=== PATIENT | male | born 1930 | race Caucasian/White ===

== ENCOUNTER 2017-04-09 20:56 | Inpatient (IN) | payer MEDICARE ==
[~2017-04-09] VITALS: Ht 177.8 cm; Wt 79.6 kg
[~2017-04-09 20:56] MED LIST: ASPI81TA19; CALC1TAB87 PO; NITR0.4S SL; OMEP20TA93 PO; PRAV20TA2 PO; TRIA0.1L TOPICAL
[2017-04-09 20:57] VITALS: BP 124/60; PULSE 111; RESP 16; TEMP 102.5; O2SAT 95
[2017-04-09] MEDS ORDERED: IOHEXOL 350 MG/ML 10 ML VIAL (for RAD DIAG) IVCONTRAST ONE (20:57)
[2017-04-09] MEDS ORDERED: ACETAMINOPHEN 325 MG TAB PO ONE (21:15)
[2017-04-09] MEDS ORDERED: SODIUM CHLOR 0.9% 1000 ML INJ 1,000 ML IV ONE ×2 (21:15)
[2017-04-09 21:19] VITALS: RESP 16; O2SAT 97
[2017-04-09 21:50] LABS: AUTOMATED NEUTROPHIL # 82.6 TH/MM3 (1.8-7.7); BASOPHIL # 0.1 TH/MM3 (0-0.2); BASOPHIL % 0.1 % (0.0-2.0); EOSINOPHIL # 0.1 TH/MM3 (0-0.4); EOSINOPHIL % 0.1 % (0.0-4.0); HEMATOCRIT 40.3 % (39.0-51.0); LYMPHOCYTE # 0.8 TH/MM3 (1.0-4.8); MEAN CELL VOLUME 86.9 FL (80.0-100.0); MEAN CORPUSCULAR HEMOGLOBIN 28.9 PG (27.0-34.0); MEAN CORPUSCULAR HGB CONC 33.3 % (32.0-36.0); MONO % 1.8 % (0.0-8.0); PLATELET COUNT 308 TH/MM3 (150-450); RED BLOOD COUNT 4.64 MIL/MM3 (4.50-5.90); RED CELL DISTRIBUTION WIDTH 13.7 % (11.6-17.2); WHITE BLOOD COUNT 85.2 TH/MM3 (4.0-11.0)
--- NOTE | 2017-04-09 21:57 | RADRPT ---
EXAM DATE/TIME: 04/09/2017 21:28 [facility] COMPARISON: CHEST SINGLE AP, August 04, 2015, 19:07. INDICATIONS : Chest pain. MEDICAL HISTORY : Myocardial infarction. Hypertension Gastroesophageal reflux disease. COPD. SURGICAL HISTORY : TURP. ENCOUNTER: Initial ACUITY: 1 day PAIN SCORE: 5/10 LOCATION: Bilateral chest FINDINGS: A single view of the chest demonstrates the lungs to be symmetrically aerated without evidence of mas s, infiltrate or effusion. The cardiomediastinal contours are unremarkable. Osseous structures are intact. CONCLUSION: No acute disease. Morgan Patterson Jr., MD on April 09, 2017 at 21:55 Board Certified Radiologist. This report was verified electronically.
[2017-04-09 22:07] LABS: ANION GAP 9 MEQ/L (5-15); AST (GOT) 195 U/L (15-37); BICARBONATE 27.9 MEQ/L (21.0-32.0); BLOOD UREA NITROGEN 14 MG/DL (7-18); CHLORIDE 96 MEQ/L (98-107); GLOMERULAR FILTRATION RATE 64 ML/MIN (>89); HEMO FLAGS AUTO DIFF; MAGNESIUM 2.1 MG/DL (1.5-2.5); SODIUM (NA) 133 MEQ/L (136-145)
[2017-04-09 22:08] LABS: ALT (GPT) 85 U/L (12-78)
[2017-04-09 22:10] LABS: ALKALINE PHOSPHATASE 365 U/L (45-117); TOTAL BILIRUBIN ADULT 1.3 MG/DL (0.2-1.0)
[2017-04-09 22:12] LABS: BLOOD, URINE NEG (NEG); GLUCOSE,URINE NEG (NEG); KETONE, URINE NEG (NEG); MUCUS URINE FEW /lpf (OCC); NITRITE,URINE NEG (NEG); SQUAMOUS EPITHELIAL CELL URINE <1 /hpf (0-5); URINE COLOR YELLOW (YELLW/STRAW)
[2017-04-09 22:13] LABS: COMMENT (UR) CATH-CULT NOT IND; CULTURE IF INDICATED CATH CULTURE NOT IND
[2017-04-09] MEDS ORDERED: PIPERACIL-TAZO 3.375 GM PREMIX 50 ML IV ONE (22:15)
[2017-04-09] MEDS ORDERED: VANCOMYCIN INJ 1,000 MG in SODIUM CHLOR 0.9% 250 ML INJ 250 ML IV ONE (22:15)
[2017-04-09 22:30] VITALS: BP 105/61; PULSE 102; RESP 18; O2SAT 98
[2017-04-09 23:09] LABS: BANDS 22 % (0-6); METAMYELOCYTES 1 % (0-1); MYELOCYTES 1 % (0-0); NEUTROPHIL # MANUAL DIFF 77.5 TH/MM3 (1.8-7.7); POLYS (SEG NEUTROPHILS) 65 % (16-70); PROMYELOCYTES 2 % (0-0); WBC DIFF SAMPLE 100
[2017-04-09 23:10] LABS: DOHLE BODIES PRESENT (NONE SEEN); TOXIC GRANULATION 1+ (NORMAL)
[2017-04-09 23:11] LABS: BURR CELLS 1+ (NORMAL); OVALOCYTES 1+ (NORMAL); SCAN/DIFF FINAL DIFF MANUAL
[2017-04-09 23:36] LABS: LACTIC ACID GHOST NOT REPORTABLE
--- NOTE | 2017-04-09 23:44 | RADRPT ---
EXAM DATE/TIME: 04/09/2017 23:05 [facility] COMPARISON: CT ABDOMEN & PELVIS W CONTRAST, August 25, 2015, 1:29. INDICATIONS : Patient weak, history of diverticulitis. IV CONTRAST: 97 cc Omnipaque 350 (iohexol) IV ORAL CONTRAST: No oral contrast ingested. RADIATION DOSE: 6.54 CTDIvol (mGy) MEDICAL HISTORY : Cardiovascular disease. Hypertension. SURGICAL HISTORY : None. ENCOUNTER: Initial ACUITY: 1 day PAIN SCALE: 5/10 LOCATION: abdomen TECHNIQUE: Volumetric scanning of the abdomen and pelvis was performed. Using automated exposure control and ad justment of the mA and/or kV according to patient size, radiation dose was kept as low as reasonably achievable to obtain optimal diagnostic quality images. DICOM format image data is available electro nically for review and comparison. FINDINGS: There is subsegmental atelectasis in the both bases. 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 There is a 2 CM in her lymph node in the geeta hepatis characteristic of m etastatic disease. The spleen is normal in size and free of focal defects. The pancreas demonstrates no evidence of mass and there is no dilatation of the pancreatic duct. The adrenal glands are unremar kable. The right kidney is unremarkable. There is a single simple cyst in the left kidney measuring 2 cm. There is free fluid in the pelvis. The bladder appears normal. No wall thickening or intraluminal mas ses are identified. No abnormally enlarged lymph nodes are identified. CONCLUSION: 1. 9 cm mass in the right lobe liver which may reflect gallbladder carcinoma or hepatocellular carcin ismael. This would be accessible to percutaneous biopsy. 2. Mild ascites Raul Rodarte MD on April 09, 2017 at 23:36 Board Certified Radiologist. This report was verified electronically.
[2017-04-09 23:50] LABS: URIC ACID 5.5 MG/DL (2.6-7.2)
--- NOTE | 2017-04-09 23:52 | PD ---
HPI Chief Complaint: General Weakness Time Seen by Provider: 21:11 Travel History International Travel<30 days: No Contact w/Intl Traveler<30days: No Traveled to known affect area: No History of Present Illness HPI Send 86-year-old man who presents to the emergency department complaining of generalized weakness and increased falls ongoing for month or 2, worse over the past week. He's also had night sweats with fevers and chills. He's had some right sided abdominal pain with constipation and decreased appetite. His a history of COPD and is shortness of breath and dyspnea on exertions been worse for the past month or so. Symptoms of been subacutely worsening over that same time. No other aggravating or alleviating factors. History Past Medical History Narrative Medical History diverticulitis COPD CAD, history of [place] in the past History of hypertension, not on medications now History of hyperlipidemia, also off medications now Social History Alcohol Use: Yes (OCC. BEER) Tobacco Use: No (QUIT CHEWING TOBACCO) Allergies-Medications (Allergen,Severity, Reaction): Coded Allergies: prednisone (Unverified Adverse Reaction, Intermediate, ELEVATED BLOOD GLUCOSE, 04/09/17) Reported Meds & Prescriptions Reported Meds & Active Scripts Active Triamcinolone Topical (Triamcinolone Acetonide) 0.1% Lotn 1 Applic TOPICAL TID Reported Aspir-Low (Aspirin) 81 Mg Tabdr Nitrostat SL (Nitroglycerin) 0.4 Mg Subl 0.4 Mg SL DIRECTED PRN 1 tablet under the tongue as needed for chest pain. Repeat every 5 minutes for a total of 3 DOSES or call 911 if NO relief. Omeprazole 20 Mg Tab 20 Mg PO DAILY Calcium 600 with Vitamin D (Calcium Carbonate-Cholecalciferol) 600-400 mg-Unit Tab 1 Tab PO DAILY Review of Systems Except as stated in HPI: all other systems reviewed are Neg Physical Exam Narrative GENERAL: 86-year-old man, there is a little bit chronically ill. Nontoxic. SKIN: Focused skin assessment warm/dry. HEAD: Atraumatic. Normocephalic. EYES: Pupils equal and round. No scleral icterus. No injection or drainage. ENT: No nasal bleeding or discharge. Mucous membranes pink and moist. NECK: Trachea midline. No JVD. CARDIOVASCULAR: Heart rates over rapid. Audible systolic murmur. RESPIRATORY: Mild tachypnea. Lungs are clear. GASTROINTESTINAL: Abdomen soft, non-tender, nondistended. Hepatic and splenic margins not palpable. MUSCULOSKELETAL: No obvious deformities. No clubbing. No cyanosis. No edema. NEUROLOGICAL: Awake and alert. No obvious cranial nerve deficits. Motor grossly within normal limits. Normal speech. PSYCHIATRIC: Appropriate mood and affect; insight and judgment normal. Data Data Last Documented VS Vital Signs Date Time Temp Pulse Resp B/P (MAP) Pulse Ox O2 Delivery O2 Flow Rate FiO2 04/09/17 22:30 102 18 105/61 (76) 98 Room Air 04/09/17 20:57 102.5 Orders Orders Electrocardiogram (04/09/17 21:11) Complete Blood Count With Diff (04/09/17 21:11) Comprehensive Metabolic Panel (04/09/17 21:11) Lactic Acid Sepsis Protocol (04/09/17 21:11) Magnesium (Mg) (04/09/17 21:11) Lipase (04/09/17 21:11) Urinalysis - C+S If Indicated (04/09/17 21:11) Influenzae A/B Antigen (04/09/17 21:11) Blood Culture (04/09/17 21:11) Chest, Single Ap (04/09/17 21:11) Blood Glucose (04/09/17 21:11) Ecg Monitoring (04/09/17 21:11) Iv Access Insert/Monitor (04/09/17 21:11) Oximetry (04/09/17 21:11) Oxygen Administration (04/09/17 21:11) Acetaminophen (Tylenol) (04/09/17 21:15) Sodium Chlor 0.9% 1000 Ml Inj (Ns 1000 M (04/09/17 21:15) Sodium Chlor 0.9% 1000 Ml Inj (Ns 1000 M (04/09/17 21:15) Ct Abd/Pel W Iv Contrast(Rout) (04/09/17 ) Vancomycin Inj (Vancomycin Inj) (04/09/17 22:15) Piperacil-Tazo 3.375 Gm Premix (Zosyn 3. (04/09/17 22:15) Uric Acid (04/09/17 23:13) Ldh Serum (04/09/17 23:13) Pathologist Smear Review (04/09/17 23:13) Consult Hematology (04/09/17 ) Iohexol 350 Inj (Omnipaque 350 Inj) (04/09/17 20:57) Admit Order (Ed Use Only) (04/09/17 ) Vital Signs (Adult) Q4H (04/09/17 23:59) Diet Heart Healthy (04/10/17 Breakfast) Activity Bed Rest (04/09/17 23:59) Notify Dr: Other (04/09/17 23:59) Labs Laboratory Tests Test 04/09/17 21:30 04/09/17 21:59 04/09/17 23:43 White Blood Count 85.2 TH/MM3 Red Blood Count 4.64 MIL/MM3 Hemoglobin 13.4 GM/DL Hematocrit 40.3 % Mean Corpuscular Volume 86.9 FL Mean Corpuscular Hemoglobin 28.9 PG Mean Corpuscular Hemoglobin Concent 33.3 % Red Cell Distribution Width 13.7 % Platelet Count 308 TH/MM3 Mean Platelet Volume 7.3 FL Neutrophils (%) (Auto) 97.0 % Lymphocytes (%) (Auto) 1.0 % Monocytes (%) (Auto) 1.8 % Eosinophils (%) (Auto) 0.1 % Basophils (%) (Auto) 0.1 % Neutrophils # (Auto) 82.6 TH/MM3 Lymphocytes # (Auto) 0.8 TH/MM3 Monocytes # (Auto) 1.5 TH/MM3 Eosinophils # (Auto) 0.1 TH/MM3 Basophils # (Auto) 0.1 TH/MM3 CBC Comment AUTO DIFF Differential Total Cells Counted 100 Neutrophils % (Manual) 65 % Band Neutrophils % 22 % Lymphocytes % 3 % Monocytes % 6 % Neutrophils # (Manual) 77.5 TH/MM3 Metamyelocytes 1 % Myelocytes 1 % Promyelocytes 2 % Differential Comment FINAL DIFF MANUAL Atypical Lymphocytes % Toxic Granulation 1+ Dohle Bodies PRESENT Ovalocytes 1+ [place] Cells 1+ Blood Smear Pathologist Review Blood Urea Nitrogen 14 MG/DL Creatinine 1.09 MG/DL Random Glucose 139 MG/DL Total Protein 6.2 GM/DL Albumin 2.6 GM/DL Calcium Level 10.1 MG/DL Magnesium Level 2.1 MG/DL Alkaline Phosphatase 365 U/L Aspartate Amino Transf (AST/SGOT) 195 U/L Alanine Aminotransferase (ALT/SGPT) 85 U/L Total Bilirubin 1.3 MG/DL Sodium Level 133 MEQ/L Potassium Level 4.0 MEQ/L Chloride Level 96 MEQ/L Carbon Dioxide Level 27.9 MEQ/L Anion Gap 9 MEQ/L Estimat Glomerular Filtration Rate 64 ML/MIN Lactic Acid Level 3.0 mmol/L Uric Acid 5.5 MG/DL Lactate Dehydrogenase 413 U/L Lipase 69 U/L Urine Color YELLOW Urine Turbidity CLEAR Urine pH 7.0 Urine Specific [place] 1.017 Urine Protein TRACE mg/dL Urine Glucose (UA) NEG mg/dL Urine Ketones NEG mg/dL Urine Occult Blood NEG Urine Nitrite NEG Urine Bilirubin NEG Urine Urobilinogen 2.0 MG/DL Urine Leukocyte Esterase NEG Urine RBC 3 /hpf Urine WBC 4 /hpf Urine Squamous Epithelial Cells <1 /hpf Urine Mucus FEW /lpf Microscopic Urinalysis Comment CATH-CULT NOT IND MDM Medical Decision Making Medical Screen Exam Complete: No Emergency Medical Condition: No Interpretation(s) My review of EKG: Sinus tachycardia at a rate of 106, leftward axis, possible left anterior fascicular block, normal intervals, no definite evidence of acute ischemia. LABS: CBC remarkable for a white count of 85,000, 22% bands CMP remarkable for elevated total bili, AST, ALT, alkaline phosphatase Low total protein Lactate 3.0 UA is unremarkable. Chest x-ray: No acute disease. CT abdomen and pelvis: 9 cm mass in the right lobe of the liver which may reflect gallbladder carcinoma or hepatocellular carcinoma. Mild ascites. Differential Diagnosis Infection, sepsis UTI, pneumonia, malignancy, other Narrative Course Medical decision-making 86-year-old man who presents to the emergency department complaining of generalized weakness, night sweats, fevers chills, worsening of the past week or so. Markedly elevated white count suggesting malignancy or severe infection , favor malignancy. CT scan shows hepatic mass. Empirically covered antibiotics, given IV fluid resuscitation. I spoke with Dr. Reza, who requested LDH and additional labs. He will consult on patient. We'll plan on admission to medicine. Diagnosis Primary Impression: Leukocytosis Additional Impression: Liver mass Chapo Contreras MD Apr 09, 2017 23:52
[2017-04-10] VITALS (13 sets, daily range): BP systolic 74–104; BP diastolic 50–58; PULSE 86–110; RESP 16–20; TEMP 96.8–99.1; O2SAT 90–96
[2017-04-10] MEDS: SODIUM CHLOR 0.9% 1000 ML INJ 1,000 ML IV SCH ×4 (00:13→20:11)
[2017-04-10] MEDS ORDERED: SENNOSIDES 8.6 MG TAB PO PRN (00:15)
[2017-04-10] MEDS ORDERED: Vancomycin Consult Pharmacy 1 EA OTHER SCH (00:15)
[2017-04-10] MEDS ORDERED: ACETAMINOPHEN/HYDROcodone 325 MG/5 MG TAB PO PRN (00:15)
[2017-04-10] MEDS ORDERED: ACETAMINOPHEN 325 MG TAB PO PRN (00:15)
[2017-04-10] MEDS ORDERED: ONDANSETRON HCL 4 MG/2 ML VIAL IVP PRN (00:15)
[2017-04-10] MEDS ORDERED: LACTULOSE SYRUP 20 GM/30 ML CUP PO PRN (00:15)
[2017-04-10] MEDS ORDERED: BISACODYL 10 MG SUPP RECTAL PRN (00:15)
[2017-04-10] MEDS ORDERED: SODIUM CHLORIDE 0.9% FLUSH 10 ML FLUSH IV FLUSH PRN (00:15)
[2017-04-10] MEDS ORDERED: MORPHINE SULFATE 4 MG/ML INJ IV PUSH PRN (00:15)
[2017-04-10] MEDS ORDERED: MAGNESIUM HYDROXIDE SUSP 30 ML CUP PO PRN (00:15)
--- NOTE | 2017-04-10 01:38 | HHI.HP ---
HPI Service [facility] Primary Care Physician Azul Jones MD Admission Diagnosis Leukocytosis, liver mass Diagnoses: (1) Sepsis Diagnosis: Principal (2) Leukocytosis Diagnosis: Principal (3) Dehydration Diagnosis: Principal (4) Liver mass Diagnosis: Principal Travel History International Travel<30 Days: No Contact w/Intl Traveler <30 Da: No Traveled to Known Affected Are: No History of Present Illness This is an 86-year-old male with PMH of HTN, CAD, COPD and Hyperlipidemia who presented to the ER with complaints of generalized weakness and recurrent falls for 3-4wks. States weakness progressively worse, today w/ fall x2. Denies head trauma or LOC. Denies chest pain, cough or sick contacts. Does report fever, chills and night sweats x1 wk. On arrival, BP 124/60, HR 111, O2 sat 95 % on RA, Temp 102.5. WBC 85.2, previously 9.3 on 10/07/15. Bands 22%. GFR 64. Lactic Acid 3.0. LFTs elevated. UA negative. CXR with no acute findings. CT Abd/Pelvis w/ 9cm liver mass, possibly gallbladder carcinoma or hepatocellular carcinoma, amenable to biopsy. Dr. Epps consulted by ER physician, recommended LDH and further eval for likely ca. S/p Blood Cultures, Vanc/Zosyn in ER. Review of Systems Except as stated in HPI: all other systems reviewed are Neg ROS: 14 point review of systems otherwise negative. Past Family Social History Past Medical History PMH: HTN, CAD, COPD and Hyperlipidemia Past Surgical History PAST SURGICAL HISTORY: Cataract Surgery, Lens Implant, TURP Allergies: Coded Allergies: prednisone (Unverified Adverse Reaction, Intermediate, ELEVATED BLOOD GLUCOSE, 04/09/17) Family History PAST FAMILY HISTORY: Reviewed. No h/o DM or CAD Social History PAST SOCIAL HISTORY: Negative for alcohol, tobacco or drugs. Physical Exam Vital Signs Vital Signs Date Time Temp Pulse Resp B/P (MAP) Pulse Ox O2 Delivery O2 Flow Rate FiO2 04/10/17 01:03 97.4 98 18 99/50 (66) 94 04/10/17 00:50 04/09/17 22:30 102 18 105/61 (76) 98 Room Air 04/09/17 21:19 16 97 Room Air 04/09/17 21:19 97 Room Air 04/09/17 20:57 102.5 111 16 124/60 (81) 95 Room Air Physical Exam PE: GENERAL: Pleasant elderly white male in no acute distress. HEENT: PERRLA, EOMI. No scleral icterus or conjunctival pallor. No lid lag or facial droop. CARDIOVASCULAR: Regular rate and rhythm. No obvious murmurs to auscultation. No chest tenderness to palpation. RESPIRATORY: No obvious rhonchi or wheezing. Clear to auscultation. Breath sounds equal bilaterally. GASTROINTESTINAL: Abdomen soft, non-tender, nondistended. BS normal. MUSCULOSKELETAL: Extremities without clubbing, cyanosis, or edema. No obvious deformities. NEUROLOGICAL: Awake, alert and oriented x4. No focal neurologic deficits. Moving both upper and lower extremities spontaneously. Laboratory Laboratory Tests Test 04/09/17 21:30 04/09/17 21:59 04/09/17 23:43 White Blood Count 85.2 Red Blood Count 4.64 Hemoglobin 13.4 Hematocrit 40.3 Mean Corpuscular Volume 86.9 Mean Corpuscular Hemoglobin 28.9 Mean Corpuscular Hemoglobin Concent 33.3 Red Cell Distribution Width 13.7 Platelet Count 308 Mean Platelet Volume 7.3 Neutrophils (%) (Auto) 97.0 Lymphocytes (%) (Auto) 1.0 Monocytes (%) (Auto) 1.8 Eosinophils (%) (Auto) 0.1 Basophils (%) (Auto) 0.1 Neutrophils # (Auto) 82.6 Lymphocytes # (Auto) 0.8 Monocytes # (Auto) 1.5 Eosinophils # (Auto) 0.1 Basophils # (Auto) 0.1 CBC Comment AUTO DIFF Differential Total Cells Counted 100 Neutrophils % (Manual) 65 Band Neutrophils % 22 Lymphocytes % 3 Monocytes % 6 Neutrophils # (Manual) 77.5 Metamyelocytes 1 Myelocytes 1 Promyelocytes 2 Differential Comment FINAL DIFF MANUAL Atypical Lymphocytes Toxic Granulation 1+ Dohle Bodies PRESENT Ovalocytes 1+ [place] Cells 1+ Blood Smear Pathologist Review Blood Urea Nitrogen 14 Creatinine 1.09 Random Glucose 139 Total Protein 6.2 Albumin 2.6 Calcium Level 10.1 Magnesium Level 2.1 Alkaline Phosphatase 365 Aspartate Amino Transf (AST/SGOT) 195 Alanine Aminotransferase (ALT/SGPT) 85 Total Bilirubin 1.3 Sodium Level 133 Potassium Level 4.0 Chloride Level 96 Carbon Dioxide Level 27.9 Anion Gap 9 Estimat Glomerular Filtration Rate 64 Lactic Acid Level 3.0 2.2 Uric Acid 5.5 Lactate Dehydrogenase 413 Lipase 69 Urine Color YELLOW Urine Turbidity CLEAR Urine pH 7.0 Urine Specific [place] 1.017 Urine Protein TRACE Urine Glucose (UA) NEG Urine Ketones NEG Urine Occult Blood NEG Urine Nitrite NEG Urine Bilirubin NEG Urine Urobilinogen 2.0 Urine Leukocyte Esterase NEG Urine RBC 3 Urine WBC 4 Urine Squamous Epithelial Cells <1 Urine Mucus FEW Microscopic Urinalysis Comment CATH-CULT NOT IND Date/Time Source Procedure Growth Status 04/09/17 21:30 Blood Peripheral Aerobic Blood Culture Pending Received 04/09/17 21:30 Blood Peripheral Anaerobic Blood Culture Pending Received 04/09/17 21:42 Nasal Washing Influenza Types A,B Antigen (MARK) - Final NEGATIVE FOR FLU A AND B ANTIGEN.... Complete Result Diagram: 04/09/17212904/09/172129 Caprini VTE Risk Assessment Caprini VTE Risk Assessment: Mod/High Risk (score >= 2) Caprini Risk Assessment Model Point Value = 1 Point Value = 2 Point Value = 3 Point Value = 5 Age 41-60 Minor surgery BMI > 25 kg/m2 Swollen legs Varicose veins or History of unexplained or recurrent spontaneous Oral contraceptives or hormone replacement Sepsis (< 1 month) Serious lung disease, including pneumonia (< 1 month) Abnormal pulmonary function Acute myocardial infarction Congestive heart failure (< 1 month) History of inflammatory bowel disease Medical patient at bed rest Age 61-74 Arthroscopic surgery Major open surgery (> 45 min) Laparoscopic surgery (> 45 min) Malignancy Confined to bed (> 72 hours) Immobilizing plaster cast Central venous access Age >= 75 History of VTE Family history of VTE Factor V Leiden Prothrombin [id number] Lupus anticoagulant Anticardiolipin antibodies Elevated serum homocysteine Heparin-induced thrombocytopenia Other congenital or acquired thrombophilia Stroke (< 1 month) Elective arthroplasty Hip, pelvis, or leg fracture Acute spinal cord injury (< 1 month) Prophylaxis Regimen Total Risk Factor Score Risk Level Prophylaxis Regimen 0-1 Low Early ambulation 2 Moderate Order ONE of the following: *Sequential Compression Device (SCD) *Heparin 5000 units SQ BID 3-4 Higher Order ONE of the following medications: *Heparin 5000 units SQ TID *Enoxaparin/Lovenox 40 mg SQ daily (WT < 150 kg, CrCl > 30 mL/min) *Enoxaparin/Lovenox 30 mg SQ daily (WT < 150 kg, CrCl > 10-29 mL/min) *Enoxaparin/Lovenox 30 mg SQ BID (WT < 150 kg, CrCl > 30 mL/min) AND/OR *Sequential Compression Device (SCD) 5 or more Highest Order ONE of the following medications: *Heparin 5000 units SQ TID (Preferred with Epidurals) *Enoxaparin/Lovenox 40 mg SQ daily (WT < 150 kg, CrCl > 30 mL/min) *Enoxaparin/Lovenox 30 mg SQ daily (WT < 150 kg, CrCl > 10-29 mL/min) *Enoxaparin/Lovenox 30 mg SQ BID (WT < 150 kg, CrCl > 30 mL/min) AND *Sequential Compression Device (SCD) Assessment and Plan Problem List: (1) Sepsis ICD Code: A41.9 - Sepsis, unspecified organism (2) Leukocytosis ICD Code: D72.829 - Elevated white blood cell count, unspecified (3) Liver mass ICD Code: R16.0 - Hepatomegaly, not elsewhere classified Status: Acute (4) Dehydration ICD Code: E86.0 - Dehydration Assessment and Plan A/P: 1. Sepsis: Temp 102.5, HR 111, Source-unclear. S/p Blood Cultures, Vanc/ Zosyn in ER. Follow up cultures, continue IV Abx. U/a negative, CXR w/ no acute findings, images reviewed by me. 2. Leukocytosis: WBC 85.2, previously 9.3 on 10/07/15, +bandemia, concern for underlying malignancy, Dr. Epps consulted by ER physician, recommended additional lab work and will eval in am. 3. Liver Mass: CT Abd/Pelvis w/ possible gallbladder ca vs hepatocellular ca, images reviewed by me. Oncology consulted 4. Dehydration: GFR 64, U/a negative, IVF for hydration. 5. DVT Prophylaxis: SCD/Teds. 6. Social work for d/c planning as needed. 7. Case discussed w/ ER physician at length. Physician Certification 2 Midnight Certification Type: Admission for Inpatient Services Order for Inpatient Services The services are ordered in accordance with Medicare regulations or non- Medicare payer requirements, as applicable. In the case of services not specified as inpatient-only, they are appropriately provided as inpatient services in accordance with the 2-midnight benchmark. Estimated LOS (days): 2 days is the estimated time the patient will need to remain in the hospital, assuming treatment plan goals are met and no additional complications. Post-Hospital Plan: Not yet determined Kiesha Garcia MD Apr 10, 2017 01:38
[2017-04-10] MEDS ORDERED: SODIUM CHLOR 0.9% 1000 ML INJ 1,000 ML IV ONE ×2 (04:30→06:30)
[2017-04-10 07:26] LABS: AUTOMATED NEUTROPHIL # 101.4 TH/MM3 (1.8-7.7); BASOPHIL # 0.3 TH/MM3 (0-0.2); BASOPHIL % 0.3 % (0.0-2.0); EOSINOPHIL # 0.3 TH/MM3 (0-0.4); EOSINOPHIL % 0.3 % (0.0-4.0); HEMATOCRIT 35.4 % (39.0-51.0); LYMPH % 0.5 % (9.0-44.0); LYMPHOCYTE # 0.5 TH/MM3 (1.0-4.8); MEAN CELL VOLUME 88.2 FL (80.0-100.0); MEAN CORPUSCULAR HEMOGLOBIN 28.8 PG (27.0-34.0); MEAN CORPUSCULAR HGB CONC 32.7 % (32.0-36.0); NEUT % 96.9 % (16.0-70.0); PLATELET COUNT 307 TH/MM3 (150-450); RED BLOOD COUNT 4.01 MIL/MM3 (4.50-5.90); RED CELL DISTRIBUTION WIDTH 13.8 % (11.6-17.2); WHITE BLOOD COUNT 104.5 TH/MM3 (4.0-11.0)
[2017-04-10 07:27] LABS: HEMO FLAGS AUTO DIFF
[2017-04-10 08:09] LABS: BICARBONATE 23.6 MEQ/L (21.0-32.0); POTASSIUM 4.5 MEQ/L (3.5-5.1)
[2017-04-10 08:15] LABS: BANDS 11 % (0-6); NEUTROPHIL # MANUAL DIFF 103.5 TH/MM3 (1.8-7.7); POLYS (SEG NEUTROPHILS) 88 % (16-70); WBC DIFF SAMPLE 100
[2017-04-10 08:17] LABS: PLATELET ESTIMATE SMEAR NORMAL (NORMAL); PLATELET MORPHOLOGY NORMAL (NORMAL); SCAN/DIFF FINAL DIFF MANUAL
[2017-04-10] MEDS: CEFEPIME INJ 1,000 MG in SODIUM CHLORIDE 0.9% INJ 100 ML IV SCH ×2 (08:44→20:08)
[2017-04-10] MEDS: SODIUM CHLORIDE 0.9% FLUSH 10 ML FLUSH IV FLUSH SCH ×2 (08:44→20:09)
[2017-04-10] MEDS: TRIAMCINOLONE ACET 0.1% LOTION 60 ML BTL TOPICAL SCH ×3 (08:45→17:18)
[2017-04-10] MEDS: DOCUSATE SODIUM 50 MG/SENNA 8.6 MG TAB PO SCH ×2 (08:45→20:09)
--- NOTE | 2017-04-10 12:29 | EKG ---
Date Performed: 04/09/2017 Time Performed: 21:40:56 PTAGE: 86 years EKG: SINUS TACHYCARDIA PATTERN CONSISTENT WITH PULMONARY DISEASE LEFT ANTERIOR FASCICULAR BLOCK ABNORMAL ECG PREVIOUS TRACING : 08/04/2015 19.38 Since previous tracing, there is no longer criteria for inf erior infarct age indeterminate; otherwise, no significant change. DOCTOR: Nic Roberts Interpretating Date/Time 04/10/2017 12:27:51
[2017-04-10] MEDS ORDERED: MAGNESIUM HYDROXIDE SUSP 30 ML CUP PO ONE (14:30)
[2017-04-10] MEDS ORDERED: DOCUSATE SODIUM 50 MG/SENNA 8.6 MG TAB PO ONE (14:30)
[2017-04-10] MEDS ORDERED: VANCOMYCIN INJ 1,250 MG in SODIUM CHLOR 0.9% 250 ML INJ 250 ML IV SCH (18:00)
[2017-04-10] MEDS ORDERED: SODIUM CHLORID 0.9% 500 ML INJ 500 ML IV ONE (23:45)
[2017-04-11] VITALS (7 sets, daily range): BP systolic 92–101; BP diastolic 60–71; PULSE 111–121; RESP 16–22; TEMP 96.7–99.1; O2SAT 87–93
[2017-04-11] MEDS: SODIUM CHLOR 0.9% 1000 ML INJ 1,000 ML IV SCH ×2 (01:50→15:51)
--- NOTE | 2017-04-11 05:46 | MB ---
cc: TOMASZ CUBA DATE OF CONSULTATION: 04/10/2017 DATE OF : 1930. REASON FOR CONSULTATION Patient with severe leukocytosis. HISTORY OF PRESENT ILLNESS: This is an 86 year-old male with a history of hypertension, coronary artery disease, COPD and hyperlipidemia, who presents to the emergency department with progressive weakness, weight loss and night sweats. He has been having night sweats for the past six months and states that his shirt is drenched in sweat at night. He has been losing weight and endorses 35 pound weight loss. His appetite is poor. He has had recurrent falls over the past 3-4 weeks. In the emergency department, the patient was found to have leukocytosis with a white blood cell count of 85.2. This has climbed up to 104,000. His hemoglobin was 13.4 and platelet count was 308. His BNP was elevated to 328. His LDH was elevated to 413. On the differential neutrophils are increased. There are a few bands. The patient underwent CT scan of the abdomen which revealed a 9-cm mass in the right lobe of the liver which is concerning for metastatic carcinoma. The patient has not had any fevers since admission. He has had somewhat low blood pressure and he is tachycardiac. Blood cultures were drawn on admission and they are positive for gram-negative rods. The patient is currently on IV cefepime. REVIEW OF SYSTEMS A comprehensive 14-point review of systems was completed which is negative except as described in the HPI. PAST MEDICAL HISTORY 1. Hypertension 2. Coronary artery disease 3. COPD 4. Hyperlipidemia. PAST SURGICAL HISTORY Cataract surgery. Lens implant. TURP x3. MEDICATIONS 1. Vancomycin 1250 IV q18 hours. 2. Cefepime 1000 milligrams IV q12 hours. 3. Senna/docusate p.r.n. 4. Triamcinolone cream applied topically t.i.d. p.r.n. 5. Zofran 4 mg IV p.r.n. 6. Tylenol 650 p.o. p.r.n. 7. Cecil 5/325 one tablet p.o. q4 hours p.r.n. 8. Morphine sulfate injection 2 milligrams IV q3 hours p.r.n. 9. Milk of Magnesia p.r.n. 10. Senna one tablet p.o. p.r.n. ALLERGIES PREDNISONE. FAMILY HISTORY: Family history was reviewed and is noncontributory to this admission. SOCIAL HISTORY He does not smoke cigarettes. He does not drink alcohol. No illicit drug use. PHYSICAL EXAMINATION Vital signs: Blood pressure is 104/56, pulse is in the 100s, temperature is 98.7, O2 sats are 94% on room air. General: Elderly patient in no apparent distress. HEENT: Pupils are equal, round, and reactive to light. EOMI. No oral thrush. No oral lesions. Neck is supple. No JVD, no bruits. No lymphadenopathy. Chest: Clear to auscultation bilaterally. Cardiac: Tachycardiac. S1-S2 regular rate. Abdomen: Right upper quadrant tenderness. Bowel sounds are present. Extremities: Without any edema, erythema or cyanosis. Skin: Without any petechiae, lesion or bruises. Neuro: No focal deficits. Psychiatric: Mood and affect is appropriate. LABORATORY DATA WBC 104.5, hemoglobin 11.6, platelet count is 307, neutrophils are increased, lymphocytes are 0.5, bands are reported on the differential. Serum chemistries: Sodium of 137, potassium 4.5, chloride 106, CO2 23.6, BUN is 13, creatinine 0.89, GFR is 81, lactic acid is 1.9, calcium 8.60, BMP 228. LDH is 413. IMAGING STUDIES CT scan of the abdomen and pelvis was reviewed. There is a 9 cm mass in the right lobe of the liver. ASSESSMENT/PLAN This is an 86-year-old male with a history of hypertension, hyperlipidemia, coronary artery disease who presents to the emergency department with a 6-month history of loss of appetite, weight loss of 30 pounds and night sweats. 1. Leukocytosis with a white blood cell count in the 104,000 range. These are primarily neutrophils. I have reviewed the peripheral smear. No atypical lymphocytes or blast cells were seen. Neutrophils show toxic granulation and Dohle bodies which can be seen with an infectious process. There is a possibility of leukemoid reaction. However, there is a possibility of underlying leukemia or lymphoma. His blood cultures are growing gram-negative rods. I agree with IV antibiotics. If his WBC remains elevated we will obtain a bone marrow biopsy on Wednesday. I would hold off on any leukoreduction with Hydrea since he is asymptomatic. There are no other cytopenias. Hemoglobin and platelet count is within normal range. There is no lymphadenopathy on exam. I will obtain a CT of the chest. I reviewed the CT of the abdomen and there is a mass in the liver. The patient states that he has had a mass for the past two years. It has never been biopsied. We will need to biopsy this mass. 2. Liver mass as stated above. Will obtain a CT-guided biopsy of this mass on Wednesday. Will ask IR for the procedure. 3. Gram-negative bacteremia and sepsis. Continue antibiotics for susceptibility. I will follow IV and susceptibility for microbiology. Influenza screen was negative. Thank you for allowing me to participate in the care of this patient. I will continue to follow this patient along. MD ANIBAL Alegre/BOLIVAR /1:55 AM /5:19 AM SAVANNA
[2017-04-11 06:19] LABS: HEMATOCRIT 37.9 % (39.0-51.0); MEAN CELL VOLUME 88.2 FL (80.0-100.0); MEAN CORPUSCULAR HEMOGLOBIN 27.7 PG (27.0-34.0); MEAN CORPUSCULAR HGB CONC 31.4 % (32.0-36.0); PLATELET COUNT 347 TH/MM3 (150-450); RED CELL DISTRIBUTION WIDTH 13.7 % (11.6-17.2); WHITE BLOOD COUNT 111.5 TH/MM3 (4.0-11.0)
[2017-04-11 06:25] LABS: HEMO FLAGS AUTO DIFF
[2017-04-11 07:19] LABS: ALKALINE PHOSPHATASE 306 U/L (45-117); ALT (GPT) 100 U/L (12-78); ANION GAP 9 MEQ/L (5-15); AST (GOT) 232 U/L (15-37); BICARBONATE 22.3 MEQ/L (21.0-32.0); BLOOD UREA NITROGEN 19 MG/DL (7-18); CHLORIDE 103 MEQ/L (98-107); GLOMERULAR FILTRATION RATE 50 ML/MIN (>89); POTASSIUM 4.9 MEQ/L (3.5-5.1); SODIUM (NA) 134 MEQ/L (136-145)
[2017-04-11 08:42] LABS: BANDS 11 % (0-6); NEUTROPHIL # MANUAL DIFF 109.3 TH/MM3 (1.8-7.7); POLYS (SEG NEUTROPHILS) 87 % (16-70); WBC DIFF SAMPLE 200
[2017-04-11 08:43] LABS: PLATELET ESTIMATE SMEAR NORMAL (NORMAL); PLATELET MORPHOLOGY NORMAL (NORMAL); SCAN/DIFF FINAL DIFF MANUAL
--- NOTE | 2017-04-11 08:47 | PD.ONC.PN ---
Subjective Subjective Remarks resting comfortably in bed using CPAP no fevers/no GR mild dyspnea earlier--better now. no chest discomfort family bedside Objective Data Date Time Temp Pulse Resp B/P (MAP) Pulse Ox O2 Delivery O2 Flow Rate FiO2 04/11/17 04:00 96.7 113 22 94/61 (72) 92 Manual Cuff/Palpation 04/10/17 23:10 98.0 104 20 81/56 (64) 92 04/10/17 20:06 108 04/10/17 19:00 98.5 101 16 90/51 (64) 94 04/10/17 17:11 104/56 (72) 04/10/17 16:00 99.1 110 18 87/58 (68) 90 04/10/17 11:47 99.0 97 18 97/53 (68) 93 04/10/17 10:01 93 21 04/10/17 08:48 97 04/11/17 04/11/17 04/11/17 07:00 15:00 23:00 Intake Total 1140 ml Balance 1140 ml Result Diagram: 04/11/17 0550 04/11/17 0550 Laboratory Results Laboratory Tests Test 04/11/17 05:50 White Blood Count 111.5 TH/MM3 Red Blood Count 4.30 MIL/MM3 Hemoglobin 11.9 GM/DL Hematocrit 37.9 % Mean Corpuscular Volume 88.2 FL Mean Corpuscular Hemoglobin 27.7 PG Mean Corpuscular Hemoglobin Concent 31.4 % Red Cell Distribution Width 13.7 % Platelet Count 347 TH/MM3 Mean Platelet Volume 7.4 FL CBC Comment AUTO DIFF Differential Total Cells Counted 200 Neutrophils % (Manual) 87 % Band Neutrophils % 11 % Lymphocytes % 1 % Monocytes % 2 % Neutrophils # (Manual) 109.3 TH/MM3 Differential Comment FINAL DIFF MANUAL Platelet Estimate NORMAL Platelet Morphology Comment NORMAL Red Cell Morphology Comment NORMAL Blood Urea Nitrogen 19 MG/DL Creatinine 1.35 MG/DL Random Glucose 119 MG/DL Total Protein 5.4 GM/DL Albumin 2.2 GM/DL Calcium Level 9.5 MG/DL Alkaline Phosphatase 306 U/L Aspartate Amino Transf (AST/SGOT) 232 U/L Alanine Aminotransferase (ALT/SGPT) 100 U/L Total Bilirubin 1.0 MG/DL Sodium Level 134 MEQ/L Potassium Level 4.9 MEQ/L Chloride Level 103 MEQ/L Carbon Dioxide Level 22.3 MEQ/L Anion Gap 9 MEQ/L Estimat Glomerular Filtration Rate 50 ML/MIN Culture Results Microbiology Date/Time Source Procedure Growth Status 04/09/17 21:30 Blood Peripheral Aerobic Blood Culture - Preliminary NO GROWTH IN 1 DAY Resulted 04/09/17 21:30 Anaerobic Blood Culture - Preliminary Gram Negative Mario Resulted 04/09/17 21:20 Blood Peripheral Aerobic Blood Culture - Preliminary NO GROWTH IN 1 DAY Resulted 04/09/17 21:20 Anaerobic Blood Culture - Preliminary Gram Negative Mario Resulted 04/09/17 21:42 Nasal Washing Influenza Types A,B Antigen (MARK) - Final NEGATIVE FOR FLU A AND B ANTIGEN.... Complete Administered Medications Medications (Trade) Dose Ordered Sig/Tyler Route PRN Reason Start Time Stop Time Status Last Admin Dose Admin Cefepime HCl 1000 mg/Sodium Chloride 100 ml @ 200 mls/hr Q12H IV 04/10/17 09:00 04/10/17 20:08 Sodium Chloride 1,000 ml @ 100 mls/hr Q10H IV 04/10/17 00:13 04/11/17 01:50 Acetaminophen (Tylenol) 650 mg Q6H PRN PO FEVER/PAIN SCALE 1 TO 2 04/10/17 00:15 04/10/17 17:18 Triamcinolone Acetonide (Kenalog 0.1% Lotion) 1 applic TID TOPICAL 04/10/17 09:00 04/10/17 17:18 Vancomycin HCl 1250 mg/Sodium Chloride 262.5 ml @ 250 mls/hr Q18H IV 04/10/17 18:00 04/10/17 17:17 Objective Remarks GENERAL: nad NECK: Supple, trachea midline. No JVD or lymphadenopathy. LYMPHATIC: No adenopathy. CARDIOVASCULAR: Regular rate and rhythm without murmurs. RESPIRATORY: Breath sounds equal bilaterally. No accessory muscle use. GASTROINTESTINAL: Abdomen soft, mild tenderness upper quadrant EXTREMITIES: No cyanosis, or edema. Assessment/Plan Problem List: (1) Pneumonia, community acquired ICD Codes: J18.9 - Community acquired pneumonia Status: Acute (2) COPD (chronic obstructive pulmonary disease) ICD Codes: J44.9 - Chronic obstructive pulmonary disease Status: Acute (3) Liver mass ICD Codes: R16.0 - Hepatomegaly, not elsewhere classified Status: Acute (4) Leukocytosis ICD Codes: D72.829 - Elevated white blood cell count, unspecified (5) Sepsis ICD Codes: A41.9 - Sepsis, unspecified organism (6) Dermatitis ICD Codes: L30.9 - Dermatitis, unspecified Assessment 86-year-old male with a history of hypertension, hyperlipidemia, coronary artery disease who presents to the emergency department with a 6-month history of loss of appetite, weight loss of 30 pounds and night sweats. 1. Leukocytosis continues to worsen - peripheral smear did not show any obvious blast cells - concern for underlying lymphoma,leukemia,MDS, MPN or another maligancy - Bone marrow biopsy in AM - will start Hydrea to cytoreduce - check daily LDH, Uric acid, Mag and Phosp to monitor for TLS 2. Liver mass - CT guided biopsy when bone marrow biopsy is completed - tumor markers ordered - CT chest did not show nay masses/LAD//possible pneumonia 3. Gram-negative bacteremia and sepsis. - On cefepime - ID and susceptibility pending 4. Mild dyspnea ? pneumonia/leukostasis - IV decadron X 1 - appears to be comfortable now - will closely monitor Had long discussion with patient's daughter and d/w rn o/n events reviewed Godwin Epps MD Apr 11, 2017 08:47
[2017-04-11] MEDS: DOCUSATE SODIUM 50 MG/SENNA 8.6 MG TAB PO SCH ×2 (09:00→20:27)
[2017-04-11] MEDS: CEFEPIME INJ 1,000 MG in SODIUM CHLORIDE 0.9% INJ 100 ML IV SCH (09:28)
[2017-04-11] MEDS: SODIUM CHLORIDE 0.9% FLUSH 10 ML FLUSH IV FLUSH SCH ×2 (09:28→20:24)
[2017-04-11] MEDS: TRIAMCINOLONE ACET 0.1% LOTION 60 ML BTL TOPICAL SCH ×3 (09:32→18:00)
[2017-04-11] MEDS: HYDROXYUREA 500 MG CAP PO SCH ×2 (10:42→20:26)
[2017-04-11] MEDS ORDERED: SODIUM CHLORID 0.9% 500 ML INJ 500 ML IV ONE ×2 (11:30→16:30)
[2017-04-11] MEDS ORDERED: CEFEPIME INJ 2,000 MG in SODIUM CHLORIDE 0.9% INJ 100 ML IV SCH (12:00)
[2017-04-11] MEDS ORDERED: IOHEXOL 350 MG/ML 10 ML VIAL (for RAD DIAG) IVCONTRAST ONE (13:34)
--- NOTE | 2017-04-11 13:38 | RADRPT ---
EXAM DATE/TIME: 04/11/2017 13:07 [facility] COMPARISON: CT ABDOMEN & PELVIS W CONTRAST, April 09, 2017, 23:05. CHEST SINGLE AP, April 09, 2017, 21:28. INDICATIONS : Leukocytosis, liver mass. IV CONTRAST: 100 cc Omnipaque 350 (iohexol) IV RADIATION DOSE: 5.1 CTDIvol (mGy) MEDICAL HISTORY : Chronic obstructive pulmonary disease. Gastroesophageal reflux disease. Myocardial infarction.Hyperte nsion. Skin cancer. SURGICAL HISTORY : Turp. ENCOUNTER: Initial ACUITY: 1 day PAIN SCALE: 0/10 LOCATION: chest TECHNIQUE: Volumetric scanning of the chest was performed. Using automated exposure control and adjustment of t he mA and/or kV according to patient size, radiation dose was kept as low as reasonably achievable to obtain optimal diagnostic quality images. DICOM format image data is available electronically for review and comparison. Follow-up recommendations for detected pulmonary nodules are based at a minimum on nodule size and pa tient risk factors according to Fleischner Society Guidelines. FINDINGS: LUNGS: Bibasilar atelectatic changes associated with pleural effusions. There is some patchy airspace diseas e in the right perihilar distribution. PLEURA: Moderate right and small left pleural effusion with concomitant atelectatic changes. MEDIASTINUM: The heart and great vessels demonstrate no acute abnormality. There is no mediastinal or hilar lymph adenopathy. Dense episodic calcification of the coronary arteries. There is some calcification of the aortic valve and mitral valve annulus. AXILLAE: Within normal limits. No lymphadenopathy. SKELETAL: Within normal limits for patient age. MISCELLANEOUS: The visualized upper abdominal organs demonstrate 2.6 cm pedunculated mass lesion off the posterior r ight hepatic lobe. A faint hypodensity in the left hepatic lobe is seen on the last image. These are concerning for metastatic deposits. Abdominal ascites in the upper abdomen. 2.1 cm probable cyst in t he left kidney. CONCLUSION: 1. Moderate right and small left pleural effusion with concomitant bibasilar atelectatic changes. 2. In addition, there is patchy airspace disease in the right perihilar distribution. This may repres ent focal pulmonary edema although early infiltrate cannot be excluded. 3. 2.6 cm mass lesion pedunculated off the posterior aspect of the right hepatic lobe with a faint hy podensity in the left hepatic lobe. Please see the CT report of the abdomen and pelvis for further ch aracterization. 4. Dense atherosclerotic calcification of the coronary arteries and aortic valve with some calcificat ion of the mitral valve anulus. Collins Page MD on April 11, 2017 at 13:29 Board Certified Radiologist. This report was verified electronically.
--- NOTE | 2017-04-11 16:35 | HHI.PR ---
Subjective Remarks Patient says he is feeling all right today. Denies any chest or shortness of breath. Reports abdominal discomfort has resolved. Objective Vital Signs Date Time Temp Pulse Resp B/P (MAP) Pulse Ox O2 Delivery O2 Flow Rate FiO2 04/11/17 15:53 98.8 117 16 93/60 (71) 91 04/11/17 13:15 99.1 117 16 94/64 (74) 91 04/11/17 09:01 Room Air 04/11/17 09:01 98.4 111 16 93/63 (73) 93 04/11/17 04:00 96.7 113 22 94/61 (72) 92 Manual Cuff/Palpation 04/10/17 23:10 98.0 104 20 81/56 (64) 92 04/10/17 20:06 108 04/10/17 19:00 98.5 101 16 90/51 (64) 94 04/10/17 17:11 104/56 (72) I/O 04/10/17 04/10/17 04/10/17 04/11/17 04/11/17 04/11/17 07:00 15:00 23:00 07:00 15:00 23:00 Intake Total 2950 ml 4005 ml 1140 ml 729 ml 520 ml Output Total 100 ml Balance 2850 ml 4005 ml 1140 ml 729 ml 520 ml Intake Oral 240 ml 240 ml IV Total 2950 ml 3765 ml 900 ml 729 ml 520 ml Output Urine Total 100 ml Bladder Scan Volume Amount 165 ml # Voids 1 1 # Bowel Movements 0 1 Result Diagram: 04/11/17 0550 04/11/17 0550 Objective Remarks GENERAL: Patient sitting up in bed. Appears comfortable. SKIN: Warm and dry. HEAD: Normocephalic. EYES: No scleral icterus. No injection or drainage. NECK: Supple, trachea midline. No JVD. CARDIOVASCULAR: Regular rate and rhythm without murmurs, gallops, or rubs. RESPIRATORY: Breath sounds equal bilaterally. No accessory muscle use. GASTROINTESTINAL: Abdomen soft, non-tender, nondistended. No rebound or guarding. MUSCULOSKELETAL: No cyanosis, or edema. BACK: Nontender without obvious deformity. No CVA tenderness. A/P Assessment and Plan //Sepsis: Temp 102.5, HR 111, Source-unclear. S/p Blood Cultures, Vanc/Zosyn in ER. Follow up cultures, continue IV Abx. U/a negative, CXR w/ no acute findings, images reviewed by me. = . Patient continues with severe sepsis. Heart rate 100s. White blood cell count 111. Acute kidney injury. Creatinine 1.35. Continue broad- spectrum antibiotics. //Gram-negative bacteremia. -Gram-negative stephanie on the cultures from admission. Repeat blood cultures ordered and pending. Continue IV cefepime. Consult infectious disease. //Acute kidney injury. Creatinine 1.35. IV fluid bolus today. Start IV fluids maintenance. // Leukocytosis: WBC 85.2 on admission, previously 9.3 on 10/07/15, +bandemia, concern for underlying malignancy, Dr. Epps consulted by ER physician, recommended additional lab work and will eval in am. = 04/11. With cytosis increasing 111. Continue IV antibiotics. Hematology following. Appreciate assistance. //Liver Mass: CT Abd/Pelvis w/ possible gallbladder ca vs hepatocellular ca, images reviewed by me. Plan per oncology. Appreciate assistance. //Dehydration: GFR 64, U/a negative, IVF for hydration. // DVT Prophylaxis: SCD/Teds. Leopoldo Kelly MD Apr 11, 2017 16:35
[2017-04-11] MEDS ORDERED: methylPREDNISolone SOD SUCC 40 MG/1 ML VIAL IV PUSH ONE (17:00)
[2017-04-11] MEDS: CEFEPIME INJ 2,000 MG in SODIUM CHLORIDE 0.9% INJ 100 ML IV SCH (17:53)
[2017-04-11] MEDS ORDERED: VANCOMYCIN INJ 1,250 MG in SODIUM CHLOR 0.9% 250 ML INJ 250 ML IV SCH (18:00)
[2017-04-11] MEDS ORDERED: RESP: ALBUTEROL 2.5 MG/IPRATROPIUM 0.5 MG NEB (PRN) NEB (22:15)
[2017-04-11] MEDS: RESP: ALBUTEROL 2.5 MG/IPRATROPIUM 0.5 MG NEB (SCH) NEB (22:49)
[2017-04-12] VITALS (11 sets, daily range): BP systolic 82–97; BP diastolic 57–69; PULSE 78–120; RESP 17–20; TEMP 97.8–98.6; O2SAT 91–97
[2017-04-12] MEDS: CEFEPIME INJ 2,000 MG in SODIUM CHLORIDE 0.9% INJ 100 ML IV SCH ×2 (01:09→09:39)
[2017-04-12] MEDS: SODIUM CHLOR 0.9% 1000 ML INJ 1,000 ML IV SCH (01:10)
[2017-04-12] MEDS: RESP: ALBUTEROL 2.5 MG/IPRATROPIUM 0.5 MG NEB (SCH) NEB ×4 (03:42→22:16)
[2017-04-12 06:47] LABS: HEMATOCRIT 35.3 % (39.0-51.0); MEAN CELL VOLUME 88.9 FL (80.0-100.0); MEAN CORPUSCULAR HEMOGLOBIN 28.5 PG (27.0-34.0); MEAN CORPUSCULAR HGB CONC 32.1 % (32.0-36.0); PLATELET COUNT 323 TH/MM3 (150-450); RED BLOOD COUNT 3.97 MIL/MM3 (4.50-5.90); RED CELL DISTRIBUTION WIDTH 13.9 % (11.6-17.2); WHITE BLOOD COUNT 142.2 TH/MM3 (4.0-11.0)
[2017-04-12 06:56] LABS: HEMO FLAGS AUTO DIFF
[2017-04-12 07:02] LABS: ALKALINE PHOSPHATASE 290 U/L (45-117); ALT (GPT) 88 U/L (12-78); ANION GAP 11 MEQ/L (5-15); AST (GOT) 129 U/L (15-37); BICARBONATE 17.8 MEQ/L (21.0-32.0); BLOOD UREA NITROGEN 31 MG/DL (7-18); CHLORIDE 105 MEQ/L (98-107); GLOMERULAR FILTRATION RATE 42 ML/MIN (>89); LDH SERUM 509 U/L (87-241); POTASSIUM 4.6 MEQ/L (3.5-5.1); SODIUM (NA) 134 MEQ/L (136-145); TOTAL BILIRUBIN ADULT 0.6 MG/DL (0.2-1.0); URIC ACID 6.3 MG/DL (2.6-7.2)
[2017-04-12] MEDS: SODIUM CHLORIDE 0.9% FLUSH 10 ML FLUSH IV FLUSH SCH ×2 (09:00→21:00)
[2017-04-12] MEDS: TRIAMCINOLONE ACET 0.1% LOTION 60 ML BTL TOPICAL SCH ×3 (09:00→18:00)
[2017-04-12] MEDS: DOCUSATE SODIUM 50 MG/SENNA 8.6 MG TAB PO SCH ×2 (09:37→21:00)
[2017-04-12] MEDS: HYDROXYUREA 500 MG CAP PO SCH ×3 (09:38→17:37)
--- NOTE | 2017-04-12 10:27 | PD.CONS ---
History of Present Illness Service Infectious disease Consult Requested By Dr Sonia Kelly Reason for Consult Evaluate patient with Gram negative bacteria in Primary Care Physician Azul Jones MD Diagnoses: History of Present Illness Patient seen and examined. Records reviewed. Patient is an 86-year-old male, presented to the hospital complaining of worsening weakness, weight loss, night sweats. Patient has had frequent falls recently, and in the last week h his weakness has been relieved very pronounced. He's had for appetite, and has had weight loss of about 35. Patient also has been having initially some discomfort in the left lower quadrant, and it started becoming generalized although the intensity has not been worsening. He attributes it to constipation. He was also noted that the patient had some kind of a rash on his thigh about 2 months ago, and it progressively worsened and involved almost his whole body during that time. He was tried on topical steroids, and eventually saw a catering attendant. Markedly improved, and he received systemic steroids about 3 weeks ago. Described as red and somewhat itchy. Patient has not had any nausea but had some vomiting recently. He denies any urinary complaints. He denies any significant respiratory complaint. On presentation patient was febrile up to 102. His white count was 85,000, and it had gone up to greater than 100,000. Hematology is evaluating the patient. CT of the abdomen and pelvis showing a liver mass in the right lobe. Chest x-ray did not show any acute disease. His LFTs are also abnormal. Since his one temperature spike on his first hospital day, patient has remained afebrile. 2 blood cultures done in the emergency room is showing as growing gram-negative rods. Urinalysis is unremarkable. Infectious disease consultation has been requested to evaluate the patient. Review of Systems Constitutional: COMPLAINS OF: Fatigue, Weight loss, Change in appetite Eyes: DENIES: Eye pain Ears, nose, mouth, throat: DENIES: Nasal discharge, Oral lesions, Throat pain, Ear Pain, Running Nose Respiratory: COMPLAINS OF: Cough, DENIES: Sputum production, Shortness of breath Cardiovascular: DENIES: Chest pain, Palpitations, Syncope Gastrointestinal: COMPLAINS OF: Abdominal pain, Constipation, Nausea, Vomiting , Anorexia, DENIES: Diarrhea, Difficulty Swallowing Genitourinary: DENIES: Urinary incontinence, Urgency, Hematuria, Dysuria Musculoskeletal: DENIES: Joint pain, Stiffness Integumentary: COMPLAINS OF: Rash Immunologic/allergic: DENIES: Urticaria Neurologic: DENIES: Headache, Localized weakness Psychiatric: DENIES: Hallucinations Past Family Social History Allergies: Coded Allergies: prednisone (Unverified Adverse Reaction, Intermediate, ELEVATED BLOOD GLUCOSE, 04/09/17) Past Medical History Hypertension CAD COPD Hyperlipidemia Previous episode of prostatitis BPH Past Surgical History Cataract Surgery Lens Implant TURP Reported Medications I attest that I obtained, updated or reviewed the home and current medications. Reported Meds & Active Scripts Active Triamcinolone Topical (Triamcinolone Acetonide) 0.1% Lotn 1 Applic TOPICAL TID Reported Aspir-Low (Aspirin) 81 Mg Tabdr Nitrostat SL (Nitroglycerin) 0.4 Mg Subl 0.4 Mg SL DIRECTED PRN 1 tablet under the tongue as needed for chest pain. Repeat every 5 minutes for a total of 3 DOSES or call 911 if NO relief. Omeprazole 20 Mg Tab 20 Mg PO DAILY Calcium 600 with Vitamin D (Calcium Carbonate-Cholecalciferol) 600-400 mg-Unit Tab 1 Tab PO DAILY Active Ordered Medications Current Medications Medications (Trade) Dose Ordered Sig/Tyler Route Start Time Stop Time Status Last Admin Pharmacy Profile Note 0 ml @ 0 mls/hr UNSCH OTHER 04/10/17 00:15 Sodium Chloride 1,000 ml @ 100 mls/hr Q10H IV 04/10/17 00:13 04/12/17 01:10 (NS Flush) 2 ml UNSCH PRN IV FLUSH 04/10/17 00:15 (NS Flush) 2 ml BID IV FLUSH 04/10/17 09:00 04/11/17 09:28 (Zofran Inj) 4 mg Q6H PRN IVP 04/10/17 00:15 04/11/17 14:55 (Tylenol) 650 mg Q6H PRN PO 04/10/17 00:15 04/10/17 17:18 ([place] 5-325 Mg) 1 tab Q4H PRN PO 04/10/17 00:15 (Morphine Inj) 2 mg Q3H PRN IV PUSH 04/10/17 00:15 (Marry-Colace) 1 tab BID PO 04/10/17 09:00 04/12/17 09:37 (Milk Of Magnesia Liq) 30 ml Q12H PRN PO 04/10/17 00:15 (Senokot) 17.2 mg Q12H PRN PO 04/10/17 00:15 (Dulcolax Supp) 10 mg DAILY PRN RECTAL 04/10/17 00:15 (Lactulose Liq) 30 ml DAILY PRN PO 04/10/17 00:15 (Kenalog 0.1% Lotion) 1 applic TID TOPICAL 04/10/17 09:00 04/12/17 09:00 Miscellaneous Information SPECIFIC LAB TO BE DRAWN:VANCO TROUGH DATE TO BE DR... ONCE ONCE .XX 04/12/17 17:45 04/12/17 17:46 Cefepime HCl 2000 mg/Sodium Chloride 100 ml @ 200 mls/hr Q8H IV 04/11/17 17:00 04/12/17 09:39 Vancomycin HCl 1250 mg/Sodium Chloride 262.5 ml @ 250 mls/hr Q24H IV 04/11/17 18:00 04/11/17 20:24 (Duoneb Neb) 1 ampule Q6HR NEB NEB 04/11/17 22:30 04/12/17 08:43 (Duoneb Neb) 1 ampule Q2HR NEB PRN NEB 04/11/17 22:15 (Hydrea) 500 mg TID PO 04/12/17 09:00 04/12/17 09:38 Family History Unremarkable Social History No smoking No alcohol abuse No illicit drugs Physical Exam Vital Signs Vital Signs Date Time Temp Pulse Resp B/P (MAP) Pulse Ox O2 Delivery O2 Flow Rate FiO2 04/12/17 08:46 91 Nasal Cannula 3.00 04/12/17 08:14 97.8 111 19 82/58 (66) 96 04/12/17 04:00 98.6 115 18 88/62 (71) 92 04/12/17 00:00 98.5 117 18 96/69 (78) 95 04/11/17 23:02 101/71 (81) 04/11/17 21:03 92 Nasal Cannula 3.00 04/11/17 21:00 92 Nasal Cannula 3.00 04/11/17 20:00 87 Room Air 04/11/17 20:00 121 04/11/17 20:00 98.3 121 18 92/68 (76) 87 04/11/17 15:53 98.8 117 16 93/60 (71) 91 04/11/17 13:15 99.1 117 16 94/64 (31) 99 Physical Exam GENERAL: Patient is a well-nourished, well-developed male, awake and alert, not in respiratory distress. SKIN: Warm and dry. No generalized rash, no ecchymoses and no evidence of embolic lesions. HEAD: Atraumatic. Normocephalic. No temporal wasting, or tenderness. EYES: [place] conjunctiva. No petechia or hemorrhage. Pupils equal, round and reactive to light. Extraocular movements full and intact. No scleral icterus. No injection or drainage. EARS, NOSE AND THROAT: Nose without bleeding or purulent nasal discharge. No sinus tenderness. Mucous membranes pink and moist. No oral lesions noted. No exudate. No oral thrush. NECK: Trachea midline. Supple and not tender, no meningeal signs CARDIOVASCULAR: Regular rate and rhythm. No murmurs, rubs or gallops heard RESPIRATORY: Clear to auscultation. Breath sounds equal bilaterally. No rales , wheezing or rhonchi ABDOMEN: Soft, nondistended, mild tenderness in RUQ, no guarding or rebound. Bowel sounds present and normoactive. No guarding. No rebound. No organomegaly. EXTREMITIES: No clubbing, cyanosis. Has mild pedal edema. No joint effusion , has good ROM. No calf tenderness. Well perfused and warm. NEUROLOGICAL: Awake and alert. Cranial nerves grossly intact. Motor grossly within normal limits. PSYCHIATRIC: Normal affect, calm and cooperative. LINE: No evidence of infection Laboratory Laboratory Tests Test 04/12/17 06:00 White Blood Count 142.2 Red Blood Count 3.97 Hemoglobin 11.3 Hematocrit 35.3 Mean Corpuscular Volume 88.9 Mean Corpuscular Hemoglobin 28.5 Mean Corpuscular Hemoglobin Concent 32.1 Red Cell Distribution Width 13.9 Platelet Count 323 Mean Platelet Volume 7.4 CBC Comment AUTO DIFF Blood Smear Pathologist Review Blood Urea Nitrogen 31 Creatinine 1.57 Random Glucose 140 Total Protein 5.3 Albumin 2.0 Calcium Level 9.5 Uric Acid 6.3 Alkaline Phosphatase 290 Aspartate Amino Transf (AST/SGOT) 129 Alanine Aminotransferase (ALT/SGPT) 88 Lactate Dehydrogenase 509 Total Bilirubin 0.6 Sodium Level 134 Potassium Level 4.6 Chloride Level 105 Carbon Dioxide Level 17.8 Anion Gap 11 Estimat Glomerular Filtration Rate 42 Tumor Marker Alpha Fetoprotein 1.9 Carcinoembryonic Antigen 0.8 CA 19-9 Antigen 23.6 Prostate Specific Antigen 3.01 Date/Time Source Procedure Growth Status 04/11/17 17:37 Blood Peripheral Aerobic Blood Culture Pending Received 04/11/17 17:37 Blood Peripheral Anaerobic Blood Culture Pending Received 04/09/17 21:42 Nasal Washing Influenza Types A,B Antigen (MARK) - Final NEGATIVE FOR FLU A AND B ANTIGEN.... Complete Result Diagram: 04/12/17 0600 04/12/17 0600 Imaging RADIOLOGY STUDIES/FILMS REVIEWED Chest CT 04/11/17 0000 Signed Impressions: Service Date/Time: Tuesday, April 11, 2017 13:07 - CONCLUSION: 1. Moderate right and small left pleural effusion with concomitant bibasilar atelectatic changes. 2. In addition, there is patchy airspace disease in the right perihilar distribution. This may represent focal pulmonary edema although early infiltrate cannot be excluded. 3. 2.6 cm mass lesion pedunculated off the posterior aspect of the right hepatic lobe with a faint hypodensity in the left hepatic lobe. Please see the CT report of the abdomen and pelvis for further characterization. 4. Dense atherosclerotic calcification of the coronary arteries and aortic valve with some calcification of the mitral valve anulus. Collins Page MD Chest X-Ray 04/09/172110 Signed Impressions: Service Date/Time: Sunday, April 09, 2017 21:28 - CONCLUSION: No acute disease. Morgan Patterson Jr., MD Abdomen/Pelvis CT 04/09/17 0000 Signed Impressions: Service Date/Time: Sunday, April 09, 2017 23:05 - CONCLUSION: 1. 9 cm mass in the right lobe liver which may reflect gallbladder carcinoma or hepatocellular carcinoma. This would be accessible to percutaneous biopsy. 2. Mild ascites Raul Rodarte MD Assessment and Plan Assessment and Plan IMPRESSION SEpsis, on admission, has GNR in BC, likely source is biliary tree R lobe liver mass Severe leukocytosis, no blast seen, mostly neutrophils Renal insufficiency Hx BPH RECOMMENDATION Follow repeat BC Change Abx to Zosyn Hematology evaluating patient's leukocytosis and liver mass Follow temps Monitor progress I will follow along with you Thank you for this consultation Discussed Condition With Discussed plan with patient and family Nicki Almanza MD Apr 12, 2017 10:27
[2017-04-12 10:56] LABS: BANDS 25 % (0-6); NEUTROPHIL # MANUAL DIFF 142.2 TH/MM3 (1.8-7.7); POLYS (SEG NEUTROPHILS) 75 % (16-70); TOXIC GRANULATION 1+ (NORMAL); WBC DIFF SAMPLE 200
[2017-04-12 10:57] LABS: ACANTHOCYTES OCC (NORMAL); PLATELET ESTIMATE SMEAR NORMAL (NORMAL); PLATELET MORPHOLOGY NORMAL (NORMAL); SCAN/DIFF FINAL DIFF MANUAL
[2017-04-12 11:30] LABS: APTT (PATIENT) 31.2 SEC (24.3-30.1); INTERNATIONAL NORMALIZED RATIO 1.1 RATIO; PROTHROMBIN TIME - PATIENT 11.8 SEC (9.8-11.6)
--- NOTE | 2017-04-12 12:11 | PD.ONC.PN ---
Subjective Subjective Remarks Afebrile overnight. Patient resting in room with family at bedside. Slept ok last night. continues to feel short of breath. Objective Data Date Time Temp Pulse Resp B/P (MAP) Pulse Ox O2 Delivery O2 Flow Rate FiO2 04/12/17 08:46 91 Nasal Cannula 3.00 04/12/17 08:14 97.8 111 19 82/58 (66) 96 04/12/17 04:00 98.6 115 18 88/62 (71) 92 04/12/17 00:00 98.5 117 18 96/69 (78) 95 04/11/17 23:02 101/71 (81) 04/11/17 21:03 92 Nasal Cannula 3.00 04/11/17 21:00 92 Nasal Cannula 3.00 04/11/17 20:00 87 Room Air 04/11/17 20:00 121 04/11/17 20:00 98.3 121 18 92/68 (76) 87 04/11/17 15:53 98.8 117 16 93/60 (71) 91 04/11/17 13:15 99.1 117 16 94/64 (74) 91 04/12/17 04/12/17 04/12/17 07:00 15:00 23:00 Intake Total 1680 ml Output Total 1 ml Balance 1679 ml Result Diagram: 04/12/17 0600 04/12/17 0600 Laboratory Results Laboratory Tests Test 04/12/17 06:00 04/12/17 10:49 White Blood Count 142.2 TH/MM3 Red Blood Count 3.97 MIL/MM3 Hemoglobin 11.3 GM/DL Hematocrit 35.3 % Mean Corpuscular Volume 88.9 FL Mean Corpuscular Hemoglobin 28.5 PG Mean Corpuscular Hemoglobin Concent 32.1 % Red Cell Distribution Width 13.9 % Platelet Count 323 TH/MM3 Mean Platelet Volume 7.4 FL CBC Comment AUTO DIFF Differential Total Cells Counted 200 Neutrophils % (Manual) 75 % Band Neutrophils % 25 % Monocytes % 1 % Neutrophils # (Manual) 142.2 TH/MM3 Differential Comment FINAL DIFF MANUAL Toxic Granulation 1+ Platelet Estimate NORMAL Platelet Morphology Comment NORMAL Acanthocytes OCC Blood Smear Pathologist Review Blood Urea Nitrogen 31 MG/DL Creatinine 1.57 MG/DL Random Glucose 140 MG/DL Total Protein 5.3 GM/DL Albumin 2.0 GM/DL Calcium Level 9.5 MG/DL Uric Acid 6.3 MG/DL Alkaline Phosphatase 290 U/L Aspartate Amino Transf (AST/SGOT) 129 U/L Alanine Aminotransferase (ALT/SGPT) 88 U/L Lactate Dehydrogenase 509 U/L Total Bilirubin 0.6 MG/DL Sodium Level 134 MEQ/L Potassium Level 4.6 MEQ/L Chloride Level 105 MEQ/L Carbon Dioxide Level 17.8 MEQ/L Anion Gap 11 MEQ/L Estimat Glomerular Filtration Rate 42 ML/MIN Tumor Marker Alpha Fetoprotein 1.9 NG/ML Carcinoembryonic Antigen 0.8 NG/ML CA 19-9 Antigen 23.6 U/ML Prostate Specific Antigen 3.01 NG/ML Prothrombin Time 11.8 SEC Prothromb Time International Ratio 1.1 RATIO Activated Partial Thromboplast Time 31.2 SEC Culture Results Microbiology Date/Time Source Procedure Growth Status 04/11/17 17:37 Blood Peripheral Aerobic Blood Culture - Preliminary NO GROWTH IN 1 DAY Resulted 04/11/17 17:37 Blood Peripheral Anaerobic Blood Culture - Preliminary NO GROWTH IN 1 DAY Resulted 04/11/17 17:32 Blood Peripheral Aerobic Blood Culture - Preliminary NO GROWTH IN 1 DAY Resulted 04/11/17 17:32 Blood Peripheral Anaerobic Blood Culture - Preliminary NO GROWTH IN 1 DAY Resulted 04/09/17 21:30 Blood Peripheral Aerobic Blood Culture - Preliminary NO GROWTH IN 3 DAYS Resulted 04/09/17 21:30 Anaerobic Blood Culture - Preliminary Gram Negative Mario Resulted 04/09/17 21:20 Blood Peripheral Aerobic Blood Culture - Preliminary NO GROWTH IN 2 DAYS Resulted 04/09/17 21:20 Anaerobic Blood Culture - Preliminary Gram Negative Mario Resulted 04/09/17 21:42 Nasal Washing Influenza Types A,B Antigen (MARK) - Final NEGATIVE FOR FLU A AND B ANTIGEN.... Complete Administered Medications Medications (Trade) Dose Ordered Sig/Tyler Route PRN Reason Start Time Stop Time Status Last Admin Dose Admin Sodium Chloride 1,000 ml @ 100 mls/hr Q10H IV 04/10/17 00:13 04/12/17 01:10 Sodium Chloride (NS Flush) 2 ml BID IV FLUSH 04/10/17 09:00 04/11/17 09:28 Ondansetron HCl (Zofran Inj) 4 mg Q6H PRN IVP NAUSEA OR VOMITING 04/10/17 00:15 04/11/17 14:55 Acetaminophen (Tylenol) 650 mg Q6H PRN PO FEVER/PAIN SCALE 1 TO 2 04/10/17 00:15 04/10/17 17:18 Senna/Docusate Sodium (Marry-Colace) 1 tab BID PO 04/10/17 09:00 04/12/17 09:37 Triamcinolone Acetonide (Kenalog 0.1% Lotion) 1 applic TID TOPICAL 04/10/17 09:00 04/12/17 09:00 Albuterol/ Ipratropium (Duoneb Neb) 1 ampule Q6HR NEB NEB 04/11/17 22:30 04/12/17 08:43 Hydroxyurea (Hydrea) 500 mg TID PO 04/12/17 09:00 04/12/17 09:38 Objective Remarks GENERAL: Pleasant elderly male sitting up in bed, on 3L O2 via NC SKIN: Warm and dry. HEAD: Normocephalic. EYES: No injection or drainage. NECK: Supple, trachea midline. CARDIOVASCULAR: +S1/S2, tachy RESPIRATORY: diminished at bases, anterior simpson clear. GASTROINTESTINAL: Abdomen soft, non-tender, nondistended. EXTREMITIES: No cyanosis NEUROLOGICAL: awake and alert, normal speech. Assessment/Plan Problem List: (1) Liver mass ICD Codes: R16.0 - Hepatomegaly, not elsewhere classified Status: Acute Plan: --Liver mass --CT guided biopsy when bone marrow biopsy is completed --AFP, CEA, 19-9 all WNL --CT chest did not show masses/LAD//possible pneumonia --CT ab showed 9-cm mass in the right lobe of the liver concerning for metastatic carcinoma. (2) Leukocytosis ICD Codes: D72.829 - Elevated white blood cell count, unspecified Plan: --started on Hydrea on 04/12 d/t need for cytoreduction, worsening leukocytosis. --peripheral smear did not show any obvious blast cells --concern for underlying lymphoma, leukemia, MDS, MPN or another malignancy --Bone marrow biopsy 04/12 --check daily LDH, Uric acid, Mag and Phosp to monitor for TLS (3) Sepsis ICD Codes: A41.9 - Sepsis, unspecified organism Plan: --Gram-negative bacteremia and sepsis. --on Zosyn --ID following (4) Dyspnea ICD Codes: R06.00 - Dyspnea, unspecified Plan: --due to COPD/pneumonia/leukostasis (5) Dermatitis ICD Codes: L30.9 - Dermatitis, unspecified (6) COPD (chronic obstructive pulmonary disease) ICD Codes: J44.9 - Chronic obstructive pulmonary disease Status: Acute (7) Pneumonia, community acquired ICD Codes: J18.9 - Community acquired pneumonia Status: Acute Assessment 86-year-old male with a history of hypertension, hyperlipidemia, coronary artery disease who presents to the emergency department with a 6-month history of loss of appetite, weight loss of 30 pounds and night sweats. Vanessa Cervantes, patient's daughter is only living relative and is decision maker. Patient is not and has no other living children. Please call Vanessa with updates: [phone] Plan The exam, history, and the medical decision-making described in the above note were completed with the assistance of the mid-level provider. I reviewed and agree with the findings presented. I attest that I had a [id number] encounter with the patient on the same day, and personally performed and documented my assessment and findings in the medical record Case reviewed with Pathology Dr. Brandt--based on peripheral smear does not appear to be acute leukemia Leukocytosis worsening///? Chronic leukemia/MDS/MPN Hydrea dose increased Will consider Leukophoresis tomorrow if experiences dyspnea again will need Vascath Bone marrow biopsy could not be completed due to hypotension--re-attempt tomorrow if unable to do BM bx tomorrow--will send peripheral blood flow cytometry check daily coag panel/dic labs daily urinc acid d/w rn o/n events reviewed Problem Qualifiers (1) Dyspnea: Qualified Codes: R06.02 - Shortness of breath Anamaria Islas Apr 12, 2017 12:11 Godwin Epps MD Apr 13, 2017 00:53
[2017-04-12] MEDS ORDERED: ALBUMIN 25% INJ 100 ML IV ONE ×2 (12:30→22:00)
[2017-04-12] MEDS ORDERED: SODIUM BICARBONATE 650 MG TAB PO ONE (12:45)
[2017-04-12] MEDS: PIPERACIL-TAZO 3.375 GM PREMIX 50 ML IV SCH ×2 (12:46→17:37)
--- NOTE | 2017-04-12 13:05 | HHI.PR ---
Subjective Remarks He shouldn't lying down talking with family in room. He does report right upper quadrant intermittent pain continues. Denies any nausea or vomiting. He does report fatigue, worsening shortness of breath. Objective Vital Signs Date Time Temp Pulse Resp B/P (MAP) Pulse Ox O2 Delivery O2 Flow Rate FiO2 04/12/17 08:46 91 Nasal Cannula 3.00 04/12/17 08:14 97.8 111 19 82/58 (66) 96 04/12/17 04:00 98.6 115 18 88/62 (71) 92 04/12/17 00:00 98.5 117 18 96/69 (78) 95 04/11/17 23:02 101/71 (81) 04/11/17 21:03 92 Nasal Cannula 3.00 04/11/17 21:00 92 Nasal Cannula 3.00 04/11/17 20:00 87 Room Air 04/11/17 20:00 121 04/11/17 20:00 98.3 121 18 92/68 (76) 87 04/11/17 15:53 98.8 117 16 93/60 (71) 91 04/11/17 13:15 99.1 117 16 94/64 (74) 91 I/O 04/11/17 04/11/17 04/11/17 04/12/17 04/12/17 04/12/17 06:59 14:59 22:59 06:59 14:59 22:59 Intake Total 1140 ml 729 ml 1206 ml 1680 ml Output Total 1 ml Balance 1140 ml 729 ml 1206 ml 1679 ml Intake Oral 240 ml 480 ml 480 ml IV Total 900 ml 729 ml 726 ml 1200 ml Stool Total 1 ml # Voids 1 2 2 1 # Bowel Movements 1 1 1 Result Diagram: 04/12/17 0600 04/12/17 0600 Objective Remarks GENERAL: Patient owing in bed speaking with family. Appears comfortable. SKIN: Warm and dry. HEAD: Normocephalic. EYES: No scleral icterus. No injection or drainage. NECK: Supple, trachea midline. No JVD. CARDIOVASCULAR: Regular rate and rhythm without murmurs, gallops, or rubs. RESPIRATORY: Breath sounds equal bilaterally. No accessory muscle use. GASTROINTESTINAL: Abdomen soft, non-tender, nondistended. No rebound or guarding. MUSCULOSKELETAL: No cyanosis, or edema. BACK: Nontender without obvious deformity. No CVA tenderness. A/P Assessment and Plan Patient came in with profound leukocytosis, for which hematology was consulted, bone marrow biopsy pending. Patient is also being treated for sepsis with gram- negative bacteremia from admission. No definite infection source, however patient does have liver mass, right sided pleural effusion. Infectious disease following. Appreciate assistance. //Possible Severe Sepsis with septic shock: Temp 102.5, HR 111, Source- unclear. S/p Blood Cultures, Vanc/Zosyn in ER. Follow up cultures, continue IV Abx. U/a negative, CXR w/ no acute findings, images reviewed by me. = . Patient continues with severe sepsis. Heart rate 100s. White blood cell count 111. Acute kidney injury. Creatinine 1.35. Continue broad- spectrum antibiotics. = 04/12. White count continues worsening 142.2 today. Worsening acute kidney injury, bicarbonate now 17.8. Zosyn added by infectious disease. //Possible right lung empyema. CT chest with right sided pleural effusion. Patient does report right upper quadrant pain. Together with pain, could be empyema. Thoracentesis ordered and pending. //Anabolic acidosis. Bicarbonate 17.8. Order ABG to characterize. //Gram-negative bacteremia. -Gram-negative stephanie on the cultures from admission. Repeat blood cultures ordered and pending. Continue IV cefepime. Consult infectious disease. = 04/12. Add Zosyn as per infectious disease. Repeat cultures from 04/11 negative. Follow-up sensitivities from admission. //Acute kidney injury. -04/12 Creatinine 1.57 from normal on admission. Albumin bolus today, increased maintenance fluids. Check ultrasound, repeat urinalysis. // Leukocytosis: WBC 85.2 on admission, previously 9.3 on 10/07/15, +bandemia, concern for underlying malignancy, Dr. Epps consulted by ER physician, recommended additional lab work and will eval in am. = 04/11. With cytosis increasing 111. Continue IV antibiotics. Hematology following. Appreciate assistance. = 04/12. Leukocytosis worsening 142 today. Bone marrow biopsy per oncology. On hydroxyurea. Appreciate assistance. //Liver Mass: CT Abd/Pelvis w/ possible gallbladder ca vs hepatocellular ca, images reviewed by me. Plan per oncology. Appreciate assistance. //Dehydration: GFR 64, U/a negative, IVF for hydration. // DVT Prophylaxis: SCD/Teds. Discharge Planning Continued workup for sepsis, profound leukocytosis. Leopoldo Kelly MD Apr 12, 2017 13:05
[2017-04-12] MEDS ORDERED: LIDOCAINE 1%/EPINEPHrine 1:100,000 SOLN 20 ML VIAL ONE (13:07)
--- NOTE | 2017-04-12 13:54 | RADRPT ---
EXAM DATE/TIME: 04/12/2017 13:05 [facility] COMPARISON: CHEST SINGLE AP, April 09, 2017, 21:28. INDICATIONS : Post thoracentesis. MEDICAL HISTORY : Chronic obstructive pulmonary disease. Gastroesophageal reflux disease. Myocardial infarction.Hyperte nsion. Skin cancer. SURGICAL HISTORY : None. ENCOUNTER: Subsequent ACUITY: 3 days PAIN SCORE: 0/10 LOCATION: Bilateral chest FINDINGS: A single portable frontal view the chest shows no pneumothorax. Worsening consolidation within both l samuel bases. Tiny bilateral pleural effusions. Heart is normal in size. Bony structures are unremarkabl e. CONCLUSION: 1. No pneumothorax. 2. Worsening bibasilar consolidations. 3. Tiny effusions. Morgan Patterson Jr., MD on April 12, 2017 at 13:49 Board Certified Radiologist. This report was verified electronically.
--- NOTE | 2017-04-12 14:54 | RADRPT ---
EXAM DATE/TIME: 04/11/2017 00:00 [facility] COMPARISON: No previous studies available for comparison. INDICATIONS : Leukocytosis. SEDATION TIME: minutes BIOPSY SITE: MEDICATION(S): 1.) none given MEDICAL HISTORY : Hypertension. Chronic obstructive pulmonary disease. Myocardial infarction. L5 fracture PROCEDURE: 1. none performed FINDINGS: The patient was brought to the CT department in preparation for bone marrow biopsy. The patient was p laced in the prone position on the CT table. He denied any pain but became diaphoretic and short of b reath and his blood pressure dropped somewhat. He remained hemodynamically stable. Oxygen saturation was in the lower 90 percentile range. It was felt that he was not a good candidate for sedation at is point. The procedure was terminated. CONCLUSION: Procedure was not performed as the patient became diaphoretic and short of breath. The patient was se nt immediately back to the unit. Morgan Patterson Jr., MD on April 12, 2017 at 14:46 Board Certified Radiologist. This report was verified electronically.
--- NOTE | 2017-04-12 16:30 | RADRPT ---
EXAM DATE/TIME: 04/12/2017 13:22 [facility] COMPARISON: No previous studies available for comparison. INDICATIONS : Increased BUN/creatinine. MEDICAL HISTORY : Myocardial infarction. Hypercholesterolemia. Rheumatoid arthritis. Glaucoma. Peripheral neuropathy. D izziness. Chest pain. HTN. COPD. Sleep apnea. Esophageal stricture/dilation. Acid reflux. Enlarged pr ostate. Arthritis. Skin cancer. SURGICAL HISTORY : Cataract extraction bilaterally with lens implants. Laser surgery, right eye. TURP. Right wrist benig n tumor removed. Excision skin lesion. Blood transfusions. ENCOUNTER: Initial ACUITY: 1 day PAIN SCORE: 0/10 LOCATION: Bilateral flank MEASUREMENTS: RIGHT KIDNEY: 10.9 x 5.7 x 4.6 cm LEFT KIDNEY: 11.9 x 4.9 x 4.9 cm FINDINGS: RIGHT KIDNEY: Small somewhat echogenic kidney without nephrosis. LEFT KIDNEY: Mildly echogenic cortex with small renal cyst BLADDER: Within normal limits given the degree of distension. Prominent prostate CONCLUSION: Somewhat small kidneys, right echogenic. Negative for hydronephrosis. Tony Pena MD FACR on April 12, 2017 at 16:10 Board Certified Radiologist. This report was verified electronically.
[2017-04-12 16:41] LABS: BLOOD GAS BASE EXCESS -9.8 mmol/L (-2-2); BLOOD GAS CARBOXYHEMOGLOBIN 0.7 % (0-4); BLOOD GAS HCO3 16 mmol/L (22-26); BLOOD GAS METHEMOGLOBIN 1.4 % (0-2); BLOOD GAS O2 HGB SATURATION 90 % (90-100); BLOOD GAS PCO2 33 mmHg (38-42); BLOOD GAS PO2 72 mmHg (61-120); TEMP CORR TO 98.6
[2017-04-12 16:42] LABS: CRITICAL VALUE YES; DRAW SITE LT RADIAL; LITER FLOW 4 L/M; NUMBER OF ARTERIAL PUNCTURES 1; OXYGEN DEVICE NASAL CANNULA; STAT NO
[2017-04-12] MEDS ORDERED: PHARMACY ORDERED LAB ONE (17:45)
[2017-04-12] MEDS ORDERED: SODIUM CHLORID 0.9% 500 ML INJ 500 ML IV ONE (20:45)
[2017-04-12] MEDS ORDERED: SODIUM CHLOR 0.9% 1000 ML INJ 1,000 ML IV SCH (21:37)
[2017-04-12] MEDS ORDERED: CHLORHEXIDINE GLUCONATE 2 % 1 PACK (2 CLOTHS) TOP PRN (21:45)
[2017-04-12] MEDS ORDERED: MAGNESIUM HYDROXIDE SUSP 30 ML CUP PO PRN (21:45)
[2017-04-12] MEDS ORDERED: MISCELLANEOUS NURSING INFORMATION XX SCH (21:45)
[2017-04-12] MEDS ORDERED: SODIUM CHLORIDE 0.9% FLUSH 10 ML FLUSH IV FLUSH PRN (21:45)
[2017-04-12] MEDS ORDERED: LACTULOSE SYRUP 20 GM/30 ML CUP PO PRN (21:45)
[2017-04-12] MEDS ORDERED: BISACODYL 10 MG SUPP RECTAL PRN (21:45)
[2017-04-12] MEDS ORDERED: RESP: ALBUTEROL 2.5 MG/3 ML NEB (PRN) INH (21:45)
[2017-04-12] MEDS ORDERED: SENNOSIDES 8.6 MG TAB PO PRN (21:45)
[2017-04-12] MEDS ORDERED: ACETAMINOPHEN 325 MG TAB PO PRN (21:45)
[2017-04-12] MEDS ORDERED: ONDANSETRON HCL 4 MG/2 ML VIAL IV PUSH PRN (21:45)
--- NOTE | 2017-04-12 21:46 | PD.CONS ---
[facility] Service Critical Care Medicine Consult Requested By Gaudencio Ferrell APRN Reason for Consult Sepsis Primary Care Physician Azul Jones MD History of Present Illness This is a 86-year-old male. Date of admission 04/10/2017. Date of consultation 04/12/2017. Past medical history includes coronary disease, hypertension, dyslipidemia, COPD, arthritis, PRO on CPAP at night, BPH, gastroesophageal reflux disease and glaucoma. Patient originally presented to [place] ED with chief complaint of generalized weakness and recurrent falls for several weeks duration worse on day of admission.. Positive for fever chills and night sweats. Hemodynamically stable. On admission, abnormal laboratory included elevated white cells of 85.2, previously 9.3 on 10/07/15. Bands 22%. Acute kidney injury, elevated lactate and elevated LFTs. 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 isaacs hematology was consulted for possible bone marrow biopsy/ coronary need biopsy of liver/gallbladder mass. Blood cultures 2 were drawn on that day as well. They're currently going Klebsiella pneumonia. She has been on piperacillin/tazobactam which is been continued by Dr. Almanza/infectious disease in consultation. CT abdomen/pelvis again revealed a 9 mm right lobe liver mass. Gallbladder versus paracytic or in the differential. CT thorax revealed bilateral pleural effusions 2.6 mass the right head of liver. Renal ultrasound revealed right echogenic kidneys. AFP, CEA and CA 19/9 normal. LDH elevated. Uric acid around 3. Today, patient has had borderline blood pressures and was transferred to the intensive care unit. Likely is currently 3.7. Patient is tachycardic with a mutual pressure greater than 65. Creatinine slightly rising long white blood cells. Patient did not receive bone marrow or liver biopsy due to shortness of breath. Patient received 15 L in with inaccurate outputs document. Review of Systems Constitutional: COMPLAINS OF: Fatigue, Weight gain, DENIES: Fever, Weight loss , Chills, Dizziness Endocrine: DENIES: Polydipsia, Polyuria Eyes: DENIES: Blurred vision Respiratory: COMPLAINS OF: Apneas, Shortness of breath, DENIES: Cough, Hemoptysis, Sputum production Cardiovascular: DENIES: Chest pain Gastrointestinal: DENIES: Abdominal pain, Diarrhea, Nausea, Vomiting Genitourinary: COMPLAINS OF: Urgency, DENIES: Hematuria Musculoskeletal: COMPLAINS OF: Joint pain Integumentary: DENIES: Abnormal pigmentation Hematologic/lymphatic: DENIES: Bruising Immunologic/allergic: DENIES: Eczema Neurologic: DENIES: Abnormal gait, Headache Psychiatric: COMPLAINS OF: Anxiety, DENIES: Confusion, Depression Past Family Social History Allergies: Coded Allergies: prednisone (Unverified Adverse Reaction, Intermediate, ELEVATED BLOOD GLUCOSE, 04/09/17) Past Medical History Arthritis PRO on CPAP Hypertension Dyslipidemia Coronary artery disease BPH Gastroesophageal disease Glaucoma COPD Chewing tobacco use Past Surgical History Cataract with IOC TURP 3 Right wrist Esophageal dilatation Stress test Colonoscopy Reported Medications Nitroglycerin 0.4 mg sublingual every 5 minutes when necessary Aspirin 81 mg by mouth daily Triamcinolone cream 0.1% applied to affected area Omeprazole 20 mg by mouth daily Calcium vitamin D 600mg/400 milligrams 1 tablet daily Active Ordered Medications Reviewed in EMR Family History Mother and father both from [place]. Social History Tobaccoism noted. Currently uses chewing tobacco. Occasional alcohol use. No IV drug use. Physical Exam Vital Signs Vital Signs Date Time Temp Pulse Resp B/P (MAP) Pulse Ox O2 Delivery O2 Flow Rate FiO2 04/12/17 17:06 98.4 118 20 87/60 (69) 95 04/12/17 13:00 78 17 94/57 (69) 97 04/12/17 08:46 91 Nasal Cannula 3.00 04/12/17 08:14 97.8 111 19 82/58 (66) 96 04/12/17 04:00 98.6 115 18 88/62 (71) 92 04/12/17 00:00 98.5 117 18 96/69 (78) 95 04/11/17 23:02 101/71 (81) Physical Exam GENERAL: 86-year-old male, resting in bed in no acute distress SKIN: Warm and dry. HEAD: Atraumatic. Normocephalic. EYES: Pupils equal and round. No scleral icterus. No injection or drainage. ENT: No nasal bleeding or discharge. Mucous membranes pink and moist. NECK: Trachea midline. No JVD. CARDIOVASCULAR: Tachycardia, RR. S1, S2 withoutmurmur RESPIRATORY: Diminished breath sounds. Few crackles in bases bilaterally. No wheeze.. Breath sounds equal bilaterally. GASTROINTESTINAL: Abdomen soft, sightly protuberant. Nontender. Hypoactive bowel sounds appreciated. MUSCULOSKELETAL: Extremities 1+ below the knee bilateral lower extremity edema. No obvious deformities. NEUROLOGICAL: Awake and alert. No obvious cranial nerve deficits. Motor grossly within normal limits. Five out of 5 muscle strength in the arms and legs. Normal speech. PSYCHIATRIC: Appropriate mood and affect; insight and judgment normal. Laboratory Laboratory Tests Test 04/12/17 06:00 04/12/17 10:49 04/12/17 16:33 04/12/17 19:58 White Blood Count 142.2 Red Blood Count 3.97 Hemoglobin 11.3 Hematocrit 35.3 Mean Corpuscular Volume 88.9 Mean Corpuscular Hemoglobin 28.5 Mean Corpuscular Hemoglobin Concent 32.1 Red Cell Distribution Width 13.9 Platelet Count 323 Mean Platelet Volume 7.4 CBC Comment AUTO DIFF Differential Total Cells Counted 200 Neutrophils % (Manual) 75 Band Neutrophils % 25 Monocytes % 1 Neutrophils # (Manual) 142.2 Differential Comment FINAL DIFF MANUAL Toxic Granulation 1+ Platelet Estimate NORMAL Platelet Morphology Comment NORMAL Acanthocytes OCC Blood Smear Pathologist Review Blood Urea Nitrogen 31 Creatinine 1.57 Random Glucose 140 Total Protein 5.3 Albumin 2.0 Calcium Level 9.5 Uric Acid 6.3 6.7 Alkaline Phosphatase 290 Aspartate Amino Transf (AST/SGOT) 129 Alanine Aminotransferase (ALT/SGPT) 88 Lactate Dehydrogenase 509 Total Bilirubin 0.6 Sodium Level 134 Potassium Level 4.6 Chloride Level 105 Carbon Dioxide Level 17.8 Anion Gap 11 Estimat Glomerular Filtration Rate 42 Tumor Marker Alpha Fetoprotein 1.9 Carcinoembryonic Antigen 0.8 CA 19-9 Antigen 23.6 Prostate Specific Antigen 3.01 Prothrombin Time 11.8 Prothromb Time International Ratio 1.1 Activated Partial Thromboplast Time 31.2 Blood Gas Puncture Site LT RADIAL Blood Gas Patient Temperature 98.6 Blood Gas HCO3 16 Blood Gas Base Excess -9.8 Blood Gas Oxygen Saturation 90 Arterial Blood pH 7.29 Arterial Blood Partial Pressure CO2 33 Arterial Blood Partial Pressure O2 72 Arterial Blood Oxygen Content 14.0 Arterial Blood Carboxyhemoglobin 0.7 Arterial Blood Methemoglobin 1.4 Blood Gas Hemoglobin 11.0 Oxygen Delivery Device NASAL CANNULA Blood Gas Liter Flow 4 Lactic Acid Level 3.7 Date/Time Source Procedure Growth Status 04/11/17 17:37 Blood Peripheral Aerobic Blood Culture - Preliminary NO GROWTH IN 1 DAY Resulted 04/11/17 17:37 Blood Peripheral Anaerobic Blood Culture - Preliminary NO GROWTH IN 1 DAY Resulted 04/09/17 21:42 Nasal Washing Influenza Types A,B Antigen (MARK) - Final NEGATIVE FOR FLU A AND B ANTIGEN.... Complete Result Diagram: 04/12/17 0600 04/12/17 0600 Imaging Last Impressions Renal Ultrasound 04/12/17 0000 Signed Impressions: Service Date/Time: Wednesday, April 12, 2017 13:22 - CONCLUSION: Somewhat small kidneys, right echogenic. Negative for hydronephrosis. Tony Pena MD FACR Chest X-Ray 04/12/17 0000 Signed Impressions: Service Date/Time: Wednesday, April 12, 2017 13:05 - CONCLUSION: 1. No pneumothorax. 2. Worsening bibasilar consolidations. 3. Tiny effusions. Morgan Patterson Jr., MD Consultation 04/11/17 0000 Signed Impressions: Service Date/Time: Tuesday, April 11, 2017 00:00 - CONCLUSION: Procedure was not performed as the patient became diaphoretic and short of breath. The patient was sent immediately back to the unit. Morgan aPtterson Jr., MD Chest CT 04/11/17 0000 Signed Impressions: Service Date/Time: Tuesday, April 11, 2017 13:07 - CONCLUSION: 1. Moderate right and small left pleural effusion with concomitant bibasilar atelectatic changes. 2. In addition, there is patchy airspace disease in the right perihilar distribution. This may represent focal pulmonary edema although early infiltrate cannot be excluded. 3. 2.6 cm mass lesion pedunculated off the posterior aspect of the right hepatic lobe with a faint hypodensity in the left hepatic lobe. Please see the CT report of the abdomen and pelvis for further characterization. 4. Dense atherosclerotic calcification of the coronary arteries and aortic valve with some calcification of the mitral valve anulus. Collins Page MD Abdomen/Pelvis CT 04/09/17 0000 Signed Impressions: Service Date/Time: Sunday, April 09, 2017 23:05 - CONCLUSION: 1. 9 cm mass in the right lobe liver which may reflect gallbladder carcinoma or hepatocellular carcinoma. This would be accessible to percutaneous biopsy. 2. Mild ascites Raul Rodarte MD Assessment and Plan Assessment and Plan Neuro/Psych: History of cataract with IOC Glaucoma Acetaminophen 650 mg every 6 hours when necessary fever/pain 1-10 Currently not on any medications for underlying disorder CV: Severe sepsis secondary to Klebsiella bacteremia Lactic acidosis Currently on sterile water with 3 ampules sodium bicarbonate at 70 cc an hour Monitor close. Possibly will need vasopressor support Serial lactates until clear Check 2-D echocardiogram Resp: Acute respiratory insufficiency PRO on CPAP COPD Nasal cannula to maintain saturations greater than equal to 90% currently on 6 L Incentive spirometry while awake Albuterol/ipratropium aerosols every 6 hours with albuterol aerosols every 2 hours when necessary dyspnea On CPAP at night - [address] thorax revealed bilateral pleural effusion right greater than left. 2.6 cm pedunculated mass right posterior lobe liver. Possible upper airway edema versus infiltrate GI: 9 mm right liver mass Gastroesophageal reflux disease Esophageal dilatation by history Currently on heart healthy diet CT abdomen/pelvis revealed this 9 mm mass right lobe of liver. Currently on famotidine 20 mg IV daily for GI prophylaxis. On omeprazole 20 mg daily at home Docusate sodium/senna 1 tablet twice a day for bowel regimen All transaminases/amylase and lipase in a.m. : History of TURP 3 BPH Chen catheter currently not indicated Endo: Sliding-scale insulin if indicated to maintain euglycemia Renal: Acute kidney injury - creatinine 1.57 Renal ultrasound revealed right echogenic kidney. Urine electrolytes and eosinophils pending Dr. Pettit, nephrology following Monitor urine output Accurate I's and O's Receiving sodium bicarbonate 650 mg by mouth [address] Dr. Pettit Heme: Leukocytosis - 25% bandemia with 75% neutrophils Anemia Currently followed by Dr. Isaacs hematology Plan for bone marrow biopsy/liver biopsy when stable Noted alpha-fetoprotein 6, CEA and CA-19-9 negative. PSA normal On hydroxyurea 500 mg daily prevention tumor lysis syndrome. Last uric acid 6.7 ID: Klebsiella bacteremia Pertinent cultures 04/09 - blood cultures 2 - Klebsiella pneumonia 04/09 - urine - no growth 04/11 - blood cultures 2 - no growth Currently piperacillin/tazobactam per Dr. Almanza FEN: Replace electrolytes as clinically indicated MSK: Osteoarthritis PT evaluate and treat Access - Utilize peripheral IV. Central line if indicated Prophylaxis - GI - pantoprazole - DVT - SCD/holding pharmacological prophylaxis with pending biopsies of bone/ iliac crest and liver/gallbladder plan for 04/13. Level III consult Code Status Full code Discussed Condition With Patient. Daughter at bedside. CV ISU RN. Care plan discussed and all questions answered. Navdeep Garza MD Apr 12, 2017 21:46
[2017-04-13] VITALS (12 sets, daily range): BP systolic 82–115; BP diastolic 59–81; PULSE 105–115; RESP 16–28; TEMP 97.7–98.5; O2SAT 91–97
[2017-04-13] MEDS ORDERED: TERBUTALINE INJ 1 MG/ML AMP SQ PRN (00:45)
[2017-04-13 00:57] LABS: MEAN CELL VOLUME 88.3 FL (80.0-100.0); MEAN CORPUSCULAR HEMOGLOBIN 27.9 PG (27.0-34.0); MEAN CORPUSCULAR HGB CONC 31.6 % (32.0-36.0); PLATELET COUNT 305 TH/MM3 (150-450); RED BLOOD COUNT 3.74 MIL/MM3 (4.50-5.90); RED CELL DISTRIBUTION WIDTH 13.7 % (11.6-17.2); WHITE BLOOD COUNT 128.3 TH/MM3 (4.0-11.0)
[2017-04-13] MEDS ORDERED: PHENYLEPHRINE INJ 160 MG in DEXTROSE 5% IN WATE 500 ML INJ 484 ML IV PRN ×2 (01:00)
[2017-04-13 01:05] LABS: HEMO FLAGS AUTO DIFF
--- NOTE | 2017-04-13 01:07 | PD.PROCEDR ---
Central Line Procedure REASON FOR PROCEDURE Central venous access PROCEDURE PERFORMED Central line placement: L IJ CVL CONSENT Informed consent for procedure was obtained from patient. The risks and benefits of the procedure were discussed to include but limited to bleeding, clot formation, infection, and even . ANESTHESIA Local injection of 1% Lidocaine DESCRIPTION OF THE PROCEDURE The patient was placed in supine, mild Trendelenburg position. The area was exposed and cleansed with ChloraPrep, times two. Large sterile drape was used to cover the patient, with the site exposed, under sterile conditions including cap, face mask, sterile gown, and sterile gloves. On single attempt, the introducer needle was inserted with negative pressure in syringe and venous flash was obtained. The guide wire was then advanced without any restriction and the needle was removed. The dilator was used without any complications. Using Seldinger technique the antibiotic coated TLC catheter was advanced over the guide wire to a depth of 20 centimeters. The guide wire was removed. All ports were aspirated with dark venous blood return and flushed easily with sterile saline. All ports were capped. Antibiotic disc was placed around central line at puncture site. The central line was secured to the skin with two interrupted 2.0 silk sutures. The area was bandaged with sterile see- through central line bandage. RADIOLOGICAL DATA Ultrasound guidance was used to locate Left IJ vein. Doppler/color flow was used to confirm venous flow. COMPLICATIONS: No apparent complications ESTIMATED BLOOD LOSS: Less than 5 cc. Navdeep Garza MD Apr 13, 2017 01:07
[2017-04-13] MEDS ORDERED: SODIUM CHLORIDE 0.9% FLUSH 10 ML FLUSH IV FLUSH PRN ×2 (01:15→15:00)
[2017-04-13] MEDS: SODIUM BICARBONATE 8.4% INJ 150 MEQ in WATER STERILE FOR INJ 850 ML IV SCH ×2 (01:22→15:35)
[2017-04-13] MEDS: PIPERACIL-TAZO 3.375 GM PREMIX 50 ML IV SCH ×4 (01:34→18:03)
--- NOTE | 2017-04-13 01:38 | RADRPT ---
EXAM DATE/TIME: 04/13/2017 01:20 [facility] COMPARISON: No previous studies available for comparison. INDICATIONS : Central line placement. MEDICAL HISTORY : None. SURGICAL HISTORY : None. ENCOUNTER: Initial ACUITY: 1 day PAIN SCORE: 0/10 LOCATION: Bilateral chest FINDINGS: A single view of the chest demonstrates the interval placement of a left IJ central venous catheter w ith its tip over the SVC. There is no evidence of a pneumothorax. Diffuse poor alabaster congestion p ersists. The cardiomediastinal contours are unremarkable. Osseous structures are intact. CONCLUSION: Central line in excellent position. Pulmonary vascular congestion persists. Chapo Blanchard MD on April 13, 2017 at 1:32 Board Certified Radiologist. This report was verified electronically.
[2017-04-13 01:55] LABS: BANDS 40 % (0-6); BLASTS 1 % (0-0); NEUTROPHIL # MANUAL DIFF 125.7 TH/MM3 (1.8-7.7); POLYS (SEG NEUTROPHILS) 58 % (16-70); WBC DIFF SAMPLE 100
[2017-04-13 01:56] LABS: PLATELET ESTIMATE SMEAR NORMAL (NORMAL); PLATELET MORPHOLOGY NORMAL (NORMAL); SCAN/DIFF FINAL DIFF MANUAL
[2017-04-13 01:57] LABS: DOHLE BODIES PRESENT (NONE SEEN); TOXIC GRANULATION 2+ (NORMAL); TOXIC VACUOLATION PRESENT (NONE SEEN)
[2017-04-13 01:58] LABS: ACANTHOCYTES OCC (NORMAL); BURR CELLS 1+ (NORMAL); KERATOCYTES OCC (NORMAL)
[2017-04-13 03:21] LABS: HEMATOCRIT 32.5 % (39.0-51.0); MEAN CORPUSCULAR HEMOGLOBIN 27.9 PG (27.0-34.0); MEAN CORPUSCULAR HGB CONC 31.7 % (32.0-36.0); PLATELET COUNT 321 TH/MM3 (150-450); RED BLOOD COUNT 3.69 MIL/MM3 (4.50-5.90); RED CELL DISTRIBUTION WIDTH 13.9 % (11.6-17.2); WHITE BLOOD COUNT 132.3 TH/MM3 (4.0-11.0)
[2017-04-13 03:24] LABS: HEMO FLAGS AUTO DIFF
[2017-04-13 03:39] LABS: APTT (PATIENT) 33.6 SEC (24.3-30.1); INTERNATIONAL NORMALIZED RATIO 1.1 RATIO; PROTHROMBIN TIME - PATIENT 12.1 SEC (9.8-11.6)
[2017-04-13] MEDS: RESP: ALBUTEROL 2.5 MG/IPRATROPIUM 0.5 MG NEB (SCH) NEB ×4 (03:50→22:55)
[2017-04-13] MEDS: CHLORHEXIDINE GLUCONATE 2 % 1 PACK (2 CLOTHS) TOP SCH (04:00)
[2017-04-13 04:06] LABS: ALKALINE PHOSPHATASE 255 U/L (45-117); ALT (GPT) 79 U/L (12-78); AMYLASE 17 U/L (25-115); ANION GAP 13 MEQ/L (5-15); AST (GOT) 103 U/L (15-37); BICARBONATE 17.9 MEQ/L (21.0-32.0); BLOOD UREA NITROGEN 40 MG/DL (7-18); CHLORIDE 105 MEQ/L (98-107); GLOMERULAR FILTRATION RATE 32 ML/MIN (>89); LDH SERUM 422 U/L (87-241); MAGNESIUM 2.5 MG/DL (1.5-2.5); POTASSIUM 4.6 MEQ/L (3.5-5.1); SODIUM (NA) 136 MEQ/L (136-145); TOTAL BILIRUBIN ADULT 0.9 MG/DL (0.2-1.0); URIC ACID 7.7 MG/DL (2.6-7.2)
[2017-04-13 04:07] LABS: CREATINE KINASE 73 U/L (39-308)
[2017-04-13] MEDS ORDERED: ALBUMIN 5% INJ 500 ML IV ONE (04:15)
[2017-04-13] MEDS ORDERED: ASPIRIN 81 MG CHEW TAB CHEW ONE (04:45)
[2017-04-13] MEDS: FAMOTIDINE 20 MG/2 ML VIAL IV PUSH SCH (05:06)
[2017-04-13 06:54] LABS: BANDS 44 % (0-6); NEUTROPHIL # MANUAL DIFF 129.7 TH/MM3 (1.8-7.7); POLYS (SEG NEUTROPHILS) 54 % (16-70); WBC DIFF SAMPLE 100
[2017-04-13 06:55] LABS: DOHLE BODIES PRESENT (NONE SEEN); PLATELET ESTIMATE SMEAR NORMAL (NORMAL); PLATELET MORPHOLOGY NORMAL (NORMAL); SCAN/DIFF FINAL DIFF MANUAL; TOXIC GRANULATION 1+ (NORMAL); TOXIC VACUOLATION PRESENT (NONE SEEN)
[2017-04-13 06:58] LABS: BURR CELLS 1+ (NORMAL)
--- NOTE | 2017-04-13 07:53 | MB ---
cc: ALMA ROSA BUCK MD DATE OF CONSULTATION 04/13/2017 REASON FOR CONSULTATION Elevated troponin. HISTORY OF PRESENT ILLNESS Ms. Santiago is an 86-year-old man whom I follow for a history of hypertension, hyperlipidemia and an abnormal nuclear stress test. The nuclear was done in September of 2016 and showed a large predominantly fixed inferolateral defect. The patient had remained asymptomatic and quite active, exercising on the treadmill at 3 miles per hour without any difficulty. He presented to the hospital with worsening weakness, weight loss and night sweats. Hospital workup reveals that the patient is septic. CT of the abdomen and pelvis showed a liver mass on the right lobe of the liver. The patient was to undergo a biopsy and was short of breath and subsequently the troponins were found to be elevated. Cardiology was subsequently consulted. The patient right now reports that he is breathing okay. He has had some discomfort that he describes up near his throat but as well has had some in his abdomen that are both associated with his shortness of breath. PAST MEDICAL HISTORY Significant for - 1. Hypertension. 2. Hyperlipidemia. 3. Abnormal nuclear stress test. 4. Anxiety. 5. Sleep apnea. 6. BPH. 7. Alcohol and drug dependence in remission. 8. COPD. 9. Polyneuropathy. ALLERGIES PREDNISONE. CURRENT MEDICATIONS Per the record. REVIEW OF SYSTEMS Except as mentioned in the HPI, all 12 systems are negative. SOCIAL HISTORY The patient does not currently drink or smoke. FAMILY HISTORY Non-contributory. PHYSICAL EXAMINATION VITAL SIGNS: On physical examination vital signs are 97.7, 114, 16, 96/68 with a saturation of 95. IN GENERAL: He is a well-appearing man who is in no apparent distress. NECK: His neck is free from JVD. LUNGS: The lungs had some scattered rhonchi that cleared with cough. ABDOMEN: The abdomen is soft. EXTREMITIES: Free from edema. Labor and delivery Lab values show a white count of 132, hemoglobin of 10.3 and a platelet count of 321. His creatinine is 2.0 and lactic acid is 4.3. AST 103, ALT 79, ammonia 35. Total CK is 73 and troponin is 11.6. TELEMETRY Sinus tachycardia. IMPRESSIONS Elevated troponin - The patient has certainly been hypotensive and remains on 40 mcg of Riley. He as well does have some compensatory tachycardia. Additionally, he is relatively hypoxic. Thus secondary elevation is plausible, especially with the negative CK. At this point he is a poor/not a revascularization candidate with the sepsis and renal insufficiency. We discussed the possibility of further evaluation with cardiac catheterization once the sepsis has been cleared. Additionally, it would be helpful to know if he has hepatocellular cancer at this would clearly impact any potential cardiac revascularization options. The patient's blood pressure is currently too low for any beta blockade. We will start aspirin and heparin. Sepsis - As per ID. Liver mass - As per Hematology. Renal insufficiency - This is being managed by the hop grower. Shortness of breath - This may be multifactorial. Melissa Tapia/SHIV /7:29 AM /7:46 AM
[2017-04-13] MEDS ORDERED: HEPARIN-D5W 25,000 U/250 ML 250 ML IV PRN (08:00)
[2017-04-13] MEDS ORDERED: HEPARIN SODIUM - IV 10,000 UNITS/10 ML VIAL IV PUSH ONE (08:00)
[2017-04-13 08:56] LABS: HEMATOCRIT 31.6 % (39.0-51.0); MEAN CELL VOLUME 87.9 FL (80.0-100.0); MEAN CORPUSCULAR HEMOGLOBIN 27.5 PG (27.0-34.0); MEAN CORPUSCULAR HGB CONC 31.3 % (32.0-36.0); PLATELET COUNT 306 TH/MM3 (150-450); RED CELL DISTRIBUTION WIDTH 13.8 % (11.6-17.2); WHITE BLOOD COUNT 124.9 TH/MM3 (4.0-11.0)
[2017-04-13] MEDS: TRIAMCINOLONE ACET 0.1% LOTION 60 ML BTL TOPICAL SCH ×3 (09:00→15:54)
[2017-04-13] MEDS: SODIUM CHLORIDE 0.9% FLUSH 10 ML FLUSH IV FLUSH SCH ×2 (09:00)
[2017-04-13] MEDS: ASPIRIN 81 MG CHEW TAB PO SCH ×2 (09:00→10:04)
[2017-04-13 09:08] LABS: REVIEW FLAG FINAL
[2017-04-13 09:23] LABS: APTT (PATIENT) 35.3 SEC (24.3-30.1); INTERNATIONAL NORMALIZED RATIO 1.1 RATIO; PROTHROMBIN TIME - PATIENT 12.3 SEC (9.8-11.6)
--- NOTE | 2017-04-13 09:29 | RADRPT ---
EXAM DATE/TIME: 04/13/2017 08:23 [facility] COMPARISON: No previous studies available for comparison. INDICATIONS : Bilateral leg edema. MEDICAL HISTORY : Myocardial infarction. Hypercholesterolemia. Rheumatoid arthritis. Glaucoma. Peripheral neuropathy. C hest pain. Hyperlipidemia. Irregular heartbeat. HTN. COPD. Sleep apnea. Dyspnea. GERD. Esophageal str icture/dilation. Enlarged prostate. Arthritis. Skin cancer. Anxiety. SURGICAL HISTORY : Cataract extraction with lens implants. Right eye laser surgery. TURP. Right wrist benign tumor remov ed. Blood transfusions. ENCOUNTER: Initial ACUITY: 1 day PAIN SCORE: 0/10 LOCATION: Bilateral leg. TECHNIQUE: Venous ultrasound of the left and right leg was performed from the inguinal ligament to the proximal calf. Real-time, color Doppler and spectral tracing, compression and augmentation techniques were us ed. FINDINGS: RIGHT LEG: There is normal compressibility of the deep venous system from the inguinal region to the proximal ca lf. No echogenic clot is seen in the lumen of the common femoral, femoral, popliteal, and posterior tibial veins. There is a normal response of the venous system to proximal and distal augmentation an d respiration. LEFT LEG: There is normal compressibility of the deep venous system from the inguinal region to the proximal ca lf. No echogenic clot is seen in the lumen of the common femoral, femoral, popliteal, and posterior tibial veins. There is a normal response of the venous system to proximal and distal augmentation an d respiration. CONCLUSION: No DVT is identified within either lower extremity. Gerald Fernandez MD on April 13, 2017 at 9:27 Board Certified Radiologist. This report was verified electronically.
--- NOTE | 2017-04-13 09:30 | PD.ONC.PN ---
Subjective Subjective Remarks Afebrile overnight. Patient resting in bed in CVICU. On 6L O2. On pressor support. Dyspneic when talking. Denies pain. Objective Data Date Time Temp Pulse Resp B/P (MAP) Pulse Ox O2 Delivery O2 Flow Rate FiO2 04/13/17 09:08 94 Nasal Cannula 4.00 04/13/17 08:00 97.7 113 16 94/64 (74) 97 04/13/17 08:00 95 Nasal Cannula 6.00 04/13/17 07:00 114 04/13/17 05:40 97.7 114 16 96/68 (77) 95 04/13/17 03:00 97.7 114 16 96/68 (77) 95 04/13/17 03:00 111 04/13/17 01:22 115 85/60 04/13/17 00:00 115 20 82/62 (69) 91 04/12/17 23:00 115 04/12/17 22:16 95 Nasal Cannula 6.00 04/12/17 20:00 120 20 91 04/12/17 19:40 91 Nasal Cannula 4.00 04/12/17 19:40 98.3 120 20 97/62 (74) 91 04/12/17 19:00 118 04/12/17 17:06 98.4 118 20 87/60 (69) 95 04/12/17 13:00 78 17 94/57 (69) 97 04/13/17 04/13/17 04/13/17 07:00 15:00 23:00 Intake Total 940 ml Output Total 500 ml Balance 440 ml Result Diagram: 04/13/17 0840 04/13/17 0305 Laboratory Results Laboratory Tests Test 04/12/17 10:49 04/12/17 16:33 04/12/17 19:58 04/12/17 22:20 Prothrombin Time 11.8 SEC Prothromb Time International Ratio 1.1 RATIO Activated Partial Thromboplast Time 31.2 SEC Uric Acid 6.7 MG/DL Blood Gas Puncture Site LT RADIAL Blood Gas Patient Temperature 98.6 Blood Gas HCO3 16 mmol/L Blood Gas Base Excess -9.8 mmol/L Blood Gas Oxygen Saturation 90 % Arterial Blood pH 7.29 Arterial Blood Partial Pressure CO2 33 mmHg Arterial Blood Partial Pressure O2 72 mmHg Arterial Blood Oxygen Content 14.0 Vol % Arterial Blood Carboxyhemoglobin 0.7 % Arterial Blood Methemoglobin 1.4 % Blood Gas Hemoglobin 11.0 G/DL Oxygen Delivery Device NASAL CANNULA Blood Gas Liter Flow 4 L/M Lactic Acid Level 3.7 mmol/L Nasal Screen MRSA (PCR) MRSA NOT DETECTED Test 04/13/17 00:15 04/13/17 03:05 04/13/17 08:40 White Blood Count 128.3 TH/MM3 132.3 TH/MM3 124.9 TH/MM3 Red Blood Count 3.74 MIL/MM3 3.69 MIL/MM3 3.60 MIL/MM3 Hemoglobin 10.4 GM/DL 10.3 GM/DL 9.9 GM/DL Hematocrit 33.0 % 32.5 % 31.6 % Mean Corpuscular Volume 88.3 FL 88.0 FL 87.9 FL Mean Corpuscular Hemoglobin 27.9 PG 27.9 PG 27.5 PG Mean Corpuscular Hemoglobin Concent 31.6 % 31.7 % 31.3 % Red Cell Distribution Width 13.7 % 13.9 % 13.8 % Platelet Count 305 TH/MM3 321 TH/MM3 306 TH/MM3 Mean Platelet Volume 7.3 FL 7.2 FL 7.1 FL CBC Comment AUTO DIFF AUTO DIFF Differential Total Cells Counted 100 100 Neutrophils % (Manual) 58 % 54 % Band Neutrophils % 40 % 44 % Monocytes % 1 % 2 % Neutrophils # (Manual) 125.7 TH/MM3 129.7 TH/MM3 Differential Comment FINAL DIFF MANUAL FINAL DIFF MANUAL Blastocytes 1 % Toxic Granulation 2+ 1+ Toxic Vacuolation PRESENT PRESENT Dohle Bodies PRESENT PRESENT Platelet Estimate NORMAL NORMAL Platelet Morphology Comment NORMAL NORMAL Randal Cells 1+ 1+ Acanthocytes OCC Keratocytes OCC Uric Acid 7.6 MG/DL 7.7 MG/DL Prothrombin Time 12.1 SEC 12.3 SEC Prothromb Time International Ratio 1.1 RATIO 1.1 RATIO Activated Partial Thromboplast Time 33.6 SEC 35.3 SEC Fibrinogen 434 mg/dL D-Dimer Quantitative (PE/DVT) 2.37 MG/L FEU Blood Urea Nitrogen 40 MG/DL Creatinine 2.02 MG/DL Random Glucose 137 MG/DL Total Protein 5.4 GM/DL Albumin 2.6 GM/DL Calcium Level 9.5 MG/DL Phosphorus Level 5.3 MG/DL Magnesium Level 2.5 MG/DL Alkaline Phosphatase 255 U/L Aspartate Amino Transf (AST/SGOT) 103 U/L Alanine Aminotransferase (ALT/SGPT) 79 U/L Lactate Dehydrogenase 422 U/L Total Bilirubin 0.9 MG/DL Sodium Level 136 MEQ/L Potassium Level 4.6 MEQ/L Chloride Level 105 MEQ/L Carbon Dioxide Level 17.9 MEQ/L Anion Gap 13 MEQ/L Estimat Glomerular Filtration Rate 32 ML/MIN Lactic Acid Level 4.3 mmol/L Ammonia 35 MCMOL/L Total Creatine Kinase 73 U/L Troponin I 11.60 NG/ML Amylase Level 17 U/L Lipase 49 U/L Culture Results Microbiology Date/Time Source Procedure Growth Status 04/11/17 17:37 Blood Peripheral Aerobic Blood Culture - Preliminary NO GROWTH IN 1 DAY Resulted 04/11/17 17:37 Blood Peripheral Anaerobic Blood Culture - Preliminary NO GROWTH IN 1 DAY Resulted 04/11/17 17:32 Blood Peripheral Aerobic Blood Culture - Preliminary NO GROWTH IN 1 DAY Resulted 04/11/17 17:32 Blood Peripheral Anaerobic Blood Culture - Preliminary NO GROWTH IN 1 DAY Resulted Imaging Studies Last 24 hours Impressions Chest X-Ray 04/13/17 0106 Signed Impressions: Service Date/Time: Thursday, April 13, 2017 01:20 - CONCLUSION: Central line in excellent position. Pulmonary vascular congestion persists. Chapo Blanchard MD Administered Medications Medications (Trade) Dose Ordered Sig/Tyler Route PRN Reason Start Time Stop Time Status Last Admin Dose Admin Triamcinolone Acetonide (Kenalog 0.1% Lotion) 1 applic TID TOPICAL 04/10/17 09:00 04/12/17 09:00 Albuterol/ Ipratropium (Duoneb Neb) 1 ampule Q6HR NEB NEB 04/11/17 22:30 04/13/17 09:07 Hydroxyurea (Hydrea) 500 mg TID PO 04/12/17 09:00 04/12/17 17:37 Piperacillin Sod/ Tazobactam Sod 50 ml @ 100 mls/hr Q6H IV 04/12/17 12:00 04/13/17 05:07 Famotidine (Pepcid Inj) 20 mg DAILY@0600 IV PUSH 04/13/17 06:00 04/13/17 05:06 Sodium Bicarbonate 150 meq/Sterile Water 1,000 ml @ 70 mls/hr [id number] IV 04/14/17 00:00 04/13/17 01:22 Phenylephrine HCl 160 mg/Dextrose 500 ml @ 7.5 mls/hr TITRATE PRN IV Blood pressure management 04/13/17 01:00 04/13/17 01:22 Objective Remarks GENERAL: Pleasant elderly male sitting up in bed. Dyspneic when speaking. On 6L O2 via NC SKIN: Warm and dry. HEAD: Normocephalic. EYES: No injection or drainage. NECK: Supple, trachea midline. CARDIOVASCULAR: +S1/S2, tachy RESPIRATORY: anterior simpson clear. GASTROINTESTINAL: Abdomen soft, non-tender, nondistended. EXTREMITIES: No cyanosis. SCD's in place bilaterally. NEUROLOGICAL: awake and alert. no obvious focal deficit. Assessment/Plan Problem List: (1) Leukocytosis ICD Codes: D72.829 - Elevated white blood cell count, unspecified Plan: --started on Hydrea on 04/12 d/t need for cytoreduction, worsening leukocytosis. --peripheral smear did not show any obvious blast cells --concern for underlying lymphoma, leukemia, MDS, MPN or another malignancy --Bone marrow biopsy 04/12 --check daily LDH, Uric acid, Mag and Phosp to monitor for TLS (2) Sepsis ICD Codes: A41.9 - Sepsis, unspecified organism Plan: --Gram-negative bacteremia and sepsis. --on Zosyn --ID following (3) Dyspnea ICD Codes: R06.00 - Dyspnea, unspecified Plan: --due to COPD/pneumonia/leukostasis (4) COPD (chronic obstructive pulmonary disease) ICD Codes: J44.9 - Chronic obstructive pulmonary disease Status: Acute (5) Pneumonia, community acquired ICD Codes: J18.9 - Community acquired pneumonia Status: Acute (6) Liver mass ICD Codes: R16.0 - Hepatomegaly, not elsewhere classified Status: Acute Plan: --Liver mass --CT guided biopsy when bone marrow biopsy is completed --AFP, CEA, 19-9 all WNL --CT chest did not show masses/LAD//possible pneumonia --CT ab showed 9-cm mass in the right lobe of the liver concerning for metastatic carcinoma. Assessment 86-year-old male with a history of hypertension, hyperlipidemia, coronary artery disease who presents to the emergency department with a 6-month history of loss of appetite, weight loss of 30 pounds and night sweats. Vanessa Cervantes, patient's daughter is only living relative and is decision maker. Patient is not and has no other living children. Please call Vanessa with updates: [phone] Plan 1. uric acid 7.7 today. will dose with Rasburicase 7.5mg IV x 1. 2. Dyspnea is worsening. will order STAT Leukapheresis with one blood. to facilitate leukapheresis will have vas-cath placed through invasive radiology 3. bone marrow biopsy today Attending Statement The exam, history, and the medical decision-making described in the above note were completed with the assistance of the mid-level provider. I reviewed and agree with the findings presented. 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 Brandt Has sepsis and hypotension IV abx and pressors d/w rn o/n events reviewed Problem Qualifiers (1) Dyspnea: Qualified Codes: R06.02 - Shortness of breath Anamaria Islas Apr 13, 2017 09:30 Godwin Epps MD Apr 14, 2017 00:11
[2017-04-13] MEDS ORDERED: RASBURICASE INJ 7.5 MG in SODIUM CHLORIDE 0.9% INJ 50 ML IV ONE (10:00)
[2017-04-13] MEDS: DOCUSATE SODIUM 50 MG/SENNA 8.6 MG TAB PO SCH ×2 (10:02→21:00)
[2017-04-13] MEDS: ALLOPURINOL 100 MG TAB PO SCH (10:02)
[2017-04-13] MEDS: HYDROXYUREA 500 MG CAP PO SCH ×3 (10:04→18:05)
--- NOTE | 2017-04-13 10:07 | RADRPT ---
EXAM DATE/TIME: 04/13/2017 08:44 [facility] COMPARISON: CT ABDOMEN & PELVIS W CONTRAST, August 25, 2015, 1:29. CT ABDOMEN & PELVIS W CONTRAST, April 09 017, 23:05. INDICATIONS : Liver mass seen on prior CT. Evaluate biliary system. MEDICAL HISTORY : Myocardial infarction. Hypercholesterolemia. Rheumatoid arthritis. Glaucoma. Peripheral neuropathy. C hest pain. Hyperlipidemia. Irregular heartbeat. HTN. COPD. Sleep apnea. Dyspnea. GERD. Esophageal str icture/dilation. Enlarged prostate. Arthritis. Skin cancer. Anxiety. SURGICAL HISTORY : Cataract extraction with lens implants. Right eye laser surgery. TURP. Right wrist benign tumor remov ed. Blood transfusions. ENCOUNTER: Initial ACUITY: 1 day PAIN SCORE: 0/10 LOCATION: Abdomen. MEASUREMENTS: LIVER: 19.2 cm length COMMON DUCT: 6 mm RIGHT KIDNEY: 10.3 x 4.8 x 4.9 cm SPLEEN: 11.6 cm length FINDINGS: LIVER: There is a heterogeneously hypoechoic lobulated mass within the right lobe of the liver and extending exophytically. It also contacts the gallbladder. The mass measures approximately 13.2 x 10.2 x 9.7 c m. It demonstrates internal color flow indicating that it is solid. COMMON DUCT: No intraluminal mass or stone visualized. GALLBLADDER: Gallbladder is filled with heterogeneous echogenic material without definite internal color-flow iden tified. No shadowing stones are visualized. Sonographic Jeffery's sign is negative. PANCREAS: The visualized portions are within normal limits. RIGHT KIDNEY: No hydronephrosis, stone or mass. Mild increased echotexture. SPLEEN: No focal lesion. There is free fluid around the liver and spleen and bilateral pleural effusions are present. CONCLUSION: 1. There is a 13 cm solid mass in the right lobe of the liver surrounding the gallbladder. Gallbladde r is filled with solid mass versus sludge. Differential diagnostic considerations include both primar y and secondary neoplasm of the liver including gallbladder carcinoma. Percutaneous biopsy could be p erformed for histologic diagnosis, if desired clinically. 2. Increased echotexture of the renal parenchyma suggesting medical renal disease. 3. Bilateral pleural effusions and free fluid within the abdomen. The most recent prior CT demonstrat ed findings diagnostic of peritoneal disease. Gerald Fernandez MD on April 13, 2017 at 9:58 Board Certified Radiologist. This report was verified electronically.
--- NOTE | 2017-04-13 10:47 | HHI.IDPN ---
Subjective Subjective Remarks Patient is an 86-year-old male, presented to the hospital complaining of worsening weakness, weight loss, night sweats. Patient has had frequent falls recently, and in the last week h his weakness has been relieved very pronounced. He's had for appetite, and has had weight loss of about 35. Patient also has been having initially some discomfort in the left lower quadrant, and it started becoming generalized although the intensity has not been worsening. He attributes it to constipation. He was also noted that the patient had some kind of a rash on his thigh about 2 months ago, and it progressively worsened and involved almost his whole body during that time. 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 Markedly improved, and he received systemic steroids about 3 weeks ago. Described as red and somewhat itchy. Patient has not had any nausea but had some vomiting recently. He denies any urinary complaints. He denies any significant respiratory complaint. On presentation patient was febrile up to 102. His white count was 85,000, and it had gone up to greater than 100,000. Hematology is evaluating the patient. CT of the abdomen and pelvis showing a liver mass in the right lobe. Chest x-ray did not show any acute disease. His LFTs are also abnormal. Since his one temperature spike on his first hospital day, patient has remained afebrile. 2 blood cultures done in the emergency room is showing as growing gram-negative rods. Urinalysis is unremarkable. Infectious disease consultation has been requested to evaluate the patient. Notes reviewed Temps ok WBC 125K Creatinine up to 2.02 Transferred to ICU for SOB On 6L nasal O2 Breathing better Also now on neosynephrine Going to have vascath placement for leukopheresis BM and liver biopsy on hold for now Antibiotics Zosyn Past Medical History Hypertension CAD COPD Hyperlipidemia Previous episode of prostatitis BPH Past Surgical History Cataract Surgery Lens Implant TURP Allergies: Coded Allergies: prednisone (Unverified Adverse Reaction, Intermediate, ELEVATED BLOOD GLUCOSE, 04/09/17) Objective . Vital Signs Date Time Temp Pulse Resp B/P (MAP) Pulse Ox O2 Delivery O2 Flow Rate FiO2 04/13/17 09:08 94 Nasal Cannula 4.00 04/13/17 08:00 97.7 113 16 94/64 (74) 97 04/13/17 08:00 95 Nasal Cannula 6.00 04/13/17 07:00 114 04/13/17 05:40 97.7 114 16 96/68 (77) 95 04/13/17 03:00 97.7 114 16 96/68 (77) 95 04/13/17 03:00 111 04/13/17 01:22 115 85/60 04/13/17 00:00 115 20 82/62 (69) 91 04/12/17 23:00 115 04/12/17 22:16 95 Nasal Cannula 6.00 04/12/17 20:00 120 20 91 04/12/17 19:40 91 Nasal Cannula 4.00 04/12/17 19:40 98.3 120 20 97/62 (74) 91 04/12/17 19:00 118 04/12/17 17:06 98.4 118 20 87/60 (69) 95 04/12/17 13:00 78 17 94/57 (69) 97 . Laboratory Tests Test 04/12/17 06:00 04/13/17 00:15 04/13/17 03:05 04/13/17 08:40 White Blood Count 142.2 TH/MM3 128.3 TH/MM3 132.3 TH/MM3 124.9 TH/MM3 Red Blood Count 3.97 MIL/MM3 3.74 MIL/MM3 3.69 MIL/MM3 3.60 MIL/MM3 Hemoglobin 11.3 GM/DL 10.4 GM/DL 10.3 GM/DL 9.9 GM/DL Hematocrit 35.3 % 33.0 % 32.5 % 31.6 % Mean Corpuscular Volume 88.9 FL 88.3 FL 88.0 FL 87.9 FL Mean Corpuscular Hemoglobin 28.5 PG 27.9 PG 27.9 PG 27.5 PG Mean Corpuscular Hemoglobin Concent 32.1 % 31.6 % 31.7 % 31.3 % Red Cell Distribution Width 13.9 % 13.7 % 13.9 % 13.8 % Platelet Count 323 TH/MM3 305 TH/MM3 321 TH/MM3 306 TH/MM3 Mean Platelet Volume 7.4 FL 7.3 FL 7.2 FL 7.1 FL CBC Comment AUTO DIFF AUTO DIFF AUTO DIFF Differential Total Cells Counted 200 100 100 Neutrophils % (Manual) 75 % 58 % 54 % Band Neutrophils % 25 % 40 % 44 % Monocytes % 1 % 1 % 2 % Neutrophils # (Manual) 142.2 TH/MM3 125.7 TH/MM3 129.7 TH/MM3 Differential Comment FINAL DIFF MANUAL FINAL DIFF MANUAL FINAL DIFF MANUAL Toxic Granulation 1+ 2+ 1+ Platelet Estimate NORMAL NORMAL NORMAL Platelet Morphology Comment NORMAL NORMAL NORMAL Acanthocytes OCC OCC Blood Smear Pathologist Review Blastocytes 1 % Toxic Vacuolation PRESENT PRESENT Dohle Bodies PRESENT PRESENT Randal Cells 1+ 1+ Keratocytes OCC Laboratory Tests Test 04/12/17 06:00 04/12/17 10:49 04/12/17 19:58 04/13/17 00:15 Blood Urea Nitrogen 31 MG/DL Creatinine 1.57 MG/DL Random Glucose 140 MG/DL Total Protein 5.3 GM/DL Albumin 2.0 GM/DL Calcium Level 9.5 MG/DL Uric Acid 6.3 MG/DL 6.7 MG/DL 7.6 MG/DL Alkaline Phosphatase 290 U/L Aspartate Amino Transf (AST/SGOT) 129 U/L Alanine Aminotransferase (ALT/SGPT) 88 U/L Lactate Dehydrogenase 509 U/L Total Bilirubin 0.6 MG/DL Sodium Level 134 MEQ/L Potassium Level 4.6 MEQ/L Chloride Level 105 MEQ/L Carbon Dioxide Level 17.8 MEQ/L Anion Gap 11 MEQ/L Estimat Glomerular Filtration Rate 42 ML/MIN Tumor Marker Alpha Fetoprotein 1.9 NG/ML Carcinoembryonic Antigen 0.8 NG/ML CA 19-9 Antigen 23.6 U/ML Prostate Specific Antigen 3.01 NG/ML Lactic Acid Level 3.7 mmol/L Test 04/13/17 03:05 Blood Urea Nitrogen 40 MG/DL Creatinine 2.02 MG/DL Random Glucose 137 MG/DL Total Protein 5.4 GM/DL Albumin 2.6 GM/DL Calcium Level 9.5 MG/DL Phosphorus Level 5.3 MG/DL Magnesium Level 2.5 MG/DL Uric Acid 7.7 MG/DL Alkaline Phosphatase 255 U/L Aspartate Amino Transf (AST/SGOT) 103 U/L Alanine Aminotransferase (ALT/SGPT) 79 U/L Lactate Dehydrogenase 422 U/L Total Bilirubin 0.9 MG/DL Sodium Level 136 MEQ/L Potassium Level 4.6 MEQ/L Chloride Level 105 MEQ/L Carbon Dioxide Level 17.9 MEQ/L Anion Gap 13 MEQ/L Estimat Glomerular Filtration Rate 32 ML/MIN Lactic Acid Level 4.3 mmol/L Ammonia 35 MCMOL/L Total Creatine Kinase 73 U/L Troponin I 11.60 NG/ML Amylase Level 17 U/L Lipase 49 U/L Microbiology Date/Time Source Procedure Growth Status 04/11/17 17:37 Blood Peripheral Aerobic Blood Culture - Preliminary NO GROWTH IN 1 DAY Resulted 04/11/17 17:37 Blood Peripheral Anaerobic Blood Culture - Preliminary NO GROWTH IN 1 DAY Resulted 04/11/17 17:32 Blood Peripheral Aerobic Blood Culture - Preliminary NO GROWTH IN 1 DAY Resulted 04/11/17 17:32 Blood Peripheral Anaerobic Blood Culture - Preliminary NO GROWTH IN 1 DAY Resulted Imaging Last Impressions Chest X-Ray 04/13/17 0106 Signed Impressions: Service Date/Time: Thursday, April 13, 2017 01:20 - CONCLUSION: Central line in excellent position. Pulmonary vascular congestion persists. Chapo Blanchard MD Lower Extremity Ultrasound 04/13/17 0000 Signed Impressions: Service Date/Time: Thursday, April 13, 2017 08:23 - CONCLUSION: No DVT is identified within either lower extremity. Gerald Fernandez MD Liver Ultrasound 04/13/17 0000 Signed Impressions: Service Date/Time: Thursday, April 13, 2017 08:44 - CONCLUSION: 1. There is a 13 cm solid mass in the right lobe of the liver surrounding the gallbladder. Gallbladder is filled with solid mass versus sludge. Differential diagnostic considerations include both primary and secondary neoplasm of the liver including gallbladder carcinoma. Percutaneous biopsy could be performed for histologic diagnosis, if desired clinically. 2. Increased echotexture of the renal parenchyma suggesting medical renal disease. 3. Bilateral pleural effusions and free fluid within the abdomen. The most recent prior CT demonstrated findings diagnostic of peritoneal disease. Gerald Fernandez MD Renal Ultrasound 04/12/17 0000 Signed Impressions: Service Date/Time: Wednesday, April 12, 2017 13:22 - CONCLUSION: Somewhat small kidneys, right echogenic. Negative for hydronephrosis. Tony Pena MD FACR Consultation 04/11/17 0000 Signed Impressions: Service Date/Time: Tuesday, April 11, 2017 00:00 - CONCLUSION: Procedure was not performed as the patient became diaphoretic and short of breath. The patient was sent immediately back to the unit. Morgan Patterson Jr., MD Chest CT 04/11/17 0000 Signed Impressions: Service Date/Time: Tuesday, April 11, 2017 13:07 - CONCLUSION: 1. Moderate right and small left pleural effusion with concomitant bibasilar atelectatic changes. 2. In addition, there is patchy airspace disease in the right perihilar distribution. This may represent focal pulmonary edema although early infiltrate cannot be excluded. 3. 2.6 cm mass lesion pedunculated off the posterior aspect of the right hepatic lobe with a faint hypodensity in the left hepatic lobe. Please see the CT report of the abdomen and pelvis for further characterization. 4. Dense atherosclerotic calcification of the coronary arteries and aortic valve with some calcification of the mitral valve anulus. Collins Page MD Abdomen/Pelvis CT 04/09/17 0000 Signed Impressions: Service Date/Time: Sunday, April 09, 2017 23:05 - CONCLUSION: 1. 9 cm mass in the right lobe liver which may reflect gallbladder carcinoma or hepatocellular carcinoma. This would be accessible to percutaneous biopsy. 2. Mild ascites Raul Rodarte MD Physical Exam GENERAL: awake and alert, not in respiratory distress. SKIN: Warm and dry. No generalized rash, no ecchymoses and no evidence of embolic lesions. HEAD: Atraumatic. Normocephalic. No temporal wasting, or tenderness. EYES: [place] conjunctiva. No petechia or hemorrhage. Pupils equal, round and reactive to light. Extraocular movements full and intact. No scleral icterus. No injection or drainage. EARS, NOSE AND THROAT: Nose without bleeding or purulent nasal discharge. No sinus tenderness. Mucous membranes pink and moist. No oral lesions noted. No exudate. No oral thrush. NECK: Trachea midline. Supple and not tender, no meningeal signs CARDIOVASCULAR: Regular rate and rhythm. No murmurs, rubs or gallops heard RESPIRATORY: Clear to auscultation. Breath sounds equal bilaterally. No rales , wheezing or rhonchi ABDOMEN: Soft, nondistended, mild tenderness in RUQ, no guarding or rebound. Bowel sounds present and normoactive. No guarding. No rebound. No organomegaly. EXTREMITIES: No clubbing, cyanosis. Has mild pedal edema. No joint effusion , has good ROM. No calf tenderness. Well perfused and warm. NEUROLOGICAL: Awake and alert. Cranial nerves grossly intact. Motor grossly within normal limits. PSYCHIATRIC: Normal affect, calm and cooperative. LINE: No evidence of infection Assessment & Plan Remarks IMPRESSION SEpsis, on admission, has Klebsiella pneumoniae in BC, likely source is biliary tree R lobe liver mass Severe leukocytosis, no blast seen, mostly neutrophils Renal insufficiency Hx BPH RECOMMENDATION Follow repeat BC Continue Zosyn Hematology evaluating patient's leukocytosis and liver mass Follow temps Monitor progress D/W RN Spoke with family Nicki Almanza MD Apr 13, 2017 10:47
--- NOTE | 2017-04-13 10:54 | HHI.PR ---
Subjective Remarks This is a 86-year-old male. Date of admission 04/10/2017. Date of consultation 04/12/2017. Past medical history includes coronary disease, hypertension, dyslipidemia, COPD, arthritis, PRO on CPAP at night, BPH, gastroesophageal reflux disease and glaucoma. Patient originally presented to [facility] with chief complaint of generalized weakness and recurrent falls for several weeks duration worse on day of admission.. Positive for fever chills and night sweats. Hemodynamically stable. On admission, abnormal laboratory included elevated white cells of 85.2, previously 9.3 on 10/07/15. Bands 22%. Acute kidney injury, elevated lactate and elevated LFTs. 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 isaacs hematology was consulted for possible bone marrow biopsy/ coronary need biopsy of liver/gallbladder mass. Blood cultures 2 were drawn on that day as well. They're currently going Klebsiella pneumonia. She has been on piperacillin/tazobactam which is been continued by Dr. Almanza/infectious disease in consultation. CT abdomen/pelvis again revealed a 9 mm right lobe liver mass. Gallbladder versus paracytic or in the differential. CT thorax revealed bilateral pleural effusions 2.6 mass the right head of liver. Renal ultrasound revealed right echogenic kidneys. AFP, CEA and CA 19/9 normal. LDH elevated. Uric acid around 3. Today, patient has had borderline blood pressures and was transferred to the intensive care unit. Likely is currently 3.7. Patient is tachycardic with a mutual pressure greater than 65. Creatinine slightly rising long white blood cells. Patient did not receive bone marrow or liver biopsy due to shortness of breath. Patient received 15 L in with inaccurate outputs document. 04-13 TRANSFERRED BACK TO OUR SERVICE TO GET VAS-CATH TODAY FOR LEUKOPHORESIS- HOPEFULLY BONE MARROW ALSO WITH INTERVENTIONAL RADIOLOGY DENIES SOB, OR CHEST PAIN DW PATIENT AND RN AND FAMILY Continue current treatments Monitor renal functions A.m. labs Objective Vitals Vital Signs Date Time Temp Pulse Resp B/P (MAP) Pulse Ox O2 Delivery O2 Flow Rate FiO2 04/13/17 09:08 94 Nasal Cannula 4.00 04/13/17 08:00 97.7 113 16 94/64 (74) 97 04/13/17 08:00 95 Nasal Cannula 6.00 04/13/17 07:00 114 04/13/17 05:40 97.7 114 16 96/68 (77) 95 04/13/17 03:00 97.7 114 16 96/68 (77) 95 04/13/17 03:00 111 04/13/17 01:22 115 85/60 04/13/17 00:00 115 20 82/62 (69) 91 04/12/17 23:00 115 04/12/17 22:16 95 Nasal Cannula 6.00 04/12/17 20:00 120 20 91 04/12/17 19:40 91 Nasal Cannula 4.00 04/12/17 19:40 98.3 120 20 97/62 (74) 91 04/12/17 19:00 118 04/12/17 17:06 98.4 118 20 87/60 (69) 95 04/12/17 13:00 78 17 94/57 (69) 97 I/O 04/12/17 04/12/17 04/12/17 04/13/17 04/13/17 04/13/17 07:00 15:00 23:00 07:00 15:00 23:00 Intake Total 1680 ml 100 ml 940 ml Output Total 1 ml 500 ml Balance 1679 ml 100 ml 440 ml Intake Oral 480 ml 240 ml IV Total 1200 ml 100 ml 700 ml Output Urine Total 500 ml Stool Total 1 ml # Voids 2 1 # Bowel Movements 1 1 Result Diagram: 04/13/17 0840 04/13/17 0305 Other Results Laboratory Tests Test 04/11/17 05:50 04/11/17 10:10 04/12/17 06:00 04/12/17 10:49 White Blood Count 111.5 TH/MM3 142.2 TH/MM3 Red Blood Count 4.30 MIL/MM3 3.97 MIL/MM3 Hemoglobin 11.9 GM/DL 11.3 GM/DL Hematocrit 37.9 % 35.3 % Mean Corpuscular Volume 88.2 FL 88.9 FL Mean Corpuscular Hemoglobin 27.7 PG 28.5 PG Mean Corpuscular Hemoglobin Concent 31.4 % 32.1 % Red Cell Distribution Width 13.7 % 13.9 % Platelet Count 347 TH/MM3 323 TH/MM3 Mean Platelet Volume 7.4 FL 7.4 FL CBC Comment AUTO DIFF AUTO DIFF Differential Total Cells Counted 200 200 Neutrophils % (Manual) 87 % 75 % Band Neutrophils % 11 % 25 % Lymphocytes % 1 % Monocytes % 2 % 1 % Neutrophils # (Manual) 109.3 TH/MM3 142.2 TH/MM3 Differential Comment FINAL DIFF MANUAL FINAL DIFF MANUAL Platelet Estimate NORMAL NORMAL Platelet Morphology Comment NORMAL NORMAL Red Cell Morphology Comment NORMAL Blood Urea Nitrogen 19 MG/DL 31 MG/DL Creatinine 1.35 MG/DL 1.57 MG/DL Random Glucose 119 MG/DL 140 MG/DL Total Protein 5.4 GM/DL 5.3 GM/DL Albumin 2.2 GM/DL 2.0 GM/DL Calcium Level 9.5 MG/DL 9.5 MG/DL Alkaline Phosphatase 306 U/L 290 U/L Aspartate Amino Transf (AST/SGOT) 232 U/L 129 U/L Alanine Aminotransferase (ALT/SGPT) 100 U/L 88 U/L Total Bilirubin 1.0 MG/DL 0.6 MG/DL Sodium Level 134 MEQ/L 134 MEQ/L Potassium Level 4.9 MEQ/L 4.6 MEQ/L Chloride Level 103 MEQ/L 105 MEQ/L Carbon Dioxide Level 22.3 MEQ/L 17.8 MEQ/L Anion Gap 9 MEQ/L 11 MEQ/L Estimat Glomerular Filtration Rate 50 ML/MIN 42 ML/MIN Toxic Granulation 1+ Acanthocytes OCC Blood Smear Pathologist Review Uric Acid 6.3 MG/DL 6.7 MG/DL Lactate Dehydrogenase 509 U/L Tumor Marker Alpha Fetoprotein 1.9 NG/ML Carcinoembryonic Antigen 0.8 NG/ML CA 19-9 Antigen 23.6 U/ML Prostate Specific Antigen 3.01 NG/ML Prothrombin Time 11.8 SEC Prothromb Time International Ratio 1.1 RATIO Activated Partial Thromboplast Time 31.2 SEC Test 04/12/17 16:33 04/12/17 19:58 04/12/17 22:20 04/13/17 00:15 Blood Gas Puncture Site LT RADIAL Blood Gas Patient Temperature 98.6 Blood Gas HCO3 16 mmol/L Blood Gas Base Excess -9.8 mmol/L Blood Gas Oxygen Saturation 90 % Arterial Blood pH 7.29 Arterial Blood Partial Pressure CO2 33 mmHg Arterial Blood Partial Pressure O2 72 mmHg Arterial Blood Oxygen Content 14.0 Vol % Arterial Blood Carboxyhemoglobin 0.7 % Arterial Blood Methemoglobin 1.4 % Blood Gas Hemoglobin 11.0 G/DL Oxygen Delivery Device NASAL CANNULA Blood Gas Liter Flow 4 L/M Lactic Acid Level 3.7 mmol/L Nasal Screen MRSA (PCR) MRSA NOT DETECTED White Blood Count 128.3 TH/MM3 Red Blood Count 3.74 MIL/MM3 Hemoglobin 10.4 GM/DL Hematocrit 33.0 % Mean Corpuscular Volume 88.3 FL Mean Corpuscular Hemoglobin 27.9 PG Mean Corpuscular Hemoglobin Concent 31.6 % Red Cell Distribution Width 13.7 % Platelet Count 305 TH/MM3 Mean Platelet Volume 7.3 FL CBC Comment AUTO DIFF Differential Total Cells Counted 100 Neutrophils % (Manual) 58 % Band Neutrophils % 40 % Monocytes % 1 % Neutrophils # (Manual) 125.7 TH/MM3 Differential Comment FINAL DIFF MANUAL Blastocytes 1 % Toxic Granulation 2+ Toxic Vacuolation PRESENT Dohle Bodies PRESENT Platelet Estimate NORMAL Platelet Morphology Comment NORMAL [place] Cells 1+ Acanthocytes OCC Keratocytes OCC Uric Acid 7.6 MG/DL Test 04/13/17 03:05 04/13/17 08:40 White Blood Count 132.3 TH/MM3 124.9 TH/MM3 Red Blood Count 3.69 MIL/MM3 3.60 MIL/MM3 Hemoglobin 10.3 GM/DL 9.9 GM/DL Hematocrit 32.5 % 31.6 % Mean Corpuscular Volume 88.0 FL 87.9 FL Mean Corpuscular Hemoglobin 27.9 PG 27.5 PG Mean Corpuscular Hemoglobin Concent 31.7 % 31.3 % Red Cell Distribution Width 13.9 % 13.8 % Platelet Count 321 TH/MM3 306 TH/MM3 Mean Platelet Volume 7.2 FL 7.1 FL CBC Comment AUTO DIFF Differential Total Cells Counted 100 Neutrophils % (Manual) 54 % Band Neutrophils % 44 % Monocytes % 2 % Neutrophils # (Manual) 129.7 TH/MM3 Differential Comment FINAL DIFF MANUAL Toxic Granulation 1+ Toxic Vacuolation PRESENT Dohle Bodies PRESENT Platelet Estimate NORMAL Platelet Morphology Comment NORMAL [place] Cells 1+ Prothrombin Time 12.1 SEC 12.3 SEC Prothromb Time International Ratio 1.1 RATIO 1.1 RATIO Activated Partial Thromboplast Time 33.6 SEC 35.3 SEC Fibrinogen 434 mg/dL D-Dimer Quantitative (PE/DVT) 2.37 MG/L FEU Blood Urea Nitrogen 40 MG/DL Creatinine 2.02 MG/DL Random Glucose 137 MG/DL Total Protein 5.4 GM/DL Albumin 2.6 GM/DL Calcium Level 9.5 MG/DL Phosphorus Level 5.3 MG/DL Magnesium Level 2.5 MG/DL Uric Acid 7.7 MG/DL Alkaline Phosphatase 255 U/L Aspartate Amino Transf (AST/SGOT) 103 U/L Alanine Aminotransferase (ALT/SGPT) 79 U/L Lactate Dehydrogenase 422 U/L Total Bilirubin 0.9 MG/DL Sodium Level 136 MEQ/L Potassium Level 4.6 MEQ/L Chloride Level 105 MEQ/L Carbon Dioxide Level 17.9 MEQ/L Anion Gap 13 MEQ/L Estimat Glomerular Filtration Rate 32 ML/MIN Lactic Acid Level 4.3 mmol/L Ammonia 35 MCMOL/L Total Creatine Kinase 73 U/L Troponin I 11.60 NG/ML Amylase Level 17 U/L Lipase 49 U/L Imaging Last Impressions Chest X-Ray 04/13/17 0106 Signed Impressions: Service Date/Time: Thursday, April 13, 2017 01:20 - CONCLUSION: Central line in excellent position. Pulmonary vascular congestion persists. Chapo Blanchard MD Lower Extremity Ultrasound 04/13/17 0000 Signed Impressions: Service Date/Time: Thursday, April 13, 2017 08:23 - CONCLUSION: No DVT is identified within either lower extremity. Gerald Fernandez MD Liver Ultrasound 04/13/17 0000 Signed Impressions: Service Date/Time: Thursday, April 13, 2017 08:44 - CONCLUSION: 1. There is a 13 cm solid mass in the right lobe of the liver surrounding the gallbladder. Gallbladder is filled with solid mass versus sludge. Differential diagnostic considerations include both primary and secondary neoplasm of the liver including gallbladder carcinoma. Percutaneous biopsy could be performed for histologic diagnosis, if desired clinically. 2. Increased echotexture of the renal parenchyma suggesting medical renal disease. 3. Bilateral pleural effusions and free fluid within the abdomen. The most recent prior CT demonstrated findings diagnostic of peritoneal disease. Gerald Fernandez MD Renal Ultrasound 04/12/17 0000 Signed Impressions: Service Date/Time: Wednesday, April 12, 2017 13:22 - CONCLUSION: Somewhat small kidneys, right echogenic. Negative for hydronephrosis. Tony Pena MD FACR Consultation 04/11/17 0000 Signed Impressions: Service Date/Time: Tuesday, April 11, 2017 00:00 - CONCLUSION: Procedure was not performed as the patient became diaphoretic and short of breath. The patient was sent immediately back to the unit. Morgan Patterson Jr., MD Chest CT 04/11/17 0000 Signed Impressions: Service Date/Time: Tuesday, April 11, 2017 13:07 - CONCLUSION: 1. Moderate right and small left pleural effusion with concomitant bibasilar atelectatic changes. 2. In addition, there is patchy airspace disease in the right perihilar distribution. This may represent focal pulmonary edema although early infiltrate cannot be excluded. 3. 2.6 cm mass lesion pedunculated off the posterior aspect of the right hepatic lobe with a faint hypodensity in the left hepatic lobe. Please see the CT report of the abdomen and pelvis for further characterization. 4. Dense atherosclerotic calcification of the coronary arteries and aortic valve with some calcification of the mitral valve anulus. Collins Page MD Abdomen/Pelvis CT 04/09/17 0000 Signed Impressions: Service Date/Time: Sunday, April 09, 2017 23:05 - CONCLUSION: 1. 9 cm mass in the right lobe liver which may reflect gallbladder carcinoma or hepatocellular carcinoma. This would be accessible to percutaneous biopsy. 2. Mild ascites Raul Rodarte MD Objective Remarks GENERAL: Awake alert oriented 3 --talkative and cooperative SKIN: Warm and dry. No obvious rashes HEAD: Atraumatic. Normocephalic. EYES: Pupils equal and round. No scleral icterus. No injection or drainage. Extraocular muscles intact ENT: No nasal bleeding or discharge. Mucous membranes pink and moist. Tongue is midline NECK: Trachea midline. No JVD. Supple left sided IJ catheter in place CARDIOVASCULAR: Regular rate and rhythm. S1 and S2 no S3 or S4 RESPIRATORY: No accessory muscle use. Clear to auscultation. Breath sounds equal bilaterally. GASTROINTESTINAL: Abdomen soft, non-tender, nondistended. Hepatic and splenic margins not palpable. MUSCULOSKELETAL: Extremities without clubbing, cyanosis, or edema. No obvious deformities. NEUROLOGICAL: Awake and alert. No obvious cranial nerve deficits. Motor grossly within normal limits. Five out of 5 muscle strength in the arms and legs. Normal speech. PSYCHIATRIC: Appropriate mood and affect; insight and judgment normal. Procedures LEFT IJ CENTRAL LINE 04-[address] PALUMBO Medications and IVs Current Medications Acetaminophen (Tylenol) 650 mg ONCE ONCE PO Last administered on 04/09/17t 21 :51; Start 04/09/17 at 21:15; Stop 04/09/17 at 21:16; Status DC Sodium Chloride 1,000 ml @ 2,000 mls/hr Q30M ONCE IV Last administered on 21:51; Start 04/09/17 at 21:15; Stop 04/09/17 at 21:44; Status DC Sodium Chloride 1,000 ml @ 2,000 mls/hr Q30M ONCE IV Last administered on 22:20; Start 04/09/17 at 21:15; Stop 04/09/17 at 21:44; Status DC Vancomycin HCl 1000 mg/Sodium Chloride 250 ml @ 250 mls/hr ONCE ONCE IV Last administered on 04/09/17 23:30; Start 04/09/17 at 22:15; Stop 04/09/17 at 23 :14; Status DC Piperacillin Sod/ Tazobactam Sod 50 ml @ 100 mls/hr ONCE ONCE IV Last administered on 04/09/17 22:20; Start 04/09/17 at 22:15; Stop 04/09/17 at 22 :44; Status DC Iohexol (Omnipaque 350 Inj) 97 ml STK-MED ONCE IVCONTRAST Last administered on 04/09/17 20:57; Start 04/09/17 at 20:57; Stop 04/09/17 at 23:34; Status DC Pharmacy Profile Note 0 ml @ 0 mls/hr UNSCH OTHER ; Start 04/10/17 at 00:15; Stop 04/12/17 at 10:59; Status DC Cefepime HCl 1000 mg/Sodium Chloride 100 ml @ 200 mls/hr Q12H IV Last administered on 04/11/17 09:28; Start 04/10/17 at 09:00; Stop 04/11/17 at 11 :04; Status DC Sodium Chloride 1,000 ml @ 150 mls/hr Q6H40M IV Last administered on 01:10; Start 04/10/17 at 00:13; Stop 04/12/17 at 21:54; Status DC Sodium Chloride (NS Flush) 2 ml UNSCH PRN IV FLUSH FLUSH AFTER USING IV ACCESS ; Start 04/10/17 at 00:15; Stop 04/12/17 at 21:53; Status DC Sodium Chloride (NS Flush) 2 ml BID IV FLUSH Last administered on 04/12/17 21 :00; Start 04/10/17 at 09:00; Stop 04/12/17 at 21:53; Status DC Ondansetron HCl (Zofran Inj) 4 mg Q6H PRN IVP NAUSEA OR VOMITING Last administered on 04/11/17 14:55; Start 04/10/17 at 00:15; Stop 04/12/17 at 21 :54; Status DC Acetaminophen (Tylenol) 650 mg Q6H PRN PO FEVER/PAIN SCALE 1 TO 2 Last administered on 04/10/17 17:18; Start 04/10/17 at 00:15; Stop 04/12/17 at 21 :55; Status DC Acetaminophen/ Hydrocodone Bitart (Rock 5-325 Mg) 1 tab Q4H PRN PO PAIN SCALE 3 TO 5; Start 04/10/17 at 00:15; Stop 04/12/17 at 21:55; Status DC Morphine Sulfate (Morphine Inj) 2 mg Q3H PRN IV PUSH Pain 6-10; Start at 00:15; Stop 04/12/17 at 21:55; Status DC Senna/Docusate Sodium (Marry-Colace) 1 tab BID PO Last administered on 09:37; Start 04/10/17 at 09:00; Stop 04/12/17 at 21:54; Status DC Magnesium Hydroxide (Milk Of Magnesia Liq) 30 ml Q12H PRN PO Mild constipation ; Start 04/10/17 at 00:15; Stop 04/12/17 at 21:54; Status DC Sennosides (Senokot) 17.2 mg Q12H PRN PO Moderate constipation; Start at 00:15; Stop 04/12/17 at 21:54; Status DC Bisacodyl (Dulcolax Supp) 10 mg DAILY PRN RECTAL SEVERE CONSITIPATION; Start 04/10/17 at 00:15; Stop 04/12/17 at 21:54; Status DC Lactulose (Lactulose Liq) 30 ml DAILY PRN PO SEVERE CONSITIPATION; Start 04/10 at 00:15; Stop 04/12/17 at 21:54; Status DC Triamcinolone Acetonide (Kenalog 0.1% Lotion) 1 applic TID TOPICAL Last administered on 04/12/17 09:00; Start 04/10/17 at 09:00 Sodium Chloride 1,000 ml @ 999 mls/hr BOLUS ONCE IV Last administered on 04:30; Start 04/10/17 at 04:30; Stop 04/10/17 at 05:30; Status DC Sodium Chloride 1,000 ml @ 999 mls/hr BOLUS ONCE IV ; Start 04/10/17 at 06:30 ; Stop 04/10/17 at 07:30; Status DC Vancomycin HCl 1250 mg/Sodium Chloride 262.5 ml @ 250 mls/hr Q18H IV Last administered on 04/10/17 17:17; Start 04/10/17 at 18:00; Stop 04/11/17 at 12 :09; Status DC Miscellaneous Information SPECIFIC LAB TO BE DRAWN:VANCO TROUGH DATE TO BE DR... ONCE ONCE .XX ; Start 04/12/17 at 17:45; Stop 04/12/17 at 17:46; Status Cancel Senna/Docusate Sodium (Marry-Colace) 2 tab ONCE ONCE PO Last administered on 17:18; Start 04/10/17 at 14:30; Stop 04/10/17 at 14:36; Status DC Magnesium Hydroxide (Milk Of Magnesia Liq) 30 ml ONCE ONCE PO Last administered on 04/10/17 17:18; Start 04/10/17 at 14:30; Stop 04/10/17 at 14 :36; Status DC Sodium Chloride 500 ml @ 500 mls/hr BOLUS ONCE IV Last administered on 23:45; Start 04/10/17 at 23:45; Stop 04/11/17 at 00:44; Status DC Hydroxyurea (Hydrea) 500 mg BID PO Last administered on 04/11/17 20:26; Start 04/11/17 at 09:00; Stop 04/12/17 at 08:12; Status DC Cefepime HCl 2000 mg/Sodium Chloride 100 ml @ 200 mls/hr Q8H IV ; Start at 12:00; Stop 04/11/17 at 12:00; Status DC Sodium Chloride 500 ml @ 500 mls/hr BOLUS ONCE IV Last administered on 13:49; Start 04/11/17 at 11:30; Stop 04/11/17 at 12:29; Status DC Cefepime HCl 2000 mg/Sodium Chloride 100 ml @ 200 mls/hr Q8H IV Last administered on 04/12/17 09:39; Start 04/11/17 at 17:00; Stop 04/12/17 at 10 :59; Status DC Vancomycin HCl 1250 mg/Sodium Chloride 262.5 ml @ 250 mls/hr Q24H IV Last administered on 04/11/17 20:24; Start 04/11/17 at 18:00; Stop 04/12/17 at 10 :59; Status DC Iohexol (Omnipaque 350 Inj) 100 ml STK-MED ONCE IVCONTRAST Last administered on 04/11/17 13:34; Start 04/11/17 at 13:34; Stop 04/11/17 at 13:35; Status DC Sodium Chloride 500 ml @ 500 mls/hr BOLUS ONCE IV Last administered on 18:00; Start 04/11/17 at 16:30; Stop 04/11/17 at 17:29; Status DC Methylprednisolone Sodium Succinate (SoluMEDROL INJ) 40 mg ONCE ONCE IV PUSH Last administered on 04/11/17 17:53; Start 04/11/17 at 17:00; Stop 04/11/17 at 17:03; Status DC Albuterol/ Ipratropium (Duoneb Neb) 1 ampule Q6HR NEB NEB Last administered on 04/13/17 09:07; Start 04/11/17 at 22:30 Albuterol/ Ipratropium (Duoneb Neb) 1 ampule Q2HR NEB PRN NEB sob wheeze; Start 04/11/17 at 22:15; Stop 04/12/17 at 21:43; Status DC Hydroxyurea (Hydrea) 500 mg TID PO Last administered on 04/13/17 10:04; Start 04/12/17 at 09:00 Piperacillin Sod/ Tazobactam Sod 50 ml @ 100 mls/hr Q6H IV Last administered on 04/13/17 05:07; Start 04/12/17 at 12:00 Albumin Human 100 ml @ 60 mls/hr ONCE ONCE IV Last administered on 12:46; Start 04/12/17 at 12:30; Stop 04/12/17 at 14:09; Status DC Sodium Bicarbonate (Sodium Bicarbonate) 650 mg ONCE ONCE PO Last administered on 04/12/17 17:37; Start 04/12/17 at 12:45; Stop 04/12/17 at 13:01; Status DC Lidocaine/ Epinephrine (Xylocaine-Epi 1%-1:100,000 Inj) 20 ml STK-MED ONCE .ROUTE ; Start 04/12/17 at 13:07; Stop 04/12/17 at 13:08; Status DC Sodium Chloride 500 ml @ 500 mls/hr BOLUS ONCE IV Last administered on 21:29; Start 04/12/17 at 20:45; Stop 04/12/17 at 21:44; Status DC Albumin Human 100 ml @ 60 mls/hr ONCE ONCE IV Last administered on 21:15; Start 04/12/17 at 22:00; Stop 04/12/17 at 23:39; Status DC Sodium Chloride 1,000 ml @ 84 mls/hr [id number] IV ; Start 04/12/17 at 21:37; Stop 04/12/17 at 23:51; Status DC Sodium Chloride (NS Flush) 2 ml UNSCH PRN IV FLUSH FLUSH AFTER USING IV ACCESS ; Start 04/12/17 at 21:45 Sodium Chloride (NS Flush) 2 ml BID IV FLUSH Last administered on 04/13/17 09 :00; Start 04/13/17 at 09:00 Acetaminophen (Tylenol) 650 mg Q6H PRN PO PAIN 1-10 AND/OR FEVER >101F; Start 04/12/17 at 21:45 Famotidine (Pepcid Inj) 20 mg DAILY@0600 IV PUSH Last administered on 05:06; Start 04/13/17 at 06:00 Ondansetron HCl (Zofran Inj) 4 mg Q6H PRN IV PUSH NAUSEA OR VOMITING; Start at 21:45 Albuterol Sulfate (Albuterol Neb) 2.5 mg Q2HR NEB PRN INH SOB/WHEEZING; Start 04/12/17 at 21:45 Miscellaneous Information 1 [id number] XX ; Start 04/12/17 at 21:45 Chlorhexidine Gluconate (Chlorhexidine 2% Cloth) 3 pack Taper DAILY@04 TOP ; Start 04/13/17 at 04:00; Stop 04/09/18 at 03:59 Chlorhexidine Gluconate (Chlorhexidine 2% Cloth) 3 pack UNSCH PRN TOP HYGIENIC CARE; Start 04/12/17 at 21:45 Senna/Docusate Sodium (Marry-Colace) 1 tab BID PO Last administered on 10:02; Start 04/13/17 at 09:00 Magnesium Hydroxide (Milk Of Magnesia Liq) 30 ml Q12H PRN PO Mild constipation ; Start 04/12/17 at 21:45 Sennosides (Senokot) 17.2 mg Q12H PRN PO Moderate constipation; Start at 21:45 Bisacodyl (Dulcolax Supp) 10 mg DAILY PRN RECTAL SEVERE CONSITIPATION; Start 04/12/17 at 21:45 Lactulose (Lactulose Liq) 30 ml DAILY PRN PO SEVERE CONSITIPATION; Start 04/12 at 21:45 Sodium Bicarbonate 150 meq/Sterile Water 1,000 ml @ 70 mls/hr [id number] IV Last administered on 04/13/17 01:22; Start 04/14/17 at 00:00 Phenylephrine HCl 160 mg/Dextrose 500 ml @ 7.5 mls/hr TITRATE PRN IV Blood pressure management Last administered on 04/13/17 01:22; Start 04/13/17 at 01 :00 Terbutaline Sulfate (Brethine Inj) 1 mg UNSCH PRN SQ For Extravasation; Start 04/13/17 at 00:45 Sodium Chloride (NS Flush) DAILY IV FLUSH Last administered on 04/13/17 09: 00; Start 04/13/17 at 09:00 Sodium Chloride (NS Flush) UNSCH PRN IV FLUSH SEE PROTOCOL; Start 04/13/17 at 01:15 Albumin Human 500 ml @ 250 mls/hr ONCE ONCE IV Last administered on 05:19; Start 04/13/17 at 04:15; Stop 04/13/17 at 06:14; Status DC Aspirin (Aspirin Chew) 81 mg ONCE ONCE CHEW Last administered on 04/13/17 05 :06; Start 04/13/17 at 04:45; Stop 04/13/17 at 04:46; Status DC Allopurinol (Zyloprim) 100 mg DAILY PO Last administered on 04/13/17 10:02; Start 04/13/17 at 09:00 Aspirin (Aspirin Chew) 81 mg DAILY PO Last administered on 04/13/17 10:04; Start 04/13/17 at 09:00 Heparin Sodium (Porcine) (Heparin Inj) 3,000 units ONCE ONCE IV PUSH ; Start 04/13/17 at 08:00; Stop 04/13/17 at 08:05; Status DC Heparin Sodium (Porcine) (Heparin Inj) 5,000 units UNSCH PRN IV PUSH APTT LESS THAN 25; Start 04/13/17 at 13:45 Heparin Sodium (Porcine) (Heparin Inj) 2,500 units UNSCH PRN IV PUSH APTT 25 TO 39; Start 04/13/17 at 13:45 Heparin Sodium/ Dextrose 250 ml @ 9 mls/hr TITRATE PRN IV Coagulation Management; Start 04/13/17 at 08:00 Rasburicase 7.5 mg/Sodium Chloride 50 ml @ 100 mls/hr ONCE ONCE IV ; Start at 10:00; Stop 04/13/17 at 10:29; Status DC A/P Problem List: (1) Sepsis ICD Code: A41.9 - Sepsis, unspecified organism (2) Leukocytosis ICD Code: D72.829 - Elevated white blood cell count, unspecified (3) Liver mass ICD Code: R16.0 - Hepatomegaly, not elsewhere classified Status: Acute (4) Dehydration ICD Code: E86.0 - Dehydration Assessment and Plan Assessment and Plan Neuro/Psych: History of cataract with IOC Glaucoma Acetaminophen 650 mg every 6 hours when necessary fever/pain 1-10 Currently not on any medications for underlying disorder CV: Severe sepsis secondary to Klebsiella bacteremia Lactic acidosis Currently on sterile water with 3 ampules sodium bicarbonate at 70 cc an hour Monitor close. Possibly will need vasopressor support Serial lactates until clear Check 2-D echocardiogram Resp: Acute respiratory insufficiency PRO on CPAP COPD Nasal cannula to maintain saturations greater than equal to 90% currently on 6 L Incentive spirometry while awake Albuterol/ipratropium aerosols every 6 hours with albuterol aerosols every 2 hours when necessary dyspnea On CPAP at night - [address] thorax revealed bilateral pleural effusion right greater than left. 2.6 cm pedunculated mass right posterior lobe liver. Possible upper airway edema versus infiltrate GI: 9 mm right liver mass Gastroesophageal reflux disease Esophageal dilatation by history Currently on heart healthy diet CT abdomen/pelvis revealed this 9 mm mass right lobe of liver. Currently on famotidine 20 mg IV daily for GI prophylaxis. On omeprazole 20 mg daily at home Docusate sodium/senna 1 tablet twice a day for bowel regimen All transaminases/amylase and lipase in a.m. : History of TURP 3 BPH Chen catheter currently not indicated Endo: Sliding-scale insulin if indicated to maintain euglycemia Renal: Acute kidney injury - creatinine 1.57 Renal ultrasound revealed right echogenic kidney. Urine electrolytes and eosinophils pending Dr. Pettit, nephrology following Monitor urine output Accurate I's and O's Receiving sodium bicarbonate 650 mg by mouth [address] Dr. Pettit Heme: Leukocytosis - 25% bandemia with 75% neutrophils Anemia Currently followed by Dr. Isaacs hematology Plan for bone marrow biopsy/liver biopsy when stable Noted alpha-fetoprotein 6, CEA and CA-19-9 negative. PSA normal On hydroxyurea 500 mg daily prevention tumor lysis syndrome. Last uric acid 6.7 TO HAVE VAS-CATH FOR LEUKOPHORESIS AND BONE MARROW BY IR TODAY HOPEFULLY ID: Klebsiella bacteremia Pertinent cultures 04/09 - blood cultures 2 - Klebsiella pneumonia 04/09 - urine - no growth 04/11 - blood cultures 2 - no growth Currently piperacillin/tazobactam per Dr. Almanza FEN: Replace electrolytes as clinically indicated MSK: Osteoarthritis PT evaluate and treat Access - Utilize peripheral IV. Central line IN LEFT IJ PLACED BY DR PALUMBO 04-13 Prophylaxis - GI - pantoprazole - DVT - SCD/holding pharmacological prophylaxis with pending biopsies of bone/ iliac crest and liver/gallbladder plan for 04/13. TO HAVE VAS-CATH FOR LEUKOPHORESIS AND BONE MARROW HOPEFULLY TODAY Tony Pike DO Apr 13, 2017 10:54
--- NOTE | 2017-04-13 13:04 | PD.CONS ---
HPI History of Present Illness This is a 86 year old male with hx CAD, COPD who presented with weakness, fatigue, night sweats, abd pain. Onset abd pain 2 months ago and has worsened. The pain is intermittent and exacerbated by eating. He is okay with water or liquids. He has had 1 episode n/v yesterday. Admits loss 35 lbs in last 1-2 years. No blood in emesis, significant diarrhea or blood in stool, jaundice. He denies hx liver trouble, gallbladder problems or hepatitis. His last colonoscopy and EGD were 3 [address] Dr Duke, finding of polyps. He drinks ETOH occasionally. he was found to have extremely high WBC. CT showed liver mass poss gallbladder carcinoma vs HCC, US showed solid mass right liver lobe and gallbladder solid mass vs sludge, primary and secondary neoplasm liver including gallbladder carcinoma. (Priya Mckeon) PFSH Past Medical History PMH: HTN, CAD, COPD and Hyperlipidemia Past Surgical History PAST SURGICAL HISTORY: Cataract Surgery, Lens Implant, TURP x 3, ORIF clavicle (Priya Mckeon) Coded Allergies: prednisone (Unverified Adverse Reaction, Intermediate, ELEVATED BLOOD GLUCOSE, 04/09/17) Family History PAST FAMILY HISTORY: Reviewed. No h/o DM or CAD Social History PAST SOCIAL HISTORY: occasional ETOh. quit chewing tobacco 5wks ago, quit cigarettes 49y ago. no illicit drug use (Priya Mckeon) Review of Systems Constitutional: COMPLAINS OF: Diaphoretic episodes, Fatigue, Fever, Weight loss , Night Sweats Eyes: COMPLAINS OF: Blurred vision Ears, nose, mouth, throat: COMPLAINS OF: Hearing loss Respiratory: COMPLAINS OF: Cough Cardiovascular: COMPLAINS OF: Chest pain Gastrointestinal: COMPLAINS OF: Abdominal pain, Nausea, Vomiting, DENIES: Black stools, Bloody stools, Constipation, Diarrhea, Hematemesis Genitourinary: DENIES: Hematuria Musculoskeletal: DENIES: Joint Swelling Integumentary: DENIES: Jaundice Hematologic/lymphatic: DENIES: Bruising Neurologic: DENIES: Abnormal gait Psychiatric: DENIES: Confusion (Priya Mckeon) GI Exam Vitals I&O Vital Signs Date Time Temp Pulse Resp B/P (MAP) Pulse Ox O2 Delivery O2 Flow Rate FiO2 04/13/17 09:08 94 Nasal Cannula 4.00 04/13/17 08:00 97.7 113 16 94/64 (74) 97 04/13/17 08:00 95 Nasal Cannula 6.00 04/13/17 07:00 114 04/13/17 05:40 97.7 114 16 96/68 (77) 95 04/13/17 03:00 97.7 114 16 96/68 (77) 95 04/13/17 03:00 111 04/13/17 01:22 115 85/60 04/13/17 00:00 115 20 82/62 (69) 91 04/12/17 23:00 115 04/12/17 22:16 95 Nasal Cannula 6.00 04/12/17 20:00 120 20 91 04/12/17 19:40 91 Nasal Cannula 4.00 04/12/17 19:40 98.3 120 20 97/62 (74) 91 04/12/17 19:00 118 04/12/17 17:06 98.4 118 20 87/60 (69) 95 04/12/17 13:00 78 17 94/57 (69) 97 I/O 04/12/17 04/12/17 04/12/17 04/13/17 04/13/17 04/13/17 07:00 15:00 23:00 07:00 15:00 23:00 Intake Total 1680 ml 100 ml 940 ml 50 ml Output Total 1 ml 500 ml Balance 1679 ml 100 ml 440 ml 50 ml Intake Oral 480 ml 240 ml IV Total 1200 ml 100 ml 700 ml 50 ml Output Urine Total 500 ml Stool Total 1 ml # Voids 2 1 # Bowel Movements 1 1 Imaging Last Impressions Chest X-Ray 04/13/17 0106 Signed Impressions: Service Date/Time: Thursday, April 13, 2017 01:20 - CONCLUSION: Central line in excellent position. Pulmonary vascular congestion persists. Chapo Blanchard MD Lower Extremity Ultrasound 04/13/17 0000 Signed Impressions: Service Date/Time: Thursday, April 13, 2017 08:23 - CONCLUSION: No DVT is identified within either lower extremity. Gerald Fernandez MD Liver Ultrasound 04/13/17 0000 Signed Impressions: Service Date/Time: Thursday, April 13, 2017 08:44 - CONCLUSION: 1. There is a 13 cm solid mass in the right lobe of the liver surrounding the gallbladder. Gallbladder is filled with solid mass versus sludge. Differential diagnostic considerations include both primary and secondary neoplasm of the liver including gallbladder carcinoma. Percutaneous biopsy could be performed for histologic diagnosis, if desired clinically. 2. Increased echotexture of the renal parenchyma suggesting medical renal disease. 3. Bilateral pleural effusions and free fluid within the abdomen. The most recent prior CT demonstrated findings diagnostic of peritoneal disease. Gerald Fernandez MD Renal Ultrasound 04/12/17 0000 Signed Impressions: Service Date/Time: Wednesday, April 12, 2017 13:22 - CONCLUSION: Somewhat small kidneys, right echogenic. Negative for hydronephrosis. Tony Pena MD FACR Consultation 04/11/17 0000 Signed Impressions: Service Date/Time: Tuesday, April 11, 2017 00:00 - CONCLUSION: Procedure was not performed as the patient became diaphoretic and short of breath. The patient was sent immediately back to the unit. Morgan Patterson Jr., MD Chest CT 04/11/17 0000 Signed Impressions: Service Date/Time: Tuesday, April 11, 2017 13:07 - CONCLUSION: 1. Moderate right and small left pleural effusion with concomitant bibasilar atelectatic changes. 2. In addition, there is patchy airspace disease in the right perihilar distribution. This may represent focal pulmonary edema although early infiltrate cannot be excluded. 3. 2.6 cm mass lesion pedunculated off the posterior aspect of the right hepatic lobe with a faint hypodensity in the left hepatic lobe. Please see the CT report of the abdomen and pelvis for further characterization. 4. Dense atherosclerotic calcification of the coronary arteries and aortic valve with some calcification of the mitral valve anulus. Collins Page MD Abdomen/Pelvis CT 04/09/17 0000 Signed Impressions: Service Date/Time: Sunday, April 09, 2017 23:05 - CONCLUSION: 1. 9 cm mass in the right lobe liver which may reflect gallbladder carcinoma or hepatocellular carcinoma. This would be accessible to percutaneous biopsy. 2. Mild ascites Raul Rodarte MD Laboratory Test 04/12/17 16:33 04/12/17 19:58 04/12/17 22:20 04/13/17 00:15 Blood Gas Puncture Site LT RADIAL Blood Gas Patient Temperature 98.6 Blood Gas HCO3 16 mmol/L Blood Gas Base Excess -9.8 mmol/L Blood Gas Oxygen Saturation 90 % Arterial Blood pH 7.29 Arterial Blood Partial Pressure CO2 33 mmHg Arterial Blood Partial Pressure O2 72 mmHg Arterial Blood Oxygen Content 14.0 Vol % Arterial Blood Carboxyhemoglobin 0.7 % Arterial Blood Methemoglobin 1.4 % Blood Gas Hemoglobin 11.0 G/DL Oxygen Delivery Device NASAL CANNULA Blood Gas Liter Flow 4 L/M Lactic Acid Level 3.7 mmol/L Nasal Screen MRSA (PCR) MRSA NOT DETECTED White Blood Count 128.3 TH/MM3 Red Blood Count 3.74 MIL/MM3 Hemoglobin 10.4 GM/DL Hematocrit 33.0 % Mean Corpuscular Volume 88.3 FL Mean Corpuscular Hemoglobin 27.9 PG Mean Corpuscular Hemoglobin Concent 31.6 % Red Cell Distribution Width 13.7 % Platelet Count 305 TH/MM3 Mean Platelet Volume 7.3 FL CBC Comment AUTO DIFF Differential Total Cells Counted 100 Neutrophils % (Manual) 58 % Band Neutrophils % 40 % Monocytes % 1 % Neutrophils # (Manual) 125.7 TH/MM3 Differential Comment FINAL DIFF MANUAL Blastocytes 1 % Toxic Granulation 2+ Toxic Vacuolation PRESENT Dohle Bodies PRESENT Platelet Estimate NORMAL Platelet Morphology Comment NORMAL Randal Cells 1+ Acanthocytes OCC Keratocytes OCC Uric Acid 7.6 MG/DL Test 04/13/17 03:05 04/13/17 08:40 White Blood Count 132.3 TH/MM3 124.9 TH/MM3 Red Blood Count 3.69 MIL/MM3 3.60 MIL/MM3 Hemoglobin 10.3 GM/DL 9.9 GM/DL Hematocrit 32.5 % 31.6 % Mean Corpuscular Volume 88.0 FL 87.9 FL Mean Corpuscular Hemoglobin 27.9 PG 27.5 PG Mean Corpuscular Hemoglobin Concent 31.7 % 31.3 % Red Cell Distribution Width 13.9 % 13.8 % Platelet Count 321 TH/MM3 306 TH/MM3 Mean Platelet Volume 7.2 FL 7.1 FL CBC Comment AUTO DIFF Differential Total Cells Counted 100 Neutrophils % (Manual) 54 % Band Neutrophils % 44 % Monocytes % 2 % Neutrophils # (Manual) 129.7 TH/MM3 Differential Comment FINAL DIFF MANUAL Toxic Granulation 1+ Toxic Vacuolation PRESENT Dohle Bodies PRESENT Platelet Estimate NORMAL Platelet Morphology Comment NORMAL [place] Cells 1+ Prothrombin Time 12.1 SEC 12.3 SEC Prothromb Time International Ratio 1.1 RATIO 1.1 RATIO Activated Partial Thromboplast Time 33.6 SEC 35.3 SEC Fibrinogen 434 mg/dL D-Dimer Quantitative (PE/DVT) 2.37 MG/L FEU Blood Urea Nitrogen 40 MG/DL Creatinine 2.02 MG/DL Random Glucose 137 MG/DL Total Protein 5.4 GM/DL Albumin 2.6 GM/DL Calcium Level 9.5 MG/DL Phosphorus Level 5.3 MG/DL Magnesium Level 2.5 MG/DL Uric Acid 7.7 MG/DL Alkaline Phosphatase 255 U/L Aspartate Amino Transf (AST/SGOT) 103 U/L Alanine Aminotransferase (ALT/SGPT) 79 U/L Lactate Dehydrogenase 422 U/L Total Bilirubin 0.9 MG/DL Sodium Level 136 MEQ/L Potassium Level 4.6 MEQ/L Chloride Level 105 MEQ/L Carbon Dioxide Level 17.9 MEQ/L Anion Gap 13 MEQ/L Estimat Glomerular Filtration Rate 32 ML/MIN Lactic Acid Level 4.3 mmol/L Ammonia 35 MCMOL/L Total Creatine Kinase 73 U/L Troponin I 11.60 NG/ML Amylase Level 17 U/L Lipase 49 U/L Date/Time Source Procedure Growth Status 04/11/17 17:37 Blood Peripheral Aerobic Blood Culture - Preliminary NO GROWTH IN 2 DAYS Resulted 04/11/17 17:37 Blood Peripheral Anaerobic Blood Culture - Preliminary NO GROWTH IN 2 DAYS Resulted 04/09/17 21:42 Nasal Washing Influenza Types A,B Antigen (MARK) - Final NEGATIVE FOR FLU A AND B ANTIGEN.... Complete Physical Examination HEENT: PERRL; normocephalic; atraumatic; no jaundice. CHEST: wheezes CARDIAC: RRR ABDOMEN: Soft, mildly distended, RUQ TTP;hepatomegaly; bowel sounds are present in all four quadrants. EXTREMITIES: No clubbing, cyanosis, or edema. SKIN: Normal; no rash; no jaundice. SENIOR BUSINESS INTELLIGENCE ANALYST: No focal deficits; alert and oriented times three. (Priya Mckeon) Assessment and Plan Plan ASSESSMENT 86 yo male who presents with RUQ pain, hx weight loss, night sweats, elevated LFTs, leukocytosis - 9 cm liver mass per CT poss gallbladder carcinoma vs HCC; US showed liver mass as well and GB solid mass vs sludge, primary and secondary neoplasm liver including gallbladder carcinoma in differential. tumor markers not elevated. d/w radiology, liver bx advised to further characterize liver mass, r/o cholangiocarcinoma - RUQ pain, elevated LFTs - mild, not obstructive. no hx previous liver problems or hepatitis or significant drinking. cholangitis vs HCC vs gallbladder carcinoma vs other etiology. ID following, on abx. - leukocytosis - significant. hematology following, plans vascath for leukopheresis; bone marrow biopsy. ID following. PLAN - liver bx, timing TBD, poss at same time as bone marrow. d/w radiology. - await bone marrow BX - abx per ID - supportive care - further recs as case unfolds This pt seen by myself and Dr Lara and this note is written on his behalf (Priya Mckeon) Physician Comments Patient seen and examined Agree with above Continue with current supportive care Monitor labs Case discussed with radiology and they recommend liver biopsy at this point and this to be scheduled (Chandra Lara MD) Priya Mckeon Apr 13, 2017 13:04 Chandra Lara MD Apr 13, 2017 23:53
[2017-04-13] MEDS ORDERED: HEPARIN SODIUM - IV 10,000 UNITS/10 ML VIAL IV PUSH PRN ×2 (13:45)
--- NOTE | 2017-04-13 13:57 | RADRPT ---
EXAM DATE/TIME: 04/13/2017 13:40 [facility] COMPARISON: CHEST SINGLE AP, April 13, 2017, 1:20. INDICATIONS : Post right side thoracentesis. MEDICAL HISTORY : Chronic obstructive pulmonary disease. Myocardial infarction. Hypertension. skin cancer SURGICAL HISTORY : None. ENCOUNTER: Initial ACUITY: 4 - 6 days PAIN SCORE: 0/10 LOCATION: Bilateral chest FINDINGS: Portable AP expiratory view of the chest demonstrates a normal-sized cardiac silhouette. The right pl eural effusion has resolved since the earlier examination and there is improved aeration at the right lung base. No pneumothorax is visualized. There is stable mild pleural-parenchymal opacity at the le ft lung base. CONCLUSION: Resolution of the right pleural effusion with improved aeration at the right lung base. No pneumothor ax is present. Gerald Fernandez MD on April 13, 2017 at 13:55 Board Certified Radiologist. This report was verified electronically.
--- NOTE | 2017-04-13 14:06 | EKG ---
Date Performed: 04/13/2017 Time Performed: 04:43:26 PTAGE: 86 years EKG: Sinus tachycardia with PAC(s) Left axis deviation IV conduction defect Lateral T wave gutierrez es are nonspecific Abnormal ECG PREVIOUS TRACING : 04/12/2017 22.18 Compared to prior tracing no significant change DOCTOR: Cam Ingram Interpretating Date/Time 04/13/2017 14:03:20
--- NOTE | 2017-04-13 14:13 | EKG ---
Date Performed: 04/12/2017 Time Performed: 22:18:28 PTAGE: 86 years EKG: Sinus rhythm Left axis deviation Inferior infarct - age undetermined Anterior infarct - age undetermined Lateral T wave changes are nonspecific Low QRS voltages in precordial leads Abnormal ECG PREVIOUS TRACING : 04/09/2017 21.40 Compared to prior tracing no significant change DOCTOR: Cam Ingram Interpretating Date/Time 04/13/2017 14:07:59
--- NOTE | 2017-04-13 14:40 | RADRPT ---
EXAM DATE/TIME: 04/13/2017 12:57 [facility] COMPARISON: CHEST EXPIRATION ONLY, April 13, 2017, 13:40. INDICATIONS : Right pleural effusion. MEDICAL HISTORY : Myocardial infarction. Hypercholesterolemia. Rheumatoid arthritis. Glaucoma. Peripheral neuropathy. C hest pain. Hyperlipidemia. Irregular heartbeat. HTN. COPD. Sleep apnea. Dyspnea. GERD. Esophageal str icture/dilation. Enlarged prostate. Arthritis. Skin cancer. Anxiety. SURGICAL HISTORY : Cataract extraction with lens implants. Right eye laser surgery. TURP. Right wrist benign tumor remov ed. Blood transfusions. ENCOUNTER: Initial ACUITY: 1 day PAIN SCORE: 0/10 LOCATION: Right chest FLUID: Total volume of 1,000 cc of clear, yellow fluid was removed. Fluid was sent to lab for ordered studies. TECHNIQUE: 1. Ultrasound guidance for thoracentesis. 2. Thoracentesis. The risks, benefits, and alternatives to ultrasound guided thoracentesis were explained to the patien t in lay simple terms, including the risk of bleeding and infection. Written and verbal informed con sent was obtained. Appropriate area for thoracentesis was marked under ultrasound guidance with the patient in the uprig ht position. Overlying skin was prepped and draped in the usual sterile fashion and with local anest hetic, a dermatotomy was made with an 11 blade scalpel. A 6 Lao thoracentesis catheter was placed in the pleural space and fluid was removed. Catheter was then removed and a sterile dressing applie d. There were no immediate complications. The patient tolerated the procedure well and the left the ultrasound suite in stable condition. Chest radiograph is to be obtained. CONCLUSION: Uncomplicated ultrasound guided right thoracentesis. Morgan Patterson Jr., MD on April 13, 2017 at 14:37 Board Certified Radiologist. This report was verified electronically.
--- NOTE | 2017-04-13 14:54 | PD.RAD ---
Post Procedure Progress Note Pre Procedure Diagnosis: (1) Leukocytosis (2) Liver mass Post Procedure Diagnosis: (1) Leukocytosis (2) Liver mass Procedure Date: Apr 13, 2017 Supervising Radiologist: Lloyd Pena Estimated blood loss: 3cc Anesthesia: Local Plan of Activity Patient to Unit: Nursing Unit Patient Condition: Poor Additional Comments: Right Ij vascath placed without difficulty. Catheter in good position OK for use See PACS Report for procedural detail/treatment Lloyd Pena MD Apr 13, 2017 14:54
[2017-04-13 14:59] LABS: PLEURAL FLUID LYMPHS 3 %
[2017-04-13] MEDS ORDERED: HEPARIN SODIUM - IV 2,000 UNITS/2 ML VIAL IV FLUSH PRN (15:00)
--- NOTE | 2017-04-13 15:54 | ECHRPT ---
Indication: CONCLUSIONS Mildly dilated left ventricle. The left ventricular systolic function is severely reduced with an estimated ejection fraction of 25 %. Wall thickness is normal. There is diffuse global hypokinesis. The left atrial size is moderately dilated. The right atrial size is moderately dilated. Mild RV dilatation and systolic dysfunction. Moderate thickening of the mitral valve leaflets. Moderate mitral annular calcification. Mild to moderate mitral regurgitation. Moderate thickening of the aortic valve leaflets. Mild aortic valve regurgitation. Mild to moderate aortic valve stenosis. There is mild tricuspid valve regurgitation. The estimated pulmonary arterial pressure is 36 mmHg. BP: 96 / 68 HR: Rhythm: Sinus MEASUREMENTS (Male / Female) Normal Values Technical Quality:Technically difficult study 2D ECHO LV Diastolic Diameter PLAX 5.9 cm 4.2 - 5.9 / 3.9 - 5.3 cm LV Systolic Diameter PLAX 5.5 cm IVS Diastolic Thickness 0.8 cm 0.6 - 1.0 / 0.6 - 0.9 cm LVPW Diastolic Thickness 0.8 cm 0.6 - 1.0 / 0.6 - 0.9 cm LV Relative Wall Thickness 0.3 LVOT Diameter 2.1 cm Aortic Root Diameter 3.3 cm LA Systolic Diameter LX 3.8 cm 3.0 - 4.0 / 2.7 - 3.8 cm DOPPLER AV Peak Velocity 233.0 cm/s AV Peak Gradient 21.7 mmHg AV Mean Gradient 14.0 mmHg AV Velocity Time Integral 45.1 cm LVOT Peak Velocity 68.9 cm/s LVOT Peak Gradient 1.9 mmHg LVOT Velocity Time Integral 12.1 cm AV Area Cont Eq vti 0.9 cm AV Area Cont Eq pk 1.0 cm MV Peak Velocity 220.0 cm/s MV Peak Gradient 19.4 mmHg MV Mean Velocity 106.0 cm/s MV Mean Gradient 6.0 mmHg Mitral E Point Velocity 180.0 cm/s LV E' Lateral Velocity 17.6 cm/s Mitral E to LV E' Lateral Ratio 10.2 LV E' Septal Velocity 7.7 cm/s Mitral E to LV E' Septal Ratio 23.4 TR Peak Velocity 257.0 cm/s TR Peak Gradient 26.4 mmHg Right Atrial Pressure 10.0 mmHg Pulmonary Artery Systolic Pressu 36.4 mmHg Right Ventricular Systolic Press 36.4 mmHg PV Peak Velocity 51.1 cm/s PV Peak Gradient 1.0 mmHg FINDINGS LEFT VENTRICLE Mildly dilated left ventricle. The left ventricular systolic function is severely reduced with an estimated ejection fraction of 2 5%. Wall thickness is normal. There is diffuse global hypokinesis. RIGHT VENTRICLE Mild right ventricular dilatation and systolic dysfunction. LEFT ATRIUM The left atrial size is moderately dilated. RIGHT ATRIUM The right atrial size is moderately dilated. ATRIAL SEPTUM Normal atrial septal thickness without atrial level shunting by limited color doppler interrogation. AORTA The aortic root and proximal ascending aorta are normal in size on limited imaging. MITRAL VALVE Moderate thickening of the mitral valve leaflets. Moderate mitral annular calcification. Mitral valve mean gradient is 6 mmHg. [id number] mitral valve regurgitation. AORTIC VALVE Moderate thickening of the aortic valve leaflets. Mild aortic valve regurgitation. Mild to moderate aortic valve stenosis. TRICUSPID VALVE There is mild tricuspid valve regurgitation. The estimated pulmonary arterial pressure is 36 mmHg. PULMONARY VALVE The pulmonary valve is not well visualized. VESSELS The inferior vena cava is normal in size. PERICARDIUM No pericardial effusion. Josie Cohen MD, FACC Edited by: [employer] CV Chief Bank Examiner (Electronically Signed) Final Date:13 April 2017 10:20 Amended: 13 April 2017 15:53
--- NOTE | 2017-04-13 16:21 | RADRPT ---
EXAM DATE/TIME: 04/13/2017 14:00 [facility] COMPARISON: No previous studies available for comparison. INDICATIONS : Patient with a history of worsening dyspnea, needs plasma phoresis. MEDICAL HISTORY : HTN CAD COPD Hyperlipidemia SURGICAL HISTORY : Cataract surgery Lens Implant TURP ENCOUNTER: Initial ACUITY: 4-6 days PAIN SCORE: 0/10 FLUORO TIME: 0.4 minutes IMAGE SERIES: 1 ACCESS: Right internal jugular vein DEVICE(S): 1.) 14 Vincentian dual lumen 15 cm Schon catheter PROCEDURE : 1. Ultrasound guided venipuncture. 2. Fluoroscopic guidance. 3. Central line placement. The risks, benefits and alternatives to the procedure were explained and verbal and written consent w as obtained. The site was prepped in sterile fashion. Full sterile technique was used, including ca p, mask, sterile gloves and gown and a large sterile sheet. Hand hygiene and 2% chlorhexidine prep w as utilized per protocol for cutaneous antisepsis with appropriate dry time for site. Sterile gel an d sterile probe cover were utilized for ultrasound guidance. The skin and subcutaneous tissues were infiltrated with local anesthetic solution. A suitable site a cabrera the vein was selected with ultrasound and fluoroscopic guidance. A small incision was made. Th e vein was accessed under direct ultrasound visualization using the micropuncture technique. The suman ropuncture set was exchanged for a 0.035 wire. The tract was dilated. The catheter was advanced int o position under direct fluoroscopic visualization. The catheter was fixed in place with suture and a sterile dressing was applied. The patient tolerated the procedure well and there were no complications. CONCLUSION: Uncomplicated line placement as above. Lloyd Pena MD on April 13, 2017 at 16:19 Board Certified Radiologist. This report was verified electronically.
--- NOTE | 2017-04-13 16:26 | HHI.CCPN ---
Subjective Remarks/Hospital Course 04/12: This is a 86-year-old male. Date of admission 04/10/2017. Date of consultation 04/12/2017. Past medical history includes coronary disease , hypertension, dyslipidemia, COPD, arthritis, PRO on CPAP at night, BPH, gastroesophageal reflux disease and glaucoma. Patient originally presented to [facility] with chief complaint of generalized weakness and recurrent falls for several weeks duration worse on day of admission.. Positive for fever chills and night sweats. Hemodynamically stable. On admission, abnormal laboratory included elevated white cells of 85.2, previously 9.3 on 10/07/15. Bands 22%. Acute kidney injury, elevated lactate and elevated LFTs. 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 isaacs hematology was consulted for possible bone marrow biopsy/ coronary need biopsy of liver/gallbladder mass. Blood cultures 2 were drawn on that day as well. They're currently going Klebsiella pneumonia. She has been on piperacillin/tazobactam which is been continued by Dr. Almanza/infectious disease in consultation. CT abdomen/pelvis again revealed a 9 mm right lobe liver mass. Gallbladder versus paracytic or in the differential. CT thorax revealed bilateral pleural effusions 2.6 mass the right head of liver. Renal ultrasound revealed right echogenic kidneys. AFP, CEA and CA 19/9 normal. LDH elevated. Uric acid around 3. On 04/12, patient has had borderline blood pressures and was transferred to the intensive care unit. Lactate is currently 3.7. Patient is tachycardic with a mean arterial pressure greater than 65. Creatinine slightly rising long white blood cells. Patient did not get bone marrow or liver biopsy due to shortness of breath. Patient received 15 L in with inaccurate outputs document. 04/13: Resting in bed comfortably on nasal cannula. On phenylephrine 40 mics per minute for hypotension. Objective Vital Signs Date Time Temp Pulse Resp B/P (MAP) Pulse Ox O2 Delivery O2 Flow Rate FiO2 04/13/17 15:00 112 04/13/17 13:10 98.5 28 86/60 (69) 94 04/13/17 09:08 Nasal Cannula 4.00 04/10/17 10:01 21 Intake and Output 04/13/17 04/13/17 04/14/17 08:00 16:00 00:00 Intake Total 940 ml 50 ml Output Total 500 ml Balance 440 ml 50 ml Result Diagram: 04/13/17 0840 04/13/17 0305 Other Results Laboratory Tests Test 04/12/17 16:33 Blood Gas Puncture Site LT RADIAL Blood Gas Patient Temperature 98.6 Blood Gas HCO3 16 mmol/L (22-26) Blood Gas Base Excess -9.8 mmol/L (-2-2) Blood Gas Oxygen Saturation 90 % (90-100) Arterial Blood pH 7.29 (7.380-7.420) Arterial Blood Partial Pressure CO2 33 mmHg (38-42) Arterial Blood Partial Pressure O2 72 mmHg (61-120) Arterial Blood Oxygen Content 14.0 Vol % (12.0-20.0) Arterial Blood Carboxyhemoglobin 0.7 % (0-4) Arterial Blood Methemoglobin 1.4 % (0-2) Blood Gas Hemoglobin 11.0 G/DL (12.0-16.0) Oxygen Delivery Device NASAL CANNULA Blood Gas Liter Flow 4 L/M Imaging Last Impressions Renal Ultrasound 04/12/17 0000 Signed Impressions: Service Date/Time: Wednesday, April 12, 2017 13:22 - CONCLUSION: Somewhat small kidneys, right echogenic. Negative for hydronephrosis. Tony Pena MD FACR Chest X-Ray 04/12/17 0000 Signed Impressions: Service Date/Time: Wednesday, April 12, 2017 13:05 - CONCLUSION: 1. No pneumothorax. 2. Worsening bibasilar consolidations. 3. Tiny effusions. Morgan Patterson Jr., MD Consultation 04/11/17 0000 Signed Impressions: Service Date/Time: Tuesday, April 11, 2017 00:00 - CONCLUSION: Procedure was not performed as the patient became diaphoretic and short of breath. The patient was sent immediately back to the unit. Morgan Patterson Jr., MD Chest CT 04/11/17 0000 Signed Impressions: Service Date/Time: Tuesday, April 11, 2017 13:07 - CONCLUSION: 1. Moderate right and small left pleural effusion with concomitant bibasilar atelectatic changes. 2. In addition, there is patchy airspace disease in the right perihilar distribution. This may represent focal pulmonary edema although early infiltrate cannot be excluded. 3. 2.6 cm mass lesion pedunculated off the posterior aspect of the right hepatic lobe with a faint hypodensity in the left hepatic lobe. Please see the CT report of the abdomen and pelvis for further characterization. 4. Dense atherosclerotic calcification of the coronary arteries and aortic valve with some calcification of the mitral valve anulus. Collins Page MD Abdomen/Pelvis CT 04/09/17 0000 Signed Impressions: Service Date/Time: Sunday, April 09, 2017 23:05 - CONCLUSION: 1. 9 cm mass in the right lobe liver which may reflect gallbladder carcinoma or hepatocellular carcinoma. This would be accessible to percutaneous biopsy. 2. Mild ascites Raul Rodarte MD Objective Remarks GENERAL: 86-year-old male, resting in bed in no acute distress SKIN: Warm and dry. HEAD: Atraumatic. Normocephalic. EYES: Pupils equal and round. No scleral icterus. No injection or drainage. ENT: No nasal bleeding or discharge. Mucous membranes pink and moist. NECK: Trachea midline. No JVD. CARDIOVASCULAR: Tachycardia, RR. S1, S2 withoutmurmur RESPIRATORY: Diminished breath sounds. Few crackles in bases bilaterally. No wheeze.. Breath sounds equal bilaterally. GASTROINTESTINAL: Abdomen soft, sightly protuberant. Nontender. Hypoactive bowel sounds appreciated. MUSCULOSKELETAL: Extremities 1+ below the knee bilateral lower extremity edema. No obvious deformities. NEUROLOGICAL: Awake and alert. No obvious cranial nerve deficits. Motor grossly within normal limits. Five out of 5 muscle strength in the arms and legs. Normal speech. PSYCHIATRIC: Appropriate mood and affect; insight and judgment normal. Procedures LEFT IJ CENTRAL LINE 11-[address] PALUMBO A/P Assessment and Plan Neuro/Psych: History of cataract with IOC Glaucoma Acetaminophen 650 mg every 6 hours when necessary fever/pain 1-10 Currently not on any medications for underlying disorder CV: Severe sepsis secondary to Klebsiella bacteremia Lactic acidosis Currently on sterile water with 3 ampules sodium bicarbonate at 70 cc an hour Phenylephrine for pressor support to be titrated to maintain MAP greater than 65 Serial lactates until clear Check 2-D echocardiogram Resp: Acute respiratory insufficiency PRO on CPAP COPD Nasal cannula to maintain saturations greater than equal to 90% currently on 6 L Incentive spirometry while awake Albuterol/ipratropium aerosols every 6 hours with albuterol aerosols every 2 hours when necessary dyspnea On CPAP at night + [address] thorax revealed bilateral pleural effusion right greater than left. 2.6 cm pedunculated mass right posterior lobe liver. Possible upper airway edema versus infiltrate Per IR right pleural effusion too small to tap. GI: 9 mm right liver mass Gastroesophageal reflux disease Esophageal dilatation by history Currently on heart healthy diet CT abdomen/pelvis revealed this 9 mm mass right lobe of liver. Currently on famotidine 20 mg IV daily for GI prophylaxis. On omeprazole 20 mg daily at home Docusate sodium/senna 1 tablet twice a day for bowel regimen Follow LFTs. GI consult requested for further evaluation of liver/gallbladder mass with possible cholangitis as source of sepsis. : History of TURP 3 BPH Chen catheter currently not indicated Endo: Sliding-scale insulin if indicated to maintain euglycemia Renal: Acute kidney injury - creatinine 1.57 Renal ultrasound revealed right echogenic kidney. Urine electrolytes and eosinophils pending Dr. Pettit, nephrology following Monitor urine output Accurate I's and O's Receiving sodium bicarbonate 650 mg by mouth [address] Dr. Pettit Heme: Leukocytosis - 25% bandemia with 75% neutrophils Suspected primary hematologic disorder causing leukocytosis Anemia Currently followed by Dr. Isaacs hematology Plan for bone marrow biopsy/liver biopsy when stable Noted alpha-fetoprotein 6, CEA and CA-19-9 negative. PSA normal On hydroxyurea 500 mg daily prevention tumor lysis syndrome. Hemonc planning leukopheresis ID: Septic shock Klebsiella bacteremia Pertinent cultures 04/09 - blood cultures 2 - Klebsiella pneumonia 04/09 - urine - no growth 04/11 - blood cultures 2 - no growth Currently piperacillin/tazobactam per Dr. Almanza. Suspect biliary source. FEN: Replace electrolytes as clinically indicated MSK: Osteoarthritis PT evaluate and treat Access -Left IJ central line placed 04/12 Prophylaxis - GI - pantoprazole - DVT - SCD/holding pharmacological prophylaxis with pending biopsies of bone/ iliac crest and liver/gallbladder plan for 04/13. Discussed with family and patient at bedside. Discussed with Heme-onc NAVEED as well as GI James Gross MD Apr 13, 2017 16:26
[2017-04-13 19:13] LABS: BLOOD, URINE TRACE (NEG); COMMENT (UR) CULTURE INDICATED; CULTURE IF INDICATED CULTURE INDICATED; GLUCOSE,URINE TRACE mg/dL (NEG); KETONE, URINE 10 mg/dL (NEG); MUCUS URINE FEW /lpf (OCC); NITRITE,URINE NEG (NEG); PH, URINE 5.5 (5.0-8.5); SQUAMOUS EPITHELIAL CELL URINE <1 /hpf (0-5); URINE COLOR YELLOW (YELLW/STRAW)
[2017-04-13] MEDS ORDERED: CALCIUM GLUCONATE INJ 3 GM in SODIUM CHLOR 0.9% 250 ML INJ 150 ML IV SCH (20:00)
[2017-04-13] MEDS ORDERED: HEPARIN SODIUM - 10,000 UNITS/ML 1ML VIAL IV FLUSH PRN (20:00)
[2017-04-13] MEDS ORDERED: ANTICOAGULANT CITRATE DEXTROSE SOLN-A 1L OTHER SCH (20:00)
[2017-04-13] MEDS ORDERED: HEPARIN SODIUM - 1000 UNITS/ML 10 ML VIAL IV FLUSH PRN (20:00)
[2017-04-14] MEDS: SODIUM CHLORIDE 0.9% FLUSH 10 ML FLUSH IV FLUSH SCH ×3 (01:27→09:00)
[2017-04-14] MEDS: PIPERACIL-TAZO 3.375 GM PREMIX 50 ML IV SCH ×3 (01:27→12:00)
[2017-04-14 02:20] VITALS: O2SAT 95
[2017-04-14] MEDS: RESP: ALBUTEROL 2.5 MG/IPRATROPIUM 0.5 MG NEB (SCH) NEB ×2 (03:26→09:19)
[2017-04-14 04:00] VITALS: PULSE 110
[2017-04-14] MEDS: CHLORHEXIDINE GLUCONATE 2 % 1 PACK (2 CLOTHS) TOP SCH (04:00)
--- NOTE | 2017-04-14 04:20 | RADRPT ---
EXAM DATE/TIME: 04/14/2017 03:45 This report includes an Addendum and supersedes previous reports for this exam. [facility] COMPARISON: CHEST SINGLE AP, April 13, 2017, 1:20. INDICATIONS : Short of breath. MEDICAL HISTORY : Chronic obstructive pulmonary disease. Gastroesophageal reflux disease. Myocardial infarction.Hyperte nsion. Skin cancer. SURGICAL HISTORY : None. ENCOUNTER: Subsequent ACUITY: 4 - 6 days PAIN SCORE: 0/10 LOCATION: Bilateral chest FINDINGS: A single view of the chest demonstrates the interval placement of right IJ vas catheter. Patchy airsp tejas disease remains. Mild pulmonary vascular congestion. Left-sided chest tube is unchanged.. The ca rdiomediastinal contours are unremarkable. Osseous structures are intact. CONCLUSION: New right sided IJ Vas-Cath. Patchy airspace disease right worse and left. Chapo Blanchard MD on April 14, 2017 at 4:19 Board Certified Radiologist. This report was verified electronically. ADDENDUM: No left-sided chest tube is present. It is a radio opaque line external to the patient that when acco mpanying the course of the rib appears to be a chest tube. Chapo Blanchard MD on April 14, 2017 at 5:45 Board Certified Radiologist. This report was verified electronically.
[2017-04-14 05:00] VITALS: BP 95/68; PULSE 106; RESP 26; TEMP 98.2
[2017-04-14 05:31] LABS: AUTOMATED NEUTROPHIL # 99.9 TH/MM3 (1.8-7.7); BASOPHIL # 0.3 TH/MM3 (0-0.2); BASOPHIL % 0.3 % (0.0-2.0); EOSINOPHIL # 0.2 TH/MM3 (0-0.4); EOSINOPHIL % 0.2 % (0.0-4.0); HEMATOCRIT 33.3 % (39.0-51.0); LYMPH % 1.1 % (9.0-44.0); LYMPHOCYTE # 1.1 TH/MM3 (1.0-4.8); MEAN CELL VOLUME 88.1 FL (80.0-100.0); MEAN CORPUSCULAR HEMOGLOBIN 28.3 PG (27.0-34.0); MEAN CORPUSCULAR HGB CONC 32.2 % (32.0-36.0); MONO % 0.5 % (0.0-8.0); NEUT % 97.9 % (16.0-70.0); PLATELET COUNT 192 TH/MM3 (150-450); RED BLOOD COUNT 3.78 MIL/MM3 (4.50-5.90); RED CELL DISTRIBUTION WIDTH 13.9 % (11.6-17.2)
[2017-04-14 05:34] LABS: HEMO FLAGS AUTO DIFF
[2017-04-14] MEDS: FAMOTIDINE 20 MG/2 ML VIAL IV PUSH SCH (05:42)
[2017-04-14 05:59] LABS: APTT (PATIENT) 38.5 SEC (24.3-30.1); INTERNATIONAL NORMALIZED RATIO 1.2 RATIO; PROTHROMBIN TIME - PATIENT 12.9 SEC (9.8-11.6)
[2017-04-14 06:07] LABS: ALKALINE PHOSPHATASE 238 U/L (45-117); ALT (GPT) 67 U/L (12-78); ANION GAP 12 MEQ/L (5-15); AST (GOT) 89 U/L (15-37); BICARBONATE 24.4 MEQ/L (21.0-32.0); BLOOD UREA NITROGEN 55 MG/DL (7-18); CHLORIDE 102 MEQ/L (98-107); FREE T4 1.26 NG/DL (0.76-1.46); GLOMERULAR FILTRATION RATE 24 ML/MIN (>89); LDH SERUM 443 U/L (87-241); MAGNESIUM 2.6 MG/DL (1.5-2.5); SODIUM (NA) 138 MEQ/L (136-145); URIC ACID 3.3 MG/DL (2.6-7.2)
[2017-04-14 07:00] VITALS: BP 100/73; PULSE 105; PULSE 73; RESP 20; TEMP 97.9; O2SAT 98
[2017-04-14] MEDS: SODIUM BICARBONATE 8.4% INJ 150 MEQ in WATER STERILE FOR INJ 850 ML IV SCH (07:14)
--- NOTE | 2017-04-14 07:28 | PD.CARD.PN ---
Subjective Subjective Remarks Pt without complaints Objective Medications Current Medications Medications (Trade) Dose Ordered Sig/Tyler Route Start Time Stop Time Status Last Admin (Kenalog 0.1% Lotion) 1 applic TID TOPICAL 04/10/17 09:00 04/12/17 09:00 (Duoneb Neb) 1 ampule Q6HR NEB NEB 04/11/17 22:30 04/14/17 03:26 (Hydrea) 500 mg TID PO 04/12/17 09:00 04/13/17 18:05 Piperacillin Sod/ Tazobactam Sod 50 ml @ 100 mls/hr Q6H IV 04/12/17 12:00 04/14/17 05:41 (NS Flush) 2 ml UNSCH PRN IV FLUSH 04/12/17 21:45 (NS Flush) 2 ml BID IV FLUSH 04/13/17 09:00 04/14/17 01:27 (Tylenol) 650 mg Q6H PRN PO 04/12/17 21:45 (Pepcid Inj) 20 mg DAILY@0600 IV PUSH 04/13/17 06:00 04/14/17 05:42 (Zofran Inj) 4 mg Q6H PRN IV PUSH 04/12/17 21:45 (Albuterol Neb) 2.5 mg Q2HR NEB PRN INH 04/12/17 21:45 Miscellaneous Information 1 Q361D XX 04/12/17 21:45 (Chlorhexidine 2% Cloth) 3 pack Taper DAILY@04 TOP 04/13/17 04:00 04/09/18 03:59 04/14/17 04:00 (Chlorhexidine 2% Cloth) 3 pack UNSCH PRN TOP 04/12/17 21:45 (Marry-Colace) 1 tab BID PO 04/13/17 09:00 04/13/17 10:02 (Milk Of Magnesia Liq) 30 ml Q12H PRN PO 04/12/17 21:45 (Senokot) 17.2 mg Q12H PRN PO 04/12/17 21:45 (Dulcolax Supp) 10 mg DAILY PRN RECTAL 04/12/17 21:45 (Lactulose Liq) 30 ml DAILY PRN PO 04/12/17 21:45 Sodium Bicarbonate 150 meq/Sterile Water 1,000 ml @ 70 mls/hr [id number] IV 04/14/17 00:00 04/14/17 07:14 Phenylephrine HCl 160 mg/Dextrose 500 ml @ 7.5 mls/hr TITRATE PRN IV 04/13/17 01:00 04/13/17 01:22 (Brethine Inj) 1 mg UNSCH PRN SQ 04/13/17 00:45 (NS Flush) DAILY IV FLUSH 04/13/17 09:00 04/13/17 09:00 (NS Flush) UNSCH PRN IV FLUSH 04/13/17 01:15 (Zyloprim) 100 mg DAILY PO 04/13/17 09:00 04/13/17 10:02 (Aspirin Chew) 81 mg DAILY PO 04/13/17 09:00 (Heparin Inj) 5,000 units UNSCH PRN IV PUSH 04/13/17 13:45 (Heparin Inj) 2,500 units UNSCH PRN IV PUSH 04/13/17 13:45 04/13/17 23:18 Heparin Sodium/ Dextrose 250 ml @ 9 mls/hr TITRATE PRN IV 04/13/17 08:00 (NS Flush) UNSCH PRN IV FLUSH 04/13/17 15:00 (Heparin Inj) UNSCH PRN IV FLUSH 04/13/17 15:00 Calcium Gluconate 3 gm/Sodium Chloride 180 ml @ 90 mls/hr DAILY@1999 IV 04/13/17 20:00 04/13/17 20:34 (Acd Formula Inj) 1,000 ml DAILY@1999 OTHER 04/13/17 20:00 04/13/17 20:35 (Heparin Inj) 5,000 units UNSCH PRN IV FLUSH 04/13/17 20:00 (Heparin Inj) 1,000 units UNSCH PRN IV FLUSH 04/13/17 20:00 Vital Signs / I&O Vital Signs Date Time Temp Pulse Resp B/P (MAP) Pulse Ox O2 Delivery O2 Flow Rate FiO2 04/14/17 05:00 98.2 106 26 95/68 (77) 04/14/17 04:00 94 Simple Mask 8.00 04/14/17 04:00 110 04/14/17 02:20 95 35 04/14/17 01:10 95 Simple Mask 8.00 04/13/17 23:00 100 Nasal Cannula 6.00 04/13/17 23:00 97.9 109 18 115/81 (92) 04/13/17 23:00 109 04/13/17 19:42 100 Nasal Cannula 6.00 04/13/17 19:31 97.7 112 22 92/59 (70) 04/13/17 19:31 110 04/13/17 17:10 96 Nasal Cannula 4.00 04/13/17 16:00 98.0 105 18 87/62 (70) 04/13/17 16:00 94 Nasal Cannula 6.00 04/13/17 15:35 81 04/13/17 15:00 112 04/13/17 15:00 87 04/13/17 14:00 81 04/13/17 13:10 98.5 113 28 86/60 (69) 94 04/13/17 13:00 86 04/13/17 11:00 95 Nasal Cannula 6.00 04/13/17 09:08 94 Nasal Cannula 4.00 04/13/17 08:00 97.7 113 16 94/64 (74) 97 04/13/17 08:00 95 Nasal Cannula 6.00 I/O 04/13/17 04/13/17 04/13/17 04/14/17 04/14/17 04/14/17 07:00 15:00 23:00 07:00 15:00 23:00 Intake Total 940 ml 50 ml 300 ml 1245 ml Output Total 500 ml 300 ml Balance 440 ml 50 ml 300 ml 945 ml Intake Oral 240 ml 300 ml IV Total 700 ml 50 ml 300 ml 945 ml Output Urine Total 500 ml 300 ml # Bowel Movements 1 2 Physical Exam GENERAL: Well developed, well nourished. No acute distress. HEENT: Jugular venous pressure is normal. CHEST: Lungs wheeze to auscultation bilaterally. Unlabored respiratory effort. CARDIAC: Regular rate and rhythm without S3, S4, or murmur. ABDOMEN: Soft, nontender, no hepatosplenomegaly. Bowel sounds present. EXTREMITIES: No clubbing, cyanosis, or edema. Laboratory Laboratory Tests Test 04/13/17 08:40 04/13/17 13:33 04/13/17 15:40 04/13/17 17:35 White Blood Count 124.9 TH/MM3 Red Blood Count 3.60 MIL/MM3 Hemoglobin 9.9 GM/DL Hematocrit 31.6 % Mean Corpuscular Volume 87.9 FL Mean Corpuscular Hemoglobin 27.5 PG Mean Corpuscular Hemoglobin Concent 31.3 % Red Cell Distribution Width 13.8 % Platelet Count 306 TH/MM3 Mean Platelet Volume 7.1 FL Prothrombin Time 12.3 SEC Prothromb Time International Ratio 1.1 RATIO Activated Partial Thromboplast Time 35.3 SEC Pleural Fluid WBC 277 /MM3 Pleural Fluid RBC 207 /MM3 Pleural Fluid Neutrophils 91 % Pleural Fluid Lymphocytes 3 % Pleural Fluid Monocytes 5 % Pleural Fluid Histiocytes 1 % Pleural Fluid LDH 128 U/L Urine Color YELLOW Urine Turbidity CLOUDY Urine pH 5.5 Urine Specific [place] 1.044 Urine Protein 30 mg/dL Urine Glucose (UA) TRACE mg/dL Urine Ketones 10 mg/dL Urine Occult Blood TRACE Urine Nitrite NEG Urine Bilirubin NEG Urine Urobilinogen LESS THAN 2.0 MG/DL Urine Leukocyte Esterase SMALL Urine RBC 7 /hpf Urine WBC 15 /hpf Urine Squamous Epithelial Cells <1 /hpf Urine Mucus FEW /lpf Microscopic Urinalysis Comment CULTURE INDICATED Troponin I 13.40 NG/ML Test 04/14/17 05:15 04/14/17 05:42 White Blood Count 102.0 TH/MM3 Red Blood Count 3.78 MIL/MM3 Hemoglobin 10.7 GM/DL Hematocrit 33.3 % Mean Corpuscular Volume 88.1 FL Mean Corpuscular Hemoglobin 28.3 PG Mean Corpuscular Hemoglobin Concent 32.2 % Red Cell Distribution Width 13.9 % Platelet Count 192 TH/MM3 Mean Platelet Volume 7.1 FL Neutrophils (%) (Auto) 97.9 % Lymphocytes (%) (Auto) 1.1 % Monocytes (%) (Auto) 0.5 % Eosinophils (%) (Auto) 0.2 % Basophils (%) (Auto) 0.3 % Neutrophils # (Auto) 99.9 TH/MM3 Lymphocytes # (Auto) 1.1 TH/MM3 Monocytes # (Auto) 0.5 TH/MM3 Eosinophils # (Auto) 0.2 TH/MM3 Basophils # (Auto) 0.3 TH/MM3 CBC Comment AUTO DIFF Prothrombin Time 12.9 SEC Prothromb Time International Ratio 1.2 RATIO Activated Partial Thromboplast Time 38.5 SEC Fibrinogen 357 mg/dL Blood Urea Nitrogen 55 MG/DL Creatinine 2.54 MG/DL Random Glucose 105 MG/DL Total Protein 4.7 GM/DL Albumin 2.2 GM/DL Calcium Level 9.8 MG/DL Phosphorus Level 4.5 MG/DL Magnesium Level 2.6 MG/DL Uric Acid 3.3 MG/DL Alkaline Phosphatase 238 U/L Aspartate Amino Transf (AST/SGOT) 89 U/L Alanine Aminotransferase (ALT/SGPT) 67 U/L Lactate Dehydrogenase 443 U/L Total Bilirubin 1.0 MG/DL Sodium Level 138 MEQ/L Potassium Level 4.0 MEQ/L Chloride Level 102 MEQ/L Carbon Dioxide Level 24.4 MEQ/L Anion Gap 12 MEQ/L Estimat Glomerular Filtration Rate 24 ML/MIN Troponin I 19.30 NG/ML Free Thyroxine 1.26 NG/DL Thyroid Stimulating Hormone 3rd Gen 1.910 uIU/ML Urine Eosinophils NONE SEEN /HPF Urine Random Creatinine 156.4 MG/DL Urine Random Sodium LESS THAN 5 MEQ/L Imaging Last 24 hours Impressions Chest X-Ray 04/14/17 0000 Signed Impressions: Service Date/Time: Friday, April 14, 2017 03:45 - CONCLUSION: New right sided IJ Vas-Cath. Patchy airspace disease right worse and left. Chapo Blanchard MD ADDENDUM: No left-sided chest tube is present. It is a radio opaque line external to the patient that when accompanying the course of the rib appears to be a chest tube. Chapo Blanchard MD Assessment and Plan Assessment and Plan NSTEMI- primary vs Secondary - ECHO EF 25%, global HK suggests secondary - he is remains a poor/not a revascularization candidate with the sepsis and renal insufficiency. -BB and MARGOT contraindicated with large amounts of pressors -aspirin and heparin may need to be held for biopsy Sepsis - As per ID. Liver mass - As per Hematology. Renal insufficiency - This is being managed by the anthropology faculty member. Shortness of breath - This may be multifactorial. Lamar Moctezuma MD Apr 14, 2017 07:28
[2017-04-14] MEDS ORDERED: VASOPRESSIN INJ 40 UNITS in DEXTROSE 5% IN WATER 100ML INJ 98 ML IV SCH ×2 (08:10)
--- NOTE | 2017-04-14 08:10 | HHI.CCPN ---
Subjective Remarks/Hospital Course 04/12: This is a 86-year-old male. Date of admission 04/10/2017. Date of consultation 04/12/2017. Past medical history includes coronary disease , hypertension, dyslipidemia, COPD, arthritis, PRO on CPAP at night, BPH, gastroesophageal reflux disease and glaucoma. Patient originally presented to [place] ED with chief complaint of generalized weakness and recurrent falls for several weeks duration worse on day of admission.. Positive for fever chills and night sweats. Hemodynamically stable. On admission, abnormal laboratory included elevated white cells of 85.2, previously 9.3 on 10/07/15. Bands 22%. Acute kidney injury, elevated lactate and elevated LFTs. 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 isaacs hematology was consulted for possible bone marrow biopsy/ coronary need biopsy of liver/gallbladder mass. Blood cultures 2 were drawn on that day as well. They're currently going Klebsiella pneumonia. She has been on piperacillin/tazobactam which is been continued by Dr. Almanza/infectious disease in consultation. CT abdomen/pelvis again revealed a 9 mm right lobe liver mass. Gallbladder versus paracytic or in the differential. CT thorax revealed bilateral pleural effusions 2.6 mass the right head of liver. Renal ultrasound revealed right echogenic kidneys. AFP, CEA and CA 19/9 normal. LDH elevated. Uric acid around 3. On 04/12, patient has had borderline blood pressures and was transferred to the intensive care unit. Lactate is currently 3.7. Patient is tachycardic with a mean arterial pressure greater than 65. Creatinine slightly rising long white blood cells. Patient did not get bone marrow or liver biopsy due to shortness of breath. Patient received 15 L in with inaccurate outputs document. 04/13: Resting in bed comfortably on nasal cannula. On phenylephrine 40 mics per minute for hypotension. 04/14: Underwent thoracentesis for right pleural effusion with drainage of 1 L of pleural fluid yesterday by IR. Right IJ Vas-Cath placed and patient was started on leukapheresis yesterday. Confused overnight. On phenylephrine 80 mics per minute. Was evaluated by cardiology yesterday who recommended aspirin and heparin in view of significant troponin elevation. 2-D echo with LVEF 20-25 %. Objective Vital Signs Date Time Temp Pulse Resp B/P (MAP) Pulse Ox O2 Delivery O2 Flow Rate FiO2 11/15/17 05:00 98.2 106 26 95/68 (77) 04/14/17 04:00 94 Simple Mask 8.00 04/14/17 02:20 35 Intake and Output 04/14/17 04/14/17 04/15/17 08:00 16:00 00:00 Intake Total 1245 ml Output Total 300 ml Balance 945 ml Result Diagram: 04/14/1715 04/14/1715 Imaging Last Impressions Renal Ultrasound 04/12/17 0000 Signed Impressions: Service Date/Time: Wednesday, April 12, 2017 13:22 - CONCLUSION: Somewhat small kidneys, right echogenic. Negative for hydronephrosis. Tony Pena MD FACR Chest X-Ray 04/12/17 0000 Signed Impressions: Service Date/Time: Wednesday, April 12, 2017 13:05 - CONCLUSION: 1. No pneumothorax. 2. Worsening bibasilar consolidations. 3. Tiny effusions. Morgan Patterson Jr., MD Consultation 04/11/17 0000 Signed Impressions: Service Date/Time: Tuesday, April 11, 2017 00:00 - CONCLUSION: Procedure was not performed as the patient became diaphoretic and short of breath. The patient was sent immediately back to the unit. Morgan Patterson Jr., MD Chest CT 04/11/17 0000 Signed Impressions: Service Date/Time: Tuesday, April 11, 2017 13:07 - CONCLUSION: 1. Moderate right and small left pleural effusion with concomitant bibasilar atelectatic changes. 2. In addition, there is patchy airspace disease in the right perihilar distribution. This may represent focal pulmonary edema although early infiltrate cannot be excluded. 3. 2.6 cm mass lesion pedunculated off the posterior aspect of the right hepatic lobe with a faint hypodensity in the left hepatic lobe. Please see the CT report of the abdomen and pelvis for further characterization. 4. Dense atherosclerotic calcification of the coronary arteries and aortic valve with some calcification of the mitral valve anulus. Collins Page MD Abdomen/Pelvis CT 04/09/17 0000 Signed Impressions: Service Date/Time: Sunday, April 09, 2017 23:05 - CONCLUSION: 1. 9 cm mass in the right lobe liver which may reflect gallbladder carcinoma or hepatocellular carcinoma. This would be accessible to percutaneous biopsy. 2. Mild ascites Raul Rodarte MD Objective Remarks GENERAL: 86-year-old male, resting in bed on nasal cannula with minimal respiratory distress SKIN: Warm and dry. HEAD: Atraumatic. Normocephalic. EYES: Pupils equal and round. No scleral icterus. No injection or drainage. ENT: No nasal bleeding or discharge. Mucous membranes pink and moist. NECK: Trachea midline. No JVD. CARDIOVASCULAR: Tachycardia, RR. S1, S2 without murmur RESPIRATORY: Diminished breath sounds. Few crackles in bases bilaterally. No wheeze.. Breath sounds equal bilaterally. GASTROINTESTINAL: Abdomen soft, sightly protuberant. Nontender. Hypoactive bowel sounds appreciated. MUSCULOSKELETAL: Extremities 1+ below the knee bilateral lower extremity edema. No obvious deformities. NEUROLOGICAL: Awake and alert. No obvious cranial nerve deficits. Motor grossly within normal limits. Five out of 5 muscle strength in the arms and legs. Normal speech. PSYCHIATRIC: Appropriate mood and affect; insight and judgment normal. Procedures LEFT IJ CENTRAL LINE 04-[address] PALUMBO A/P Assessment and Plan Neuro/Psych: History of cataract with IOC Glaucoma Acetaminophen 650 mg every 6 hours when necessary fever/pain 1-10 Currently not on any medications for underlying disorder CV: Severe sepsis secondary to Klebsiella bacteremia Lactic acidosis NSTEMI Hypotension Ischemic cardiomyopathy with LVEF 20-25% Currently on sterile water with 3 ampules sodium bicarbonate at 70 cc an hour Phenylephrine for pressor support to be titrated to maintain MAP greater than 65. We will transition to Levophed for pressor support provided patient is nontender to tachycardic. Add vasopressin low-dose. Serial lactates until clear 2-D echocardiogram with LVEF 20-25%. Cardiology consult by Dr. Thomas noted.Recommended Aspirin/ Heparin gtt - will check with the IR prior to initiating since patient is awaiting bone marrow and liver biopsy. Resp: Acute respiratory insufficiency PRO on CPAP COPD Right pleural effusion Nasal cannula to maintain saturations greater than equal to 90% currently on 6 L Incentive spirometry while awake Albuterol/ipratropium aerosols every 6 hours with albuterol aerosols every 2 hours when necessary dyspnea On CPAP at night + [address] thorax revealed bilateral pleural effusion right greater than left. 2.6 cm pedunculated mass right posterior lobe liver. Possible upper airway edema versus infiltrate Right pleural effusion status post thoracentesis done on 04/13 with drainage of 1 L of pleural fluid by IR. GI: 9 mm right liver mass surrounding and invading gallbladder Gastroesophageal reflux disease Esophageal dilatation by history Currently on heart healthy diet CT abdomen/pelvis revealed this 9 mm mass right lobe of liver. Ultrasound liver done on 04/13 revealed liver mass surrounding and invading gallbladder. Currently on famotidine 20 mg IV daily for GI prophylaxis. On omeprazole 20 mg daily at home Docusate sodium/senna 1 tablet twice a day for bowel regimen Follow LFTs. GI following for further evaluation of liver/gallbladder mass with possible cholangitis as source of sepsis. : History of TURP 3 BPH Chen catheter currently not indicated Endo: Sliding-scale insulin if indicated to maintain euglycemia Renal: Acute kidney injury - creatinine 1.57 Renal ultrasound revealed right echogenic kidney. Strict intake output, monitor and replete electrolites, follow BUN/creatinine Dr. Pettit, nephrology following. Monitor urine output. We will initiate Lasix 20 mg IV daily to attempt even fluid balance in view of LVEF of 20-25% Accurate I's and O's Receiving sodium bicarbonate 650 mg by mouth [address] Dr. Pettit Heme: Leukocytosis - leukemoid reaction. Being worked up by hemonc Suspected primary hematologic disorder causing leukocytosis in addition to sepsis Anemia Currently followed by Dr. Isaacs hematology Plan for bone marrow biopsy/liver biopsy by IR Noted alpha-fetoprotein 6, CEA and CA-19-9 negative. PSA normal On hydroxyurea 500 mg daily Hemonc started leukopheresis on 04/13 ID: Septic shock Klebsiella bacteremia Pertinent cultures 04/09 - blood cultures 2 - Klebsiella pneumonia 04/09 - urine - no growth 04/11 - blood cultures 2 - no growth Currently piperacillin/tazobactam per Dr. Almanza. Suspect biliary source. GI following. FEN: Replace electrolytes as clinically indicated MSK: Osteoarthritis PT evaluate and treat Access -Left IJ central line placed 04/12, RIJ vascath placed by IR on 04/13. Prophylaxis - GI - pantoprazole - DVT - SCD/holding pharmacological prophylaxis with pending biopsies of bone/ iliac crest and liver/gallbladder to be done by IR. Discussed with family and patient at bedside on 04/13. Discussed with Heme-onc [employer] as well as GI [employer] on 04/13 Condition critical. Patient hypotensive requiring increasing doses of pressors with acute IA, Klebsiella bacteremia from suspected cholangitis and worsening renal function. Time spent on critical care excluding procedures 35 minutes James Hdez MD Apr 14, 2017 08:10
[2017-04-14] MEDS ORDERED: NOREPINEPHRINE INJ 4 MG in SODIUM CHLOR 0.9% 250 ML INJ 246 ML IV PRN (08:15)
[2017-04-14] MEDS ORDERED: TERBUTALINE INJ 1 MG/ML AMP SQ PRN (08:15)
[2017-04-14] MEDS ORDERED: FUROSEMIDE 20 MG/2 ML VIAL IV PUSH ONE (08:15)
[2017-04-14 08:21] LABS: BANDS 43 % (0-6); PLATELET ESTIMATE SMEAR NORMAL (NORMAL); PLATELET MORPHOLOGY NORMAL (NORMAL); POLYS (SEG NEUTROPHILS) 57 % (16-70); SCAN/DIFF FINAL DIFF MANUAL; TOXIC VACUOLATION PRESENT (NONE SEEN); WBC DIFF SAMPLE 100
[2017-04-14 08:22] LABS: DOHLE BODIES PRESENT (NONE SEEN); TOXIC GRANULATION 1+ (NORMAL)
[2017-04-14] MEDS ORDERED: NOREPINEPHRINE-DEXTROSE DRIP 250 ML IV ONE (08:28)
[2017-04-14] MEDS: ASPIRIN 81 MG CHEW TAB PO SCH (09:00)
[2017-04-14] MEDS: TRIAMCINOLONE ACET 0.1% LOTION 60 ML BTL TOPICAL SCH ×2 (09:00→12:49)
[2017-04-14] MEDS: HYDROXYUREA 500 MG CAP PO SCH ×2 (09:00→12:49)
[2017-04-14] MEDS: DOCUSATE SODIUM 50 MG/SENNA 8.6 MG TAB PO SCH (09:00)
[2017-04-14 11:00] VITALS: PULSE 113
--- NOTE | 2017-04-14 11:05 | PD.ONC.PN ---
Subjective Subjective Remarks Afebrile Got confused overnight, thought he had been kidnapped Pt has discussed with daughter, and daughter agrees; he does not wish for any biopsies or further testing Palliative care at bedside when pt was seen Objective Data Date Time Temp Pulse Resp B/P (MAP) Pulse Ox O2 Delivery O2 Flow Rate FiO2 04/14/17 07:00 98 Simple Mask 8.00 04/14/17 07:00 73 04/14/17 07:00 97.9 105 20 100/73 (82) 98 04/14/17 05:00 98.2 106 26 95/68 (77) 04/14/17 04:00 94 Simple Mask 8.00 04/14/17 04:00 110 04/14/17 02:20 95 35 04/14/17 01:10 95 Simple Mask 8.00 04/13/17 23:00 100 Nasal Cannula 6.00 04/13/17 23:00 97.9 109 18 115/81 (92) 04/13/17 23:00 109 04/13/17 19:42 100 Nasal Cannula 6.00 04/13/17 19:31 97.7 112 22 92/59 (70) 04/13/17 19:31 110 04/13/17 17:10 96 Nasal Cannula 4.00 04/13/17 16:00 98.0 105 18 87/62 (70) 04/13/17 16:00 94 Nasal Cannula 6.00 04/13/17 15:35 81 04/13/17 15:00 112 04/13/17 15:00 87 04/13/17 14:00 81 04/13/17 13:10 98.5 113 28 86/60 (69) 94 04/13/17 13:00 86 04/13/17 11:00 95 Nasal Cannula 6.00 04/14/17 04/14/17 04/14/17 07:00 15:00 23:00 Intake Total 1245 ml Output Total 300 ml Balance 945 ml Result Diagram: 04/14/1715 04/14/1715 Laboratory Results Laboratory Tests Test 04/13/17 13:33 04/13/17 15:40 04/13/17 17:35 04/14/17 05:15 Pleural Fluid WBC 277 /MM3 Pleural Fluid RBC 207 /MM3 Pleural Fluid Neutrophils 91 % Pleural Fluid Lymphocytes 3 % Pleural Fluid Monocytes 5 % Pleural Fluid Histiocytes 1 % Pleural Fluid LDH 128 U/L Urine Color YELLOW Urine Turbidity CLOUDY Urine pH 5.5 Urine Specific [place] 1.044 Urine Protein 30 mg/dL Urine Glucose (UA) TRACE mg/dL Urine Ketones 10 mg/dL Urine Occult Blood TRACE Urine Nitrite NEG Urine Bilirubin NEG Urine Urobilinogen LESS THAN 2.0 MG/DL Urine Leukocyte Esterase SMALL Urine RBC 7 /hpf Urine WBC 15 /hpf Urine Squamous Epithelial Cells <1 /hpf Urine Mucus FEW /lpf Microscopic Urinalysis Comment CULTURE INDICATED Troponin I 13.40 NG/ML 19.30 NG/ML White Blood Count 102.0 TH/MM3 Red Blood Count 3.78 MIL/MM3 Hemoglobin 10.7 GM/DL Hematocrit 33.3 % Mean Corpuscular Volume 88.1 FL Mean Corpuscular Hemoglobin 28.3 PG Mean Corpuscular Hemoglobin Concent 32.2 % Red Cell Distribution Width 13.9 % Platelet Count 192 TH/MM3 Mean Platelet Volume 7.1 FL Neutrophils (%) (Auto) 97.9 % Lymphocytes (%) (Auto) 1.1 % Monocytes (%) (Auto) 0.5 % Eosinophils (%) (Auto) 0.2 % Basophils (%) (Auto) 0.3 % Neutrophils # (Auto) 99.9 TH/MM3 Lymphocytes # (Auto) 1.1 TH/MM3 Monocytes # (Auto) 0.5 TH/MM3 Eosinophils # (Auto) 0.2 TH/MM3 Basophils # (Auto) 0.3 TH/MM3 CBC Comment AUTO DIFF Differential Total Cells Counted 100 Neutrophils % (Manual) 57 % Band Neutrophils % 43 % Neutrophils # (Manual) 102.0 TH/MM3 Differential Comment FINAL DIFF MANUAL Toxic Granulation 1+ Toxic Vacuolation PRESENT Dohle Bodies PRESENT Platelet Estimate NORMAL Platelet Morphology Comment NORMAL Prothrombin Time 12.9 SEC Prothromb Time International Ratio 1.2 RATIO Activated Partial Thromboplast Time 38.5 SEC Fibrinogen 357 mg/dL Blood Urea Nitrogen 55 MG/DL Creatinine 2.54 MG/DL Random Glucose 105 MG/DL Total Protein 4.7 GM/DL Albumin 2.2 GM/DL Calcium Level 9.8 MG/DL Phosphorus Level 4.5 MG/DL Magnesium Level 2.6 MG/DL Uric Acid 3.3 MG/DL Alkaline Phosphatase 238 U/L Aspartate Amino Transf (AST/SGOT) 89 U/L Alanine Aminotransferase (ALT/SGPT) 67 U/L Lactate Dehydrogenase 443 U/L Total Bilirubin 1.0 MG/DL Sodium Level 138 MEQ/L Potassium Level 4.0 MEQ/L Chloride Level 102 MEQ/L Carbon Dioxide Level 24.4 MEQ/L Anion Gap 12 MEQ/L Estimat Glomerular Filtration Rate 24 ML/MIN Free Thyroxine 1.26 NG/DL Thyroid Stimulating Hormone 3rd Gen 1.910 uIU/ML Test 04/14/17 05:42 04/14/17 08:50 Urine Eosinophils NONE SEEN /HPF Urine Random Creatinine 156.4 MG/DL Urine Random Sodium LESS THAN 5 MEQ/L Lactic Acid Level 3.3 mmol/L Culture Results Microbiology Date/Time Source Procedure Growth Status 04/11/17 17:37 Blood Peripheral Aerobic Blood Culture - Preliminary NO GROWTH IN 2 DAYS Resulted 04/11/17 17:37 Blood Peripheral Anaerobic Blood Culture - Preliminary NO GROWTH IN 2 DAYS Resulted 04/11/17 17:32 Blood Peripheral Aerobic Blood Culture - Preliminary NO GROWTH IN 2 DAYS Resulted 04/11/17 17:32 Blood Peripheral Anaerobic Blood Culture - Preliminary NO GROWTH IN 2 DAYS Resulted 04/13/17 13:33 Fluid Pleural Fluid Fungal Smear Pending Received 04/13/17 13:33 Fluid Pleural Fluid Fungal Culture Pending Received 04/13/17 13:33 Fluid Pleural Fluid Acid Fast Stain Pending Received 04/13/17 13:33 Fluid Pleural Fluid Mycobacterial Culture Pending Received 04/13/17 13:33 Fluid Pleural Fluid Gram Stain Pending Received 04/13/17 13:33 Fluid Pleural Fluid Body Fluid Culture Pending Received 04/13/17 15:40 Urine Clean Catch Urine Culture Pending Received Imaging Studies Last 24 hours Impressions Chest X-Ray 04/14/17 0000 Signed Impressions: Service Date/Time: Friday, April 14, 2017 03:45 - CONCLUSION: New right sided IJ Vas-Cath. Patchy airspace disease right worse and left. Chapo Blanchard MD ADDENDUM: No left-sided chest tube is present. It is a radio opaque line external to the patient that when accompanying the course of the rib appears to be a chest tube. Chapo Blanchard MD Administered Medications Medications (Trade) Dose Ordered Sig/Tyler Route PRN Reason Start Time Stop Time Status Last Admin Dose Admin Triamcinolone Acetonide (Kenalog 0.1% Lotion) 1 applic TID TOPICAL 04/10/17 09:00 04/12/17 09:00 Albuterol/ Ipratropium (Duoneb Neb) 1 ampule Q6HR NEB NEB 04/11/17 22:30 04/14/17 03:26 Hydroxyurea (Hydrea) 500 mg TID PO 04/12/17 09:00 04/13/17 18:05 Piperacillin Sod/ Tazobactam Sod 50 ml @ 100 mls/hr Q6H IV 04/12/17 12:00 04/14/17 05:41 Sodium Chloride (NS Flush) 2 ml BID IV FLUSH 04/13/17 09:00 04/14/17 01:27 Famotidine (Pepcid Inj) 20 mg DAILY@0600 IV PUSH 04/13/17 06:00 04/14/17 05:42 Chlorhexidine Gluconate (Chlorhexidine 2% Cloth) 3 pack Taper DAILY@04 [facility] 04/13/17 04:00 04/09/18 03:59 04/14/17 04:00 Senna/Docusate Sodium (Marry-Colace) 1 tab BID PO 04/13/17 09:00 04/13/17 10:02 Sodium Bicarbonate 150 meq/Sterile Water 1,000 ml @ 70 mls/hr [id number] IV 04/14/17 00:00 04/14/17 07:14 Phenylephrine HCl 160 mg/Dextrose 500 ml @ 7.5 mls/hr TITRATE PRN IV Blood pressure management 04/13/17 01:00 04/13/17 01:22 Sodium Chloride (NS Flush) DAILY IV FLUSH 04/13/17 09:00 04/13/17 09:00 Allopurinol (Zyloprim) 100 mg DAILY PO 04/13/17 09:00 04/13/17 10:02 Heparin Sodium (Porcine) (Heparin Inj) 2,500 units UNSCH PRN IV PUSH APTT 25 TO 39 04/13/17 13:45 04/13/17 23:18 Calcium Gluconate 3 gm/Sodium Chloride 180 ml @ 90 mls/hr DAILY@1999 IV 04/13/17 20:00 04/13/17 20:34 Anticoagulant Citrate Dextose Jewell A (Acd Formula Inj) 1,000 ml DAILY@1999 OTHER 04/13/17 20:00 04/13/17 20:35 Objective Remarks GENERAL: Pleasant elderly male sitting up in bed with family at bedside. SKIN: Warm and dry. Vascath to R neck. HEAD: Normocephalic. EYES: No injection or drainage. NECK: Supple, trachea midline. CARDIOVASCULAR: +S1/S2, tachy RESPIRATORY: Anterior simpson clear. GASTROINTESTINAL: Abdomen soft, non-tender, nondistended. EXTREMITIES: No cyanosis. SCD's in place bilaterally. NEUROLOGICAL: Awake and alert. No obvious focal deficit. Assessment/Plan Problem List: (1) Leukocytosis ICD Codes: D72.829 - Elevated white blood cell count, unspecified Plan: --started on Hydrea on 04/12 d/t need for cytoreduction, worsening leukocytosis. --peripheral smear did not show any obvious blast cells --concern for underlying lymphoma, leukemia, MDS, MPN or another malignancy --check daily LDH, Uric acid, Mag and Phosp to monitor for TLS (2) Sepsis ICD Codes: A41.9 - Sepsis, unspecified organism Plan: --Gram-negative bacteremia and sepsis. --on Zosyn --ID following (3) Dyspnea ICD Codes: R06.00 - Dyspnea, unspecified Plan: --due to COPD/pneumonia/leukostasis (4) COPD (chronic obstructive pulmonary disease) ICD Codes: J44.9 - Chronic obstructive pulmonary disease Status: Acute (5) Pneumonia, community acquired ICD Codes: J18.9 - Community acquired pneumonia Status: Acute (6) Liver mass ICD Codes: R16.0 - Hepatomegaly, not elsewhere classified Status: Acute Plan: --Liver mass --CT guided biopsy when bone marrow biopsy is completed --AFP, CEA, 19-9 all WNL --CT chest did not show masses/LAD//possible pneumonia --CT ab showed 9-cm mass in the right lobe of the liver concerning for metastatic carcinoma. Assessment 86-year-old male with a history of hypertension, hyperlipidemia, coronary artery disease who presents to the emergency department with a 6-month history of loss of appetite, weight loss of 30 pounds and night sweats. Vanessa Cervantes, patient's daughter is only living relative and is decision maker. Patient is not and has no other living children. Please call Vanessa with updates: [phone] Plan 1. Patient noted to have increasing Troponin level. 2. Leukapheresis yesterday. Minimal improvement in symptoms and white blood cells. 3. The patient and daughter have made a decision to opt for hospice. 4. Plan to transfer him to [facility] today. 5. Discussed with the patient and the daughter that we will support their decision. We will be available if needed for anything further. Discussed with RN Discussed with Dr Arguelles Attending Statement The exam, history, and the medical decision-making described in the above note were completed with the assistance of the mid-level provider. I reviewed and agree with the findings presented. I attest that I had a [id number] encounter with the patient on the same day, and personally performed and documented my assessment and findings in the medical record family has opted for hospice DNR Problem Qualifiers (1) Dyspnea: Qualified Codes: R06.02 - Shortness of breath Aleida Forrester Apr 14, 2017 11:05 Godwin Epps MD Apr 14, 2017 22:41
[2017-04-14] MEDS: ALLOPURINOL 100 MG TAB PO SCH (11:08)
--- NOTE | 2017-04-14 11:18 | PD.CONS ---
Consult Service Palliative Care Consult Requested By Dr. Hdez . Primary Care Physician Azul Jones MD . Reason for Consultation a. To assist with evaluation and management of symptoms including: Dyspnea , anxiety b. To assist medical decision maker(s) with: better understanding of current medical conditions; weighing benefits/burdens of medical treatment options; making medical treatment decisions. . HPI History of Present Illness This 86-year-old male, with a past history of COPD, prior RI, prior admission for sepsis, and hypertension, has been slowly declining over the past year or 2 , with weight loss of more than 30 pounds and some progressive weakness. In the past couple weeks, his weakness has worsened and he fell in the shower ( without injury) because of weakness the day of his admission here. His significant other called 911 and the patient was brought to the emergency department on 04/10/17. 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 Oncology saw the patient regarding the marked leukocytosis, and felt that he may have a leukemia or lymphoma, recommending a bone marrow biopsy. A biopsy of the liver tumor was also recommended. By the day after admission, the patient blood was growing a gram-negative stephanie, the creatinine was up to 1.57, and a CT scan of the chest revealed patchy infiltrates and the previously noted liver mass. By 04/12/17, the patient became hypotensive, showing signs of shock, and was placed in intensive care and required pressors. A renal ultrasound revealed no hydronephrosis, alpha-fetoprotein was 6, and the CEA and CA19-9 were negative. The white blood count was up to 128, and the creatinine was up to 2.02. By 04/13/17, a thoracentesis was undertaken and 1 L removed. A right IJ line was placed, and leukapheresis was initiated. An echocardiogram revealed an EF of 20-25%, and the creatinine was now up to 2.54. The troponins that had been elevated now revealed a level of 19. The patient and his daughter were discussing a transition to comfort measures. Palliative Care was consulted to assist with symptom management, and to enter into discussions with the patient and family regarding all of his current illnesses, the prognosis, and the benefits and burdens of the various treatment choices. . Function/Cognitive Trajectory Although the patient had been declining in recent months, he was able to function independently and ambulate on his own until the past day or 2 prior to this admission. . Review of Systems ROS Limitations: Altered Mental Status Constitutional: COMPLAINS OF: Fatigue, Fever, Weight loss Endocrine: DENIES: Polyuria Eyes: DENIES: Eye inflammation Ears, nose, mouth, throat: DENIES: Epistaxis Respiratory: COMPLAINS OF: Shortness of breath Cardiovascular: COMPLAINS OF: Dyspnea on Exertion, DENIES: Chest pain Gastrointestinal: DENIES: Bloody stools, Diarrhea, Vomiting, Vomiting blood Genitourinary: DENIES: Hematuria Musculoskeletal: DENIES: Joint Swelling, Back pain Integumentary: DENIES: Rash Hematologic/Lymphatics: DENIES: Bruising Immunologic/Allergic: DENIES: Urticaria Neurologic: DENIES: Seizures Psychiatric: COMPLAINS OF: Confusion, DENIES: Hallucinations, Agitation Past Family Social History Coded Allergies: prednisone (Unverified Adverse Reaction, Intermediate, ELEVATED BLOOD GLUCOSE, 04/09/17) Past Medical History * CAD, history of RI * Admission for sepsis 2014 * COPD * Hypertension * Hyperlipidemia * Esophageal stricture * Peripheral neuropathy * History of sleep apnea * GERD * Glaucoma * Diverticulosis . Past Surgical History PAST SURGICAL HISTORY: Cataract Surgery, Lens Implant, TURP x 3, ORIF clavicle , right wrist surgery, esophageal dilatation . Reported Medications Reported Meds & Active Scripts Active Triamcinolone Topical (Triamcinolone Acetonide) 0.1% Lotn 1 Applic TOPICAL TID Reported Aspir-Low (Aspirin) 81 Mg Tabdr Nitrostat SL (Nitroglycerin) 0.4 Mg Subl 0.4 Mg SL DIRECTED PRN 1 tablet under the tongue as needed for chest pain. Repeat every 5 minutes for a total of 3 DOSES or call 911 if NO relief. Omeprazole 20 Mg Tab 20 Mg PO DAILY Calcium 600 with Vitamin D (Calcium Carbonate-Cholecalciferol) 600-400 mg-Unit Tab 1 Tab PO DAILY . Current Medications Medications (Trade) Dose Ordered Sig/Tyler Route Start Time Stop Time Status Last Admin (Kenalog 0.1% Lotion) 1 applic TID TOPICAL 04/10/17 09:00 04/12/17 09:00 (Duoneb Neb) 1 ampule Q6HR NEB NEB 04/11/17 22:30 04/14/17 03:26 (Hydrea) 500 mg TID PO 04/12/17 09:00 04/13/17 18:05 Piperacillin Sod/ Tazobactam Sod 50 ml @ 100 mls/hr Q6H IV 04/12/17 12:00 04/14/17 05:41 (NS Flush) 2 ml UNSCH PRN IV FLUSH 04/12/17 21:45 (NS Flush) 2 ml BID IV FLUSH 04/13/17 09:00 04/14/17 01:27 (Tylenol) 650 mg Q6H PRN PO 04/12/17 21:45 (Pepcid Inj) 20 mg DAILY@0600 IV PUSH 04/13/17 06:00 04/14/17 05:42 (Zofran Inj) 4 mg Q6H PRN IV PUSH 04/12/17 21:45 (Albuterol Neb) 2.5 mg Q2HR NEB PRN INH 04/12/17 21:45 Miscellaneous Information 1 [id number] XX 04/12/17 21:45 (Chlorhexidine 2% Cloth) 3 pack Taper DAILY@04 TOP 04/13/17 04:00 04/09/18 03:59 04/14/17 04:00 (Chlorhexidine 2% Cloth) 3 pack UNSCH PRN TOP 04/12/17 21:45 (Marry-Colace) 1 tab BID PO 04/13/17 09:00 04/13/17 10:02 (Milk Of Magnesia Liq) 30 ml Q12H PRN PO 04/12/17 21:45 (Senokot) 17.2 mg Q12H PRN PO 04/12/17 21:45 (Dulcolax Supp) 10 mg DAILY PRN RECTAL 04/12/17 21:45 (Lactulose Liq) 30 ml DAILY PRN PO 04/12/17 21:45 Sodium Bicarbonate 150 meq/Sterile Water 1,000 ml @ 70 mls/hr [id number] IV 04/14/17 00:00 04/14/17 07:14 Phenylephrine HCl 160 mg/Dextrose 500 ml @ 7.5 mls/hr TITRATE PRN IV 04/13/17 01:00 04/13/17 01:22 (NS Flush) DAILY IV FLUSH 04/13/17 09:00 04/13/17 09:00 (NS Flush) UNSCH PRN IV FLUSH 04/13/17 01:15 (Zyloprim) 100 mg DAILY PO 04/13/17 09:00 04/13/17 10:02 (Aspirin Chew) 81 mg DAILY PO 04/13/17 09:00 (Heparin Inj) 5,000 units UNSCH PRN IV PUSH 04/13/17 13:45 (Heparin Inj) 2,500 units UNSCH PRN IV PUSH 04/13/17 13:45 04/13/17 23:18 Heparin Sodium/ Dextrose 250 ml @ 9 mls/hr TITRATE PRN IV 04/13/17 08:00 (NS Flush) UNSCH PRN IV FLUSH 04/13/17 15:00 (Heparin Inj) UNSCH PRN IV FLUSH 04/13/17 15:00 Calcium Gluconate 3 gm/Sodium Chloride 180 ml @ 90 mls/hr DAILY@1999 IV 04/13/17 20:00 04/13/17 20:34 (Acd Formula Inj) 1,000 ml DAILY@1999 OTHER 04/13/17 20:00 04/13/17 20:35 (Heparin Inj) 5,000 units UNSCH PRN IV FLUSH 04/13/17 20:00 (Heparin Inj) 1,000 units UNSCH PRN IV FLUSH 04/13/17 20:00 Vasopressin 40 units/Dextrose 100 ml @ 6 mls/hr [id number] IV 04/14/17 08:10 Norepinephrine Bitartrate 4 mg/ Sodium Chloride 250 ml @ 7.5 mls/hr TITRATE PRN IV 04/14/17 08:15 (Brethine Inj) 1 mg UNSCH PRN SQ 04/14/17 08:15 Family History PAST FAMILY HISTORY: Reviewed. No h/o DM or CAD. No family history of leukemia. . Substance Use Tobacco: Quit smoking 49 years ago Alcohol: Occasional Prescription med abuse: None Illicits: None . Psychosocial History The patient was born right here in this hospital, and lived in this area his entire life. In recent years he has been living with his significant other Rosa Matta. 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 He was once, about 15 years ago, and is living with his significant other for the past 6 years. He has one daughter, Izzy. . Spiritual/Cultural Factors The patient has become more spiritual and methodist in recent years, no particular denomination connection. . Living Will: Completed, but not made available Health Care Surrogate: Completed, but not made available Durable Power of Division Human Resources Manager: Completed, but not made available Health Care Surrogate(s): Daughter: Izzy Cervantes . Ethical and Legal Issues There are no ethical issues that would impact his care or decision-making at this time. The patient has some persistent mild confusion and some delusions and doesn't have full capacity for decision-making at this time, although he is able to participate in some discussions. His daughter is the healthcare proxy decision- maker. . Physical Exam Vital Signs Date Time Temp Pulse Resp B/P (MAP) Pulse Ox O2 Delivery O2 Flow Rate FiO2 04/14/17 07:00 98 Simple Mask 8.00 04/14/17 07:00 73 04/14/17 07:00 97.9 105 20 100/73 (82) 98 04/14/17 05:00 98.2 106 26 95/68 (77) 04/14/17 04:00 94 Simple Mask 8.00 04/14/17 04:00 110 04/14/17 02:20 95 35 04/14/17 01:10 95 Simple Mask 8.00 04/13/17 23:00 100 Nasal Cannula 6.00 04/13/17 23:00 97.9 109 18 115/81 (92) 04/13/17 23:00 109 04/13/17 19:42 100 Nasal Cannula 6.00 04/13/17 19:31 97.7 112 22 92/59 (70) 04/13/17 19:31 110 04/13/17 17:10 96 Nasal Cannula 4.00 04/13/17 16:00 98.0 105 18 87/62 (70) 04/13/17 16:00 94 Nasal Cannula 6.00 04/13/17 15:35 81 04/13/17 15:00 112 04/13/17 15:00 87 04/13/17 14:00 81 04/13/17 13:10 98.5 113 28 86/60 (69) 94 04/13/17 13:00 86 04/13/17 11:00 95 Nasal Cannula 6.00 Exam CONSTITUTIONAL/GENERAL: This is an elderly, weak patient, in no apparent distress. TUBES/LINES/DRAINS: SCDs, right IJ line, nasal O2 SKIN: No jaundice, rashes, or lesions. Ecchymoses on upper extremities. No wounds seen anteriorly. Skin temperature appropriate. Not diaphoretic. HEAD: Atraumatic. Normocephalic. EYES: Pupils equal and round and reactive. Extraocular motions intact. No scleral icterus. No injection or drainage. Fundi not examined. ENT: Hearing grossly normal. Nose without bleeding or purulent drainage. NECK: Trachea midline. Supple, nontender. No palpable thyroid enlargement or nodularity. CARDIOVASCULAR: Regular rate and rhythm without murmurs, gallops, or rubs. No JVD. Peripheral pulses symmetric. RESPIRATORY/CHEST: Symmetric, unlabored respirations. Some scattered rhonchi are noted. GASTROINTESTINAL: Abdomen soft, non-tender, nondistended. No hepato-splenomegaly , or palpable masses. No guarding. Bowel sounds present. GENITOURINARY: Without palpable bladder distension. Chen catheter in place. MUSCULOSKELETAL: Extremities without clubbing, cyanosis, or edema. No joint tenderness or effusion noted. No calf tenderness. No mottling or clubbing. LYMPHATICS: No palpable cervical or supraclavicular adenopathy. NEUROLOGICAL: Awake and alert. Some global weakness but no focal deficits. Follows commands. A delusion about being kidnapped last night. Moves all extremities. PSYCHIATRIC: A little restlessness secondary to some confusion. . Diagnostic Tests Laboratory Laboratory Tests Test 04/12/17 06:00 04/12/17 10:49 04/12/17 16:33 04/12/17 19:58 White Blood Count 142.2 TH/MM3 (4.0-11.0) Red Blood Count 3.97 MIL/MM3 (4.50-5.90) Hemoglobin 11.3 GM/DL (13.0-17.0) Hematocrit 35.3 % (39.0-51.0) Mean Corpuscular Volume 88.9 FL (80.0-100.0) Mean Corpuscular Hemoglobin 28.5 PG (27.0-34.0) Mean Corpuscular Hemoglobin Concent 32.1 % (32.0-36.0) Red Cell Distribution Width 13.9 % (11.6-17.2) Platelet Count 323 TH/MM3 (150-450) Mean Platelet Volume 7.4 FL (7.0-11.0) CBC Comment AUTO DIFF Differential Total Cells Counted 200 Neutrophils % (Manual) 75 % (16-70) Band Neutrophils % 25 % (0-6) Monocytes % 1 % (0-8) Neutrophils # (Manual) 142.2 TH/MM3 (1.8-7.7) Differential Comment FINAL DIFF MANUAL Toxic Granulation 1+ (NORMAL) Platelet Estimate NORMAL (NORMAL) Platelet Morphology Comment NORMAL (NORMAL) Acanthocytes OCC (NORMAL) Blood Smear Pathologist Review Blood Urea Nitrogen 31 MG/DL (7-18) Creatinine 1.57 MG/DL (0.60-1.30) Random Glucose 140 MG/DL (74-106) Total Protein 5.3 GM/DL (6.4-8.2) Albumin 2.0 GM/DL (3.4-5.0) Calcium Level 9.5 MG/DL (8.5-10.1) Uric Acid 6.3 MG/DL (2.6-7.2) 6.7 MG/DL (2.6-7.2) Alkaline Phosphatase 290 U/L (45-117) Aspartate Amino Transf (AST/SGOT) 129 U/L (15-37) Alanine Aminotransferase (ALT/SGPT) 88 U/L (12-78) Lactate Dehydrogenase 509 U/L (87-241) Total Bilirubin 0.6 MG/DL (0.2-1.0) Sodium Level 134 MEQ/L (136-145) Potassium Level 4.6 MEQ/L (3.5-5.1) Chloride Level 105 MEQ/L (98-107) Carbon Dioxide Level 17.8 MEQ/L (21.0-32.0) Anion Gap 11 MEQ/L (5-15) Estimat Glomerular Filtration Rate 42 ML/MIN (>89) Tumor Marker Alpha Fetoprotein 1.9 NG/ML (0.5-8.0) Carcinoembryonic Antigen 0.8 NG/ML (0.2-5.0) CA 19-9 Antigen 23.6 U/ML (0.0-35.0) Prostate Specific Antigen 3.01 NG/ML (0.00-4.00) Prothrombin Time 11.8 SEC (9.8-11.6) Prothromb Time International Ratio 1.1 RATIO Activated Partial Thromboplast Time 31.2 SEC (24.3-30.1) Blood Gas Puncture Site LT RADIAL Blood Gas Patient Temperature 98.6 Blood Gas HCO3 16 mmol/L (22-26) Blood Gas Base Excess -9.8 mmol/L (-2-2) Blood Gas Oxygen Saturation 90 % (90-100) Arterial Blood pH 7.29 (7.380-7.420) Arterial Blood Partial Pressure CO2 33 mmHg (38-42) Arterial Blood Partial Pressure O2 72 mmHg (61-120) Arterial Blood Oxygen Content 14.0 Vol % (12.0-20.0) Arterial Blood Carboxyhemoglobin 0.7 % (0-4) Arterial Blood Methemoglobin 1.4 % (0-2) Blood Gas Hemoglobin 11.0 G/DL (12.0-16.0) Oxygen Delivery Device NASAL CANNULA Blood Gas Liter Flow 4 L/M Lactic Acid Level 3.7 mmol/L (0.4-2.0) Test 04/12/17 22:20 04/13/17 00:15 04/13/17 03:05 04/13/17 08:40 Nasal Screen MRSA (PCR) MRSA NOT DETECTED (NOT White Blood Count 128.3 TH/MM3 (4.0-11.0) 132.3 TH/MM3 (4.0-11.0) 124.9 TH/MM3 (4.0-11.0) Red Blood Count 3.74 MIL/MM3 (4.50-5.90) 3.69 MIL/MM3 (4.50-5.90) 3.60 MIL/MM3 (4.50-5.90) Hemoglobin 10.4 GM/DL (13.0-17.0) 10.3 GM/DL (13.0-17.0) 9.9 GM/DL (13.0-17.0) Hematocrit 33.0 % (39.0-51.0) 32.5 % (39.0-51.0) 31.6 % (39.0-51.0) Mean Corpuscular Volume 88.3 FL (80.0-100.0) 88.0 FL (80.0-100.0) 87.9 FL (80.0-100.0) Mean Corpuscular Hemoglobin 27.9 PG (27.0-34.0) 27.9 PG (27.0-34.0) 27.5 PG (27.0-34.0) Mean Corpuscular Hemoglobin Concent 31.6 % (32.0-36.0) 31.7 % (32.0-36.0) 31.3 % (32.0-36.0) Red Cell Distribution Width 13.7 % (11.6-17.2) 13.9 % (11.6-17.2) 13.8 % (11.6-17.2) Platelet Count 305 TH/MM3 (150-450) 321 TH/MM3 (150-450) 306 TH/MM3 (150-450) Mean Platelet Volume 7.3 FL (7.0-11.0) 7.2 FL (7.0-11.0) 7.1 FL (7.0-11.0) CBC Comment AUTO DIFF AUTO DIFF Differential Total Cells Counted 100 100 Neutrophils % (Manual) 58 % (16-70) 54 % (16-70) Band Neutrophils % 40 % (0-6) 44 % (0-6) Monocytes % 1 % (0-8) 2 % (0-8) Neutrophils # (Manual) 125.7 TH/MM3 (1.8-7.7) 129.7 TH/MM3 (1.8-7.7) Differential Comment FINAL DIFF MANUAL FINAL DIFF MANUAL Blastocytes 1 % (0-0) Toxic Granulation 2+ (NORMAL) 1+ (NORMAL) Toxic Vacuolation PRESENT (NONE SEEN) PRESENT (NONE SEEN) Dohle Bodies PRESENT (NONE SEEN) PRESENT (NONE SEEN) Platelet Estimate NORMAL (NORMAL) NORMAL (NORMAL) Platelet Morphology Comment NORMAL (NORMAL) NORMAL (NORMAL) Randal Cells 1+ (NORMAL) 1+ (NORMAL) Acanthocytes OCC (NORMAL) Keratocytes OCC (NORMAL) Uric Acid 7.6 MG/DL (2.6-7.2) 7.7 MG/DL (2.6-7.2) Prothrombin Time 12.1 SEC (9.8-11.6) 12.3 SEC (9.8-11.6) Prothromb Time International Ratio 1.1 RATIO 1.1 RATIO Activated Partial Thromboplast Time 33.6 SEC (24.3-30.1) 35.3 SEC (24.3-30.1) Fibrinogen 434 mg/dL (227-377) D-Dimer Quantitative (PE/DVT) 2.37 MG/L FEU (0.00-0.50) Blood Urea Nitrogen 40 MG/DL (7-18) Creatinine 2.02 MG/DL (0.60-1.30) Random Glucose 137 MG/DL (74-106) Total Protein 5.4 GM/DL (6.4-8.2) Albumin 2.6 GM/DL (3.4-5.0) Calcium Level 9.5 MG/DL (8.5-10.1) Phosphorus Level 5.3 MG/DL (2.5-4.9) Magnesium Level 2.5 MG/DL (1.5-2.5) Alkaline Phosphatase 255 U/L (45-117) Aspartate Amino Transf (AST/SGOT) 103 U/L (15-37) Alanine Aminotransferase (ALT/SGPT) 79 U/L (12-78) Lactate Dehydrogenase 422 U/L (87-241) Total Bilirubin 0.9 MG/DL (0.2-1.0) Sodium Level 136 MEQ/L (136-145) Potassium Level 4.6 MEQ/L (3.5-5.1) Chloride Level 105 MEQ/L (98-107) Carbon Dioxide Level 17.9 MEQ/L (21.0-32.0) Anion Gap 13 MEQ/L (5-15) Estimat Glomerular Filtration Rate 32 ML/MIN (>89) Lactic Acid Level 4.3 mmol/L (0.4-2.0) Ammonia 35 MCMOL/L (11-32) Total Creatine Kinase 73 U/L (39-308) Troponin I 11.60 NG/ML (0.02-0.05) Amylase Level 17 U/L (25-115) Lipase 49 U/L (73-393) Test 04/13/17 13:33 04/13/17 15:40 04/13/17 17:35 04/14/17 05:15 Pleural Fluid WBC 277 /MM3 (0-10) Pleural Fluid RBC 207 /MM3 (0-0) Pleural Fluid Neutrophils 91 % Pleural Fluid Lymphocytes 3 % Pleural Fluid Monocytes 5 % Pleural Fluid Histiocytes 1 % Pleural Fluid LDH 128 U/L Urine Color YELLOW (YELLW/STRAW) Urine Turbidity CLOUDY (CLEAR) Urine pH 5.5 (5.0-8.5) Urine Specific Mcleod 1.044 (1.002-1.035) Urine Protein 30 mg/dL (NEG-TRACE) Urine Glucose (UA) TRACE mg/dL (NEG) Urine Ketones 10 mg/dL (NEG) Urine Occult Blood TRACE (NEG) Urine Nitrite NEG (NEG) Urine Bilirubin NEG (NEG) Urine Urobilinogen LESS THAN 2.0 MG/DL (LESS Urine Leukocyte Esterase SMALL (NEG) Urine RBC 7 /hpf (0-3) Urine WBC 15 /hpf (0-5) Urine Squamous Epithelial Cells <1 /hpf (0-5) Urine Mucus FEW /lpf (OCC) Microscopic Urinalysis Comment CULTURE INDICATED Troponin I 13.40 NG/ML (0.02-0.05) 19.30 NG/ML (0.02-0.05) White Blood Count 102.0 TH/MM3 (4.0-11.0) Red Blood Count 3.78 MIL/MM3 (4.50-5.90) Hemoglobin 10.7 GM/DL (13.0-17.0) Hematocrit 33.3 % (39.0-51.0) Mean Corpuscular Volume 88.1 FL (80.0-100.0) Mean Corpuscular Hemoglobin 28.3 PG (27.0-34.0) Mean Corpuscular Hemoglobin Concent 32.2 % (32.0-36.0) Red Cell Distribution Width 13.9 % (11.6-17.2) Platelet Count 192 TH/MM3 (150-450) Mean Platelet Volume 7.1 FL (7.0-11.0) Neutrophils (%) (Auto) 97.9 % (16.0-70.0) Lymphocytes (%) (Auto) 1.1 % (9.0-44.0) Monocytes (%) (Auto) 0.5 % (0.0-8.0) Eosinophils (%) (Auto) 0.2 % (0.0-4.0) Basophils (%) (Auto) 0.3 % (0.0-2.0) Neutrophils # (Auto) 99.9 TH/MM3 (1.8-7.7) Lymphocytes # (Auto) 1.1 TH/MM3 (1.0-4.8) Monocytes # (Auto) 0.5 TH/MM3 (0-0.9) Eosinophils # (Auto) 0.2 TH/MM3 (0-0.4) Basophils # (Auto) 0.3 TH/MM3 (0-0.2) CBC Comment AUTO DIFF Differential Total Cells Counted 100 Neutrophils % (Manual) 57 % (16-70) Band Neutrophils % 43 % (0-6) Neutrophils # (Manual) 102.0 TH/MM3 (1.8-7.7) Differential Comment FINAL DIFF MANUAL Toxic Granulation 1+ (NORMAL) Toxic Vacuolation PRESENT (NONE SEEN) Dohle Bodies PRESENT (NONE SEEN) Platelet Estimate NORMAL (NORMAL) Platelet Morphology Comment NORMAL (NORMAL) Prothrombin Time 12.9 SEC (9.8-11.6) Prothromb Time International Ratio 1.2 RATIO Activated Partial Thromboplast Time 38.5 SEC (24.3-30.1) Fibrinogen 357 mg/dL (227-377) Blood Urea Nitrogen 55 MG/DL (7-18) Creatinine 2.54 MG/DL (0.60-1.30) Random Glucose 105 MG/DL (74-106) Total Protein 4.7 GM/DL (6.4-8.2) Albumin 2.2 GM/DL (3.4-5.0) Calcium Level 9.8 MG/DL (8.5-10.1) Phosphorus Level 4.5 MG/DL (2.5-4.9) Magnesium Level 2.6 MG/DL (1.5-2.5) Uric Acid 3.3 MG/DL (2.6-7.2) Alkaline Phosphatase 238 U/L (45-117) Aspartate Amino Transf (AST/SGOT) 89 U/L (15-37) Alanine Aminotransferase (ALT/SGPT) 67 U/L (12-78) Lactate Dehydrogenase 443 U/L (87-241) Total Bilirubin 1.0 MG/DL (0.2-1.0) Sodium Level 138 MEQ/L (136-145) Potassium Level 4.0 MEQ/L (3.5-5.1) Chloride Level 102 MEQ/L (98-107) Carbon Dioxide Level 24.4 MEQ/L (21.0-32.0) Anion Gap 12 MEQ/L (5-15) Estimat Glomerular Filtration Rate 24 ML/MIN (>89) Free Thyroxine 1.26 NG/DL (0.76-1.46) Thyroid Stimulating Hormone 3rd Gen 1.910 uIU/ML (0.358-3.740) Test 04/14/17 05:42 04/14/17 08:50 Urine Eosinophils NONE SEEN /HPF (NONE SEEN) Urine Random Creatinine 156.4 MG/DL Urine Random Sodium LESS THAN 5 MEQ/L Lactic Acid Level 3.3 mmol/L (0.4-2.0) Result Diagram: 04/14/1715 04/14/1715 Microbiology Microbiology Date/Time Source Procedure Growth Status 04/11/17 17:37 Blood Peripheral Aerobic Blood Culture - Preliminary NO GROWTH IN 2 DAYS Resulted 04/11/17 17:37 Blood Peripheral Anaerobic Blood Culture - Preliminary NO GROWTH IN 2 DAYS Resulted 04/11/17 17:32 Blood Peripheral Aerobic Blood Culture - Preliminary NO GROWTH IN 2 DAYS Resulted 04/11/17 17:32 Blood Peripheral Anaerobic Blood Culture - Preliminary NO GROWTH IN 2 DAYS Resulted 04/13/17 13:33 Fluid Pleural Fluid Fungal Smear Pending Received 04/13/17 13:33 Fluid Pleural Fluid Fungal Culture Pending Received 04/13/17 13:33 Fluid Pleural Fluid Acid Fast Stain Pending Received 04/13/17 13:33 Fluid Pleural Fluid Mycobacterial Culture Pending Received 04/13/17 13:33 Fluid Pleural Fluid Gram Stain Pending Received 04/13/17 13:33 Fluid Pleural Fluid Body Fluid Culture Pending Received 04/13/17 15:40 Urine Clean Catch Urine Culture Pending Received Imaging Last Impressions Chest X-Ray 04/14/17 0000 Signed Impressions: Service Date/Time: Friday, April 14, 2017 03:45 - CONCLUSION: New right sided IJ Vas-Cath. Patchy airspace disease right worse and left. Chapo Blanchard MD ADDENDUM: No left-sided chest tube is present. It is a radio opaque line external to the patient that when accompanying the course of the rib appears to be a chest tube. Chapo Blanchard MD Thoracentesis Ultrasound 04/13/17 Signed Impressions: Service Date/Time: Thursday, April 13, 2017 12:57 - CONCLUSION: Uncomplicated ultrasound guided right thoracentesis. Morgan Patterson Jr., MD Lower Extremity Ultrasound 04/13/17 Signed Impressions: Service Date/Time: Thursday, April 13, 2017 08:23 - CONCLUSION: No DVT is identified within either lower extremity. Gerald Fernandez MD Liver Ultrasound 04/13/17 Signed Impressions: Service Date/Time: Thursday, April 13, 2017 08:44 - CONCLUSION: 1. There is a 13 cm solid mass in the right lobe of the liver surrounding the gallbladder. Gallbladder is filled with solid mass versus sludge. Differential diagnostic considerations include both primary and secondary neoplasm of the liver including gallbladder carcinoma. Percutaneous biopsy could be performed for histologic diagnosis, if desired clinically. 2. Increased echotexture of the renal parenchyma suggesting medical renal disease. 3. Bilateral pleural effusions and free fluid within the abdomen. The most recent prior CT demonstrated findings diagnostic of peritoneal disease. Gerald Fernandez MD Catheter Placement X-Ray 04/13/17 Signed Impressions: Service Date/Time: Thursday, April 13, 2017 14:00 - CONCLUSION: Uncomplicated line placement as above. Lloyd Pena MD Renal Ultrasound 04/12/17 Signed Impressions: Service Date/Time: Wednesday, April 12, 2017 13:22 - CONCLUSION: Somewhat small kidneys, right echogenic. Negative for hydronephrosis. Tony Pena MD FACR Consultation 04/11/17 Signed Impressions: Service Date/Time: Tuesday, April 11, 2017 00:00 - CONCLUSION: Procedure was not performed as the patient became diaphoretic and short of breath. The patient was sent immediately back to the unit. Morgan Patterson Jr., MD Chest CT 04/11/17 Signed Impressions: Service Date/Time: Tuesday, April 11, 2017 13:07 - CONCLUSION: 1. Moderate right and small left pleural effusion with concomitant bibasilar atelectatic changes. 2. In addition, there is patchy airspace disease in the right perihilar distribution. This may represent focal pulmonary edema although early infiltrate cannot be excluded. 3. 2.6 cm mass lesion pedunculated off the posterior aspect of the right hepatic lobe with a faint hypodensity in the left hepatic lobe. Please see the CT report of the abdomen and pelvis for further characterization. 4. Dense atherosclerotic calcification of the coronary arteries and aortic valve with some calcification of the mitral valve anulus. Collins Page MD Abdomen/Pelvis CT 04/09/17 0000 Signed Impressions: Service Date/Time: Sunday, April 09, 2017 23:05 - CONCLUSION: 1. 9 cm mass in the right lobe liver which may reflect gallbladder carcinoma or hepatocellular carcinoma. This would be accessible to percutaneous biopsy. 2. Mild ascites Raul Rodarte MD Procedures Thoracentesis 04/13/17 Leukapheresis 04/13/17 Right IJ line 04/12/17 . Patient/Family Conference Present at Family Conference: Patient's daughter and patient's significant other, as well as former hospice clinical manager Dao Moore and Palliative Care ELECTRICAL SIGN WIRERPatricia Holden. . Family Conference Time (mins): 44 Family Conference Location: Bedside, Hallway Issues Discussed: * Palliative care role, purpose, approach * Hospice care role, purpose, approach * Hospice Care Center locations and facility role * Additional medical, psychosocial, and spiritual history * Patients general health, functional status, and cognitive changes in the months leading up to the current hospitalization * Patient/family understanding of the current medical problems * Patient/family understanding of prognosis * Patients goals of care as best understood from advance directives and/or conversations and/or values * Current medical treatment options and benefits/burdens of those options * Likely scenarios comparing ongoing aggressive care with a transition to comfort measures only * Questions answered to the best of my ability * Palliative care contact information provided The patient is able to articulate that he definitely does not want to be resuscitated or placed on life support machines, and that he is interested in remaining comfortable until comes. The patient's daughter/HCS wants to transition to comfort care/hospice at this time, with a likely transfer to the hospice Care Center today. They understand that the patient is likely to live only hours or days. . 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% (6) COPD (7) CAD history of prior RI (8) hypertension (9) hyperlipidemia (10) history of esophageal stricture (11) peripheral neuropathy (12) history of sleep apnea (13) GERD (14) glaucoma (15) diverticulosis Symptom Scale: (1) dyspnea 0-10 Scale: 2 (better controlled on nasal cannula O2) (2) anxiety 0-10 Scale: 1 (3) encephalopathy 0-10 Scale: 3 (likely multifactorial) Pertinent Non-Medical Issues Psychosocial: , lives with significant other, retired from [employer], 1 daughter Spiritual: The patient has become more spiritual and methodist in recent years , no particular denomination connection. The family is supported by former hospice clinical manager Dao Moore. Legal: The patient has some persistent mild confusion and some delusions and doesn't have full capacity for decision-making at this time, although he is able to participate in some discussions. His daughter is the healthcare proxy decision-maker. Ethical issues impacting care: None . Important Contacts Daughter: Izzy Cervantes -- [phone] . Prognosis This patient's prognosis is poor, with multiple organ system failure and probably 2 malignancies. He has been declining in recent months, and he is appropriate for hospice services. . Code Status: No Code Plan * DO NOT RESUSCITATE * DECISION-MAKING: The patient has some persistent mild confusion and some delusions and doesn't have full capacity for decision-making at this time, although he is able to participate in some discussions. His daughter is the healthcare proxy decision-maker. * GOALS: The patient is able to articulate that he definitely does not want to be resuscitated or placed on life support machines, and that he is interested in remaining comfortable until comes. The patient's daughter/HCS wants to transition to comfort care/hospice at this time, with a likely transfer to the hospice Care Center today. They understand that the patient is likely to live only hours or days. * Hospice consult placed. * SYMPTOMS: The patient's dyspnea is being managed with supplemental O2 at this time. His encephalopathy and restlessness may benefit from low-dose Haldol or lorazepam. Further comfort medications will be managed by hospice. * Palliative Care will continue to follow the patient during this hospitalization. . Time Spent Total Floor Time (mins): 76 Face to Face Time (mins): 40 >50% Counseling/Coord of Care: Yes (d/w Dr. Hdez and with RN) Thank you for the opportunity to participate in the care of Mr. Santiago. Attestation To help prompt me to consider important information that might be impacting today's encounter and assessment, information from prior notes written by myself or my colleagues may have been "brought forward" into today's note. My signature on this note, however, is an attestation that I personally performed the exam, history, and/or decision-making noted today, and, unless otherwise indicated, the interactions with patient, family, and staff as well as the review of records all occurred today. I also attest that the listed assessment and stated plan reflect my best clinical judgment today based on the combination of historical information, prior notes, and today's exam/ interactions. When time spent is documented, it refers only to time spent today by the signer, or if indicated, combined time spent today by collaborating physician/nurse practitioner. Alyx Arguelles MD Apr 14, 2017 11:18
[2017-04-14] MEDS ORDERED: LORazepam 2 MG/ML VIAL IV PUSH PRN (12:00)
[2017-04-14 13:16] VITALS: BP 92/62; PULSE 111
--- NOTE | 2017-04-14 14:30 | OTSOAPIP ---
RECEIVED OCCUPATIONAL THERAPY ORDERS. ATTEMEPTED TO SEE PATIENT, HOWEVER PATIENT WAS JUST DISCAHRGED TO HOSPICE CARE CENTER. INTERDISCIPLINARY COMMUNICATION: REVIEWED ELECTRONIC MEDICAL RECORD, SPOKE WITH RN Therapist: Kary Trammell OTR/L Signature on file
[2017-04-14 17:32] LABS: HEMOGLOBIN A1a 1.7 %; HEMOGLOBIN A1b 1.7 %; HEMOGLOBIN Ao 83.6 %; HEMOGLOBIN LA1C 1.9 %
== END 2017-04-14 14:55 | disposition hospice, inpatient (51) | DRG 871 ==
LOC: NEPC 20:56 → NEDA 04-10 00:02 → N06B 04-10 00:49 → HCIN 04-11 08:30 → HCVI 04-12 18:33
PROVIDERS: ADMIT Internal Medicine Critical Care Medicine; ATTEND Internal Medicine Critical Care Medicine
PROC: 02HV33Z Insertion of Infusion Device into Superior Vena Cava, Percutaneous Approach (ICD-10-PCS; principal; 2017-04-13)
PROC: B544ZZA Ultrasonography of Left Jugular Veins, Guidance (ICD-10-PCS; 2017-04-13)
PROC: 0W993ZZ Drainage of Right Pleural Cavity, Percutaneous Approach (ICD-10-PCS; 2017-04-13)
PROC: 05HM33Z Insertion of Infusion Device into Right Internal Jugular Vein, Percutaneous Approach (ICD-10-PCS; 2017-04-13)
PROC: B543ZZA Ultrasonography of Right Jugular Veins, Guidance (ICD-10-PCS; 2017-04-13)
PROC: B513ZZA Fluoroscopy of Right Jugular Veins, Guidance (ICD-10-PCS; 2017-04-13)
PROC: 6A551Z1 Pheresis of Leukocytes, Multiple (ICD-10-PCS; 2017-04-13)
DX: A41.59 Other Gram-negative sepsis (principal); J18.9 Pneumonia, unspecified organism; E88.3 Tumor lysis syndrome; I21.4 Non-ST elevation (NSTEMI) myocardial infarction; J86.9 Pyothorax without fistula; R65.21 Severe sepsis with septic shock; J90 Pleural effusion, not elsewhere classified; G93.40 Encephalopathy, unspecified; J44.0 Chronic obstructive pulmonary disease with (acute) lower respiratory infection; K83.0 Cholangitis; E87.2 Acidosis; N17.9 Acute kidney failure, unspecified; E86.0 Dehydration; Z51.5 Encounter for palliative care; D37.6 Neoplasm of uncertain behavior of liver, gallbladder and bile ducts; I10 Essential (primary) hypertension; E78.5 Hyperlipidemia, unspecified; R63.4 Abnormal weight loss; I25.10 Atherosclerotic heart disease of native coronary artery without angina pectoris; G47.33 Obstructive sleep apnea (adult) (pediatric); K21.9 Gastro-esophageal reflux disease without esophagitis; N40.0 Benign prostatic hyperplasia without lower urinary tract symptoms; I25.5 Ischemic cardiomyopathy; D72.823 Leukemoid reaction; K59.00 Constipation, unspecified; I25.2 Old myocardial infarction; D64.9 Anemia, unspecified; G62.9 Polyneuropathy, unspecified; R29.6 Repeated falls; R63.0 Anorexia; R09.02 Hypoxemia; K57.90 Diverticulosis of intestine, part unspecified, without perforation or abscess without bleeding; L30.9 Dermatitis, unspecified; H40.9 Unspecified glaucoma; M19.90 Unspecified osteoarthritis, unspecified site; F10.21 Alcohol dependence, in remission; F17.200 Nicotine dependence, unspecified, uncomplicated; F19.21 Other psychoactive substance dependence, in remission; F41.9 Anxiety disorder, unspecified; Z66 Do not resuscitate; Z68.25 Body mass index [BMI] 25.0-25.9, adult
CPT/HCPCS: 32555; 36511; 36556; 36600; 71010; 71260; 74177; 76705; 76775; 76937; 77001; 80048; 80053; 81001; 82105; 82140; 82150; 82378; 82550; 82570; 82805; 82948; 83036; 83605; 83615; 83690; 83735; 83880; 84100; 84153; 84300; 84439; 84443; 84484; 84550; 85007; 85027; 85060; 85379; 85384; 85610; 85730; 86301; 87015; 87040; 87070; 87077; 87086; 87102; 87116; 87186; 87205; 87206; 87641; 87804; 89051; 93005; 93306; 93970; 94150; 94640; 94664; 96365; 96367; C1729; C1752; J0610; J0692; J1644; J1940; J2060; J2370; J2405; J2543; J2783; J2920; J3370; J7030; J7040; J7050; J7060; P9045; P9047; Q9967